=== PATIENT | male | born 1950 | race Caucasian/White ===

== ENCOUNTER 2016-07-10 04:36 | Inpatient (IN) | payer MEDICARE ==
[~2016-07-10] VITALS: Ht 175.3 cm; Wt 104.5 kg
[2016-07-10] VITALS (22 sets, daily range): BP systolic 81–125; BP diastolic 51–75
[2016-07-10] MEDS ORDERED: GUAIFENESIN 200 MG/10 ML LIQUID. PO PRN (05:15)
[2016-07-10] MEDS ORDERED: ALBUTEROL SULFATE 2.5 MG/3 ML NEBU. NEB PRN (05:15)
[2016-07-10 05:42] LABS: HEMATOCRIT 40.9 % (39.0-53.0); HEMOGLOBIN 13.2 g/dL (13.0-17.5); RED BLOOD COUNT 4.61 x10^6/uL (4.30-5.70); RED CELL DISTRIBUTION WIDTH 14.9 % (11.5-14.5); WHITE BLOOD COUNT 13.2 x10^3/uL (4.0-11.0)
[2016-07-10] MEDS ORDERED: AMLO10TA2 PO (05:49)
[2016-07-10] MEDS ORDERED: CARV12.52 PO (05:49)
[2016-07-10] MEDS ORDERED: POTA10CA PO (05:49)
[2016-07-10] MEDS ORDERED: POLY17PO5 PO (05:49)
[2016-07-10] MEDS ORDERED: LEVO175T5 PO (05:49)
[2016-07-10] MEDS ORDERED: ZOLP10TA4 PO (05:49)
[2016-07-10] MEDS ORDERED: FURO20TA3 PO (05:49)
[2016-07-10] MEDS ORDERED: SERT100T PO (05:49)
[2016-07-10] MEDS ORDERED: FERR-26 PO (05:49)
[2016-07-10] MEDS ORDERED: ASPI81TA2 PO (05:49)
[2016-07-10] MEDS ORDERED: ACYC200C PO (05:49)
[2016-07-10] MEDS ORDERED: ATORVASTATIN CA80 MG PO (05:49)
[2016-07-10] MEDS ORDERED: LORA1TAB PO (05:49)
[2016-07-10] MEDS ORDERED: PILO5TAB PO (05:49)
[2016-07-10 06:04] LABS: CALCIUM 8.5 mg/dL (8.5-10.1); CREATININE 1.2 mg/dL (0.7-1.3); GFR 60.8; POTASSIUM 3.8 mmol/L (3.5-5.1)
--- NOTE | 2016-07-10 08:24 | RAD ---
EXAM: Chest, single view. HISTORY: Shortness of air. COMPARISON: None. FINDINGS: A frontal view of the chest is obtained. There is diffuse interstitial infiltrate with partial bilateral lower lobe consolidation and small pleural effusions. There is no pneumothorax. There is enlargement of the cardiac silhouette. IMPRESSION: 1. Diffuse interstitial infiltrate with partial bilateral lower lobe consolidation and small effusions. Follow-up to confirm resolution. 2. Enlargement of the cardiac silhouette, a component of which is likely due to portable technique.
[2016-07-10] MEDS: IPRATRPIUM/ALBUTEROL 0.5/2.5MG 3 ML NEBU. NEB SCH ×4 (08:47→20:31)
[2016-07-10] MEDS ORDERED: ACETAMINOPHEN 500 MG TABLET PO PRN (09:45)
[2016-07-10] MEDS ORDERED: ONDANSETRON PF 4 MG/2 ML VIAL. IV PRN (09:45)
[2016-07-10] MEDS ORDERED: HYDROCODONE/APAP 5/325MG TABLET. PO PRN (09:45)
[2016-07-10] MEDS ORDERED: ZOLPIDEM 5 MG TABLET. PO PRN (09:45)
--- NOTE | 2016-07-10 09:45 | PDOC2 ---
CONSULT Date of Consult Date of Consult DATE: 07/10/16 TIME: 09:44 Reason for Consult Reason for Consult: Congestive heart failure Referring Physician Referring Physician: Dr. Bess Identification/Chief Complaint Chief Complaint Shortness of breath Source Source: Chart review, Patient History of Present Illness Reason for Visit: 66-year-old male presented with shortness of breath that started one hour prior to presentation. He complained of mild chest discomfort with shortness of breath but denied any palpitations or syncope. He stated that he was diagnosed with aspiration pneumonia in the past but feels like this is slightly different than his symptoms at that time. Past Medical History Past Medical History Recurrent aspiration pneumonia Dysphagia Tongue cancer s/p radiation therapy in 2007 Hypothyroidism Hypertension Hyperlipidemia Hypercholesterolemia Peripheral vascular disease BPH Vitamin B12 deficiency Past Surgical History Past Surgical History Tonsillectomy Carpal tunnel surgery Radical neck surgery Family History Family History Coronary artery disease Colon cancer Anxiety/depression Social History Social History Patient quit smoking in 1982, denied any alcohol or drug abuse Current Medications Current Medications Current Medications Albuterol/ Ipratropium (Duoneb) 3 ml RTQID NEB Last administered on 07/10/16t 08:47; Start 07/10/16 at 08:00 Albuterol Sulfate (Ventolin Neb Soln) 2.5 mg PRN Q2HR PRN NEB SHORTNESS OF BREATH; Start 07/10/16 at 05:15 Guaifenesin (Robitussin) 200 mg PRN Q4HRS PRN PO COUGH; Start 07/10/16 at 05:15 Acetaminophen (Tylenol) 500 mg PRN Q6HRS PRN PO MILD PAIN / TEMP; Start at 09:45 Ondansetron HCl (Zofran) 4 mg PRN Q6HRS PRN IV NAUSEA/VOMITING; Start 07/10/16 at 09:45 Morphine Sulfate 2 mg PRN Q2HR PRN IV PAIN; Start 07/10/16 at 09:45; Status UNV Acyclovir (Zovirax) 200 mg 5XDAY PO ; Start 07/10/16 at 10:00 Amlodipine Besylate (Norvasc) 10 mg DAILY PO ; Start 07/10/16 at 10:30 Aspirin (Children'S Aspirin) 81 mg DAILY PO ; Start 07/10/16 at 10:30 Carvedilol (Coreg) 12.5 mg BID PO ; Start 07/10/16 at 10:30 Ferrous Sulfate (Feosol) 325 mg DAILY PO ; Start 07/10/16 at 10:30 Furosemide (Lasix) 20 mg DAILY PO ; Start 07/10/16 at 10:30 Levothyroxine Sodium (Synthroid) 175 mcg DAILY07 PO ; Start 07/10/16 at 10:30 Lorazepam (Ativan) 1 mg BID PO ; Start 07/10/16 at 10:30 Pilocarpine HCl (Salagen) 5 mg BID PO ; Start 07/10/16 at 10:30 Polyethylene Glycol (miraLAX PACKET) 17 gm DAILY PO ; Start 07/10/16 at 10:30 Atorvastatin Calcium (Lipitor) 80 mg QHS PO ; Start 07/10/16 at 21:00 Potassium Chloride (Klor-Con) 10 meq DAILYWBKFT PO ; Start 07/10/16 at 10:30 Sertraline HCl (Zoloft) 100 mg DAILY PO ; Start 07/10/16 at 10:30 Zolpidem Tartrate (Ambien) 5 mg PRN QHS PRN PO INSOMNIA; Start 07/10/16 at 09: 45 Acetaminophen/ Hydrocodone Bitart (Lortab 5/325) 1 tab PRN Q4HRS PRN PO PAIN; Start 07/10/16 at 09:45; Status UNV Active Scripts Active Reported Acyclovir 200 Mg Capsule 1 Cap PO 5XDAY Zolpidem Tartrate 10 Mg Tablet 1 Tab PO QHS Zoloft (Sertraline Hcl) 100 Mg Tablet 1 Tab PO DAILY Potassium Chloride 10 Meq Capsule.er 10 Meq PO DAILY Miralax (Polyethylene Glycol 3350) 17 Gm Powd.pack 1 Packet PO DAILY Pilocarpine Hcl 5 Mg Tablet 5 Mg PO BID Lorazepam 1 Mg Tablet 1 Tab PO BID Levothyroxine Sodium 175 Mcg Tablet 1 Tab PO DAILY Furosemide 20 Mg Tablet 1 Tab PO DAILY Ferrous Sulfate 325 Mg Tablet 1 Tab PO DAILY Carvedilol 12.5 Mg Tablet 1 Tab PO BID Atorvastatin Calcium 80 Mg Tablet 1 Tab PO DAILY Aspirin 81 Mg Tab.chew 1 Tab PO DAILY Amlodipine Besylate 10 Mg Tablet 10 Mg PO DAILY Allergies Allergies: Coded Allergies: ciprofloxacin (Verified Allergy, Intermediate, 07/10/16) codeine (Verified Adverse Reaction, Intermediate, Nausea, 07/10/16) ROS PSYCHOLOGICAL ROS: No: Hallucinations Eyes: No Loss of vision HEENT: No: Epistaxis Respiratory: YES: Cough, Shortness of breath Cardiovascular: yes Chest Pain Gastrointestinal: No Diarrhea, No Vomiting Genitourinary: No Hematuria Neurological: No Seizures Skin: No Rash Physical Exam General: Alert, mild distress HEENT: Atraumatic, PERRLA Lungs: Other (fine bilateral crepitations) Heart: Regular rate Abdomen: Soft, No tenderness Extremities: No edema Psych/Mental Status: Mood NL Vitals VITALS Vital Signs Date Time Temp Pulse Resp B/P Pulse Ox O2 Delivery O2 Flow Rate FiO2 07/10/16 08:50 88 Nasal Cannula 4.0 07/10/16 08:00 69 24 103/59 07/10/16 07:00 98.0 98.0 Labs Labs Laboratory Tests Test 07/10/16 05:15 White Blood Count 13.2x10^3/uL (4.0-11.0) Red Blood Count 4.61x10^6/uL (4.30-5.70) Hemoglobin 13.2g/dL (13.0-17.5) Hematocrit 40.9% (39.0-53.0) Mean Corpuscular Volume 89fL (79-100) Mean Corpuscular Hemoglobin 29pg (25-35) Mean Corpuscular Hemoglobin Concent 32g/dL (31-37) Red Cell Distribution Width 14.9% (11.5-14.5) Platelet Count 171x10^3/uL (140-400) Sodium Level 140mmol/L (136-145) Potassium Level 3.8mmol/L (3.5-5.1) Chloride Level 105mmol/L (98-107) Carbon Dioxide Level 27mmol/L (21-32) Anion Gap 8 (6-14) Blood Urea Nitrogen 31mg/dL (8-26) Creatinine 1.2mg/dL (0.7-1.3) Estimated GFR (Cockcroft-Gault) 60.8 Glucose Level 161mg/dL (70-99) Calcium Level 8.5mg/dL (8.5-10.1) WT-Xiw-V-Type Natriuretic Peptide 406pg/mL (0-124) Laboratory Tests Test 07/10/16 05:15 White Blood Count 13.2x10^3/uL (4.0-11.0) Red Blood Count 4.61x10^6/uL (4.30-5.70) Hemoglobin 13.2g/dL (13.0-17.5) Hematocrit 40.9% (39.0-53.0) Mean Corpuscular Volume 89fL (79-100) Mean Corpuscular Hemoglobin 29pg (25-35) Mean Corpuscular Hemoglobin Concent 32g/dL (31-37) Red Cell Distribution Width 14.9% (11.5-14.5) Platelet Count 171x10^3/uL (140-400) Sodium Level 140mmol/L (136-145) Potassium Level 3.8mmol/L (3.5-5.1) Chloride Level 105mmol/L (98-107) Carbon Dioxide Level 27mmol/L (21-32) Anion Gap 8 (6-14) Blood Urea Nitrogen 31mg/dL (8-26) Creatinine 1.2mg/dL (0.7-1.3) Estimated GFR (Cockcroft-Gault) 60.8 Glucose Level 161mg/dL (70-99) Calcium Level 8.5mg/dL (8.5-10.1) WY-Rdo-K-Type Natriuretic Peptide 406pg/mL (0-124) Assessment/Plan Assessment/Plan 1. Acute respiratory failure most probably secondary to combination of mild acute on chronic diastolic heart failure and interstitial lung disease. Pulmonary team has been consulted for further recommendations. 2. Acute on chronic diastolic heart failure: 2-D echo in December 2015 showed normal left ventricle systolic function with diastolic dysfunction. His BNP is slightly elevated. This seems to have improved with Lasix he received an ED. He is presently well compensated clinically. He stated that he had cardiac catheterization approximately one and a half years ago in [facility] and was told he did not have any coronary artery disease. 3. Hypertension: Controlled 4. Hyperlipidemia: Statins 5. Hypothyroidism: On levothyroxine Thank you for your consultation ASHLEE FOX MD Jul 10, 2016 09:45
[2016-07-10] MEDS ORDERED: ACYCLOVIR 200 MG CAPSULE PO SCH (10:00)
[2016-07-10] MEDS: POLYETHYLENE GLYCOL 3350 17 GM PACKET. PO SCH (10:09)
[2016-07-10] MEDS: FERROUS SULFATE 325 MG TABLET PO SCH (10:10)
[2016-07-10] MEDS: SERTRALINE 50 MG TABLET. PO SCH (10:10)
[2016-07-10] MEDS: ASPIRIN 81 MG TAB.CHEW PO SCH (10:11)
[2016-07-10] MEDS ORDERED: ACYCLOVIR 200 MG CAPSULE PO PRN (10:30)
[2016-07-10] MEDS ORDERED: LEVOTHYROXINE 175 MCG TABLET PO SCH (10:30)
[2016-07-10] MEDS ORDERED: FUROSEMIDE 20 MG TABLET PO SCH (10:30)
[2016-07-10] MEDS ORDERED: LORAZEPAM 1 MG TABLET. PO SCH (10:30)
[2016-07-10] MEDS: CARVEDILOL 12.5 MG TABLET PO SCH ×2 (10:30→19:13)
[2016-07-10] MEDS ORDERED: AMLODIPINE BESYLATE 10 MG TABLET PO SCH (10:30)
[2016-07-10] MEDS: POTASSIUM CHLORIDE 10 MEQ TABLET.ER. PO SCH (10:30)
[2016-07-10] MEDS ORDERED: LORAZEPAM 1 MG TABLET. PO PRN (10:30)
--- NOTE | 2016-07-10 10:30 | PDOC1 ---
History and Physical Date of Admission Date of Admission DATE: 07/10/16 TIME: 10:22 Identification/Chief Complaint Chief Complaint SOA Source Source: Chart review, Patient History of Present Illness History of Present Illness 66 y/o male transferred from [facility] of CHF and respiratory failure, was close to NIPPV/IPPV. Pt seen and examined on ICU with RN at bedside, Looks comfortable now, breathing better, no inc in soa, no CP. BUt admits to feeling SOA after exertion ,. NOt on chronic O2 at home but claims has cpap. Admits to not wathcing his fluiid and salt intake, on lasix at home 20 PO qD and claims compliance,. Legs not swollen. Got 60 mgs lasix at [place], breathing better LAst echo December 2015, EF 55%. Cleared from cards to t/o ICU BNP 406, CXR shows cardiomegaly, modest effusion. Pulmo consulted Pt is hoarse, has hx of throat CA and on pureed diet at home, Lives with , Ambulates with a walker at times,. Sees Dr. Stoll as OP He was in [place] x 5 days last NOv 1 in ICU for CHF and pneumonia Past Medical History Cardiovascular: CHF, HTN Heme/Onc: Other (throat CA) ENT: Other (throat CA) Past Surgical History Past Surgical History: Other (reviewed, non contributory) Family History Family History: No Significant Social History Smoke: Quit ALCOHOL: none Drugs: None Current Medications Current Medications Current Medications Albuterol/ Ipratropium (Duoneb) 3 ml RTQID NEB Last administered on 07/10/16t 08:47; Start 07/10/16 at 08:00 Albuterol Sulfate (Ventolin Neb Soln) 2.5 mg PRN Q2HR PRN NEB SHORTNESS OF BREATH; Start 07/10/16 at 05:15 Guaifenesin (Robitussin) 200 mg PRN Q4HRS PRN PO COUGH; Start 07/10/16 at 05:15 Acetaminophen (Tylenol) 500 mg PRN Q6HRS PRN PO MILD PAIN / TEMP; Start at 09:45 Ondansetron HCl (Zofran) 4 mg PRN Q6HRS PRN IV NAUSEA/VOMITING; Start 07/10/16 at 09:45 Morphine Sulfate 2 mg PRN Q2HR PRN IV PAIN; Start 07/10/16 at 09:45 Acyclovir (Zovirax) 200 mg 5XDAY PO ; Start 07/10/16 at 10:00 Amlodipine Besylate (Norvasc) 10 mg DAILY PO ; Start 07/10/16 at 10:30 Aspirin (Children'S Aspirin) 81 mg DAILY PO Last administered on 07/10/16 10: 11; Start 07/10/16 at 10:30 Carvedilol (Coreg) 12.5 mg BID PO ; Start 07/10/16 at 10:30 Ferrous Sulfate (Feosol) 325 mg DAILY PO Last administered on 07/10/16 10:10; Start 07/10/16 at 10:30 Furosemide (Lasix) 20 mg DAILY PO Last administered on 07/10/16 10:10; Start 07/10/16 at 10:30 Levothyroxine Sodium (Synthroid) 175 mcg DAILY07 PO Last administered on 10:11; Start 07/10/16 at 10:30 Lorazepam (Ativan) 1 mg BID PO ; Start 07/10/16 at 10:30 Pilocarpine HCl (Salagen) 5 mg BID PO ; Start 07/10/16 at 10:30 Polyethylene Glycol (miraLAX PACKET) 17 gm DAILY PO Last administered on 10:09; Start 07/10/16 at 10:30 Atorvastatin Calcium (Lipitor) 80 mg QHS PO ; Start 07/10/16 at 21:00 Potassium Chloride (Klor-Con) 10 meq DAILYWBKFT PO ; Start 07/10/16 at 10:30 Sertraline HCl (Zoloft) 100 mg DAILY PO Last administered on 07/10/16 10:10; Start 07/10/16 at 10:30 Zolpidem Tartrate (Ambien) 5 mg PRN QHS PRN PO INSOMNIA; Start 07/10/16 at 09: 45 Acetaminophen/ Hydrocodone Bitart (Lortab 5/325) 1 tab PRN Q4HRS PRN PO PAIN; Start 07/10/16 at 09:45 Active Scripts Active Reported Acyclovir 200 Mg Capsule 1 Cap PO 5XDAY Zolpidem Tartrate 10 Mg Tablet 1 Tab PO QHS Zoloft (Sertraline Hcl) 100 Mg Tablet 1 Tab PO DAILY Potassium Chloride 10 Meq Capsule.er 10 Meq PO DAILY Miralax (Polyethylene Glycol 3350) 17 Gm Powd.pack 1 Packet PO DAILY Pilocarpine Hcl 5 Mg Tablet 5 Mg PO BID Lorazepam 1 Mg Tablet 1 Tab PO BID Levothyroxine Sodium 175 Mcg Tablet 1 Tab PO DAILY Furosemide 20 Mg Tablet 1 Tab PO DAILY Ferrous Sulfate 325 Mg Tablet 1 Tab PO DAILY Carvedilol 12.5 Mg Tablet 1 Tab PO BID Atorvastatin Calcium 80 Mg Tablet 1 Tab PO DAILY Aspirin 81 Mg Tab.chew 1 Tab PO DAILY Amlodipine Besylate 10 Mg Tablet 10 Mg PO DAILY Allergies Allergies: Coded Allergies: ciprofloxacin (Verified Allergy, Intermediate, 07/10/16) codeine (Verified Adverse Reaction, Intermediate, Nausea, 07/10/16) ROS General: No: Appetite, Chills, Fatigue, Malaise, Night Sweats, Other PSYCHOLOGICAL ROS: No: Anxiety, Behavioral Disorder, Concentration difficultie , Decreased libido, Depression, Disorientation, Hallucinations, Hostility, Irritablity, Memory difficulties, Mood Swings, Obsessive thoughts, Other, Physical abuse, Sexual abuse, Sleep disturbances, Suicidal ideation Eyes: No Blurry vision, No Decreased vision, No Double vision, No Dry eyes, No Excessive tearing, No Eye Pain, No Itchy Eyes, No Loss of vision, No Other, No Photophobia, No Scotomata, No Uses contacts, No Uses glasses HEENT: No: Epistaxis, Heacaches, Hearing change, Nasal congestion, Nasal discharge, Oral lesions, Other, Sinus pain, Sneezing, Snoring, Sore Throat, Tinnitus, Vertigo, Visual Changes, Vocal changes ALLERGY AND IMMUNOLOGY: No: Hives, Insect Bite Sensitivity, Itchy/Watery Eyes, Nasal Congestion, Other, Post Nasal Drip, Seasonal Allergies Hematological and Lymphatic: No: Bleeding Problems, Blood Clots, Blood Transfusions, Brusing, Night Sweats, Other, Pallor, Swollen Lymph Nodes ENDOCRINE: No: Breast Changes, Galactorrhea, Hair Pattern Changes, Hot Flashes , Malaise/lethargy, Mood Swings, Other, Palpitations, Polydipsia/polyuria, Skin Changes, Temperature Intolerance, Unexpected Weight Changes Respiratory: YES: SOB with excertion, Shortness of breath Cardiovascular: No Chest Pain, No Edema, No Lt Headedness, No Orthopnea, No Other, No Palpitations, No Paroxysmal Noc. Dyspnea Gastrointestinal: No Abdominal Pain, No Constipation, No Diarrhea, No Hematochezia, No Melena, No Nausea, No Other, No Vomiting Genitourinary: No , No , No , No , No , No , No , No Discharge, No Dysuria, No Flank Pain, No Frequency, No Hematuria, No Incontinence, No Other, No Pain, No Retention, No Urgency Musculoskeletal: No Gait Disturbance, No Joint Pain, No Joint Stiffness, No Joint Swelling, No Muscle Pain, No Muscular Weakness, No Other, No Pain In:, No Swelling In: Neurological: No Behavorial Changes, No Bowel/Bladder ControlChng, No Confusion , No Dizziness, No Gait Disturbance, No Headaches, No Impaired Coord/balance, No Memory Loss, No Numbness/Tingling, No Other, No Seizures, No Speech Problems , No Tremors, No Visual Changes, No Weakness Physical Exam General: Alert, Oriented X3, Cooperative, No acute distress HEENT: Atraumatic, PERRLA, EOMI Lungs: Normal air movement, Other Heart: S1S2, RRR Abdomen: Normal bowel sounds, Soft, No tenderness, No hepatosplenomegaly, No masses Male Genitals Exam: normal genitalia, normal prostate Rectal Exam: not examined PELVIC: Nml ext genitalia Extremities: No clubbing, No cyanosis, No edema, Normal pulses, No tenderness/ swelling Skin: No rashes, No breakdown, No significant lesion Neuro: Normal gait, Normal speech, Strength at 5/5 X4 ext, Normal tone, Sensation intact, Cranial nerves 3-12 NL, Reflexes 2+ Psych/Mental Status: Mental status NL, Mood NL Vitals Vitals Vital Signs Date Time Temp Pulse Resp B/P Pulse Ox O2 Delivery O2 Flow Rate FiO2 07/10/16 09:00 68 20 107/64 93 Nasal Cannula 4.0 07/10/16 07:00 98.0 98.0 Labs Labs Laboratory Tests Test 07/10/16 05:15 White Blood Count 13.2x10^3/uL (4.0-11.0) Red Blood Count 4.61x10^6/uL (4.30-5.70) Hemoglobin 13.2g/dL (13.0-17.5) Hematocrit 40.9% (39.0-53.0) Mean Corpuscular Volume 89fL (79-100) Mean Corpuscular Hemoglobin 29pg (25-35) Mean Corpuscular Hemoglobin Concent 32g/dL (31-37) Red Cell Distribution Width 14.9% (11.5-14.5) Platelet Count 171x10^3/uL (140-400) Sodium Level 140mmol/L (136-145) Potassium Level 3.8mmol/L (3.5-5.1) Chloride Level 105mmol/L (98-107) Carbon Dioxide Level 27mmol/L (21-32) Anion Gap 8 (6-14) Blood Urea Nitrogen 31mg/dL (8-26) Creatinine 1.2mg/dL (0.7-1.3) Estimated GFR (Cockcroft-Gault) 60.8 Glucose Level 161mg/dL (70-99) Calcium Level 8.5mg/dL (8.5-10.1) VE-Thl-P-Type Natriuretic Peptide 406pg/mL (0-124) Laboratory Tests Test 07/10/16 05:15 White Blood Count 13.2x10^3/uL (4.0-11.0) Red Blood Count 4.61x10^6/uL (4.30-5.70) Hemoglobin 13.2g/dL (13.0-17.5) Hematocrit 40.9% (39.0-53.0) Mean Corpuscular Volume 89fL (79-100) Mean Corpuscular Hemoglobin 29pg (25-35) Mean Corpuscular Hemoglobin Concent 32g/dL (31-37) Red Cell Distribution Width 14.9% (11.5-14.5) Platelet Count 171x10^3/uL (140-400) Sodium Level 140mmol/L (136-145) Potassium Level 3.8mmol/L (3.5-5.1) Chloride Level 105mmol/L (98-107) Carbon Dioxide Level 27mmol/L (21-32) Anion Gap 8 (6-14) Blood Urea Nitrogen 31mg/dL (8-26) Creatinine 1.2mg/dL (0.7-1.3) Estimated GFR (Cockcroft-Gault) 60.8 Glucose Level 161mg/dL (70-99) Calcium Level 8.5mg/dL (8.5-10.1) YS-Gkz-D-Type Natriuretic Peptide 406pg/mL (0-124) VTE Prophylaxis Ordered VTE Prophylaxis Devices: Yes VTE Pharmacological Prophylaxi: Yes Assessment/Plan Assessment/Plan 1. CHF, diastolic predominantly likely (EF 55%) 2. Dietary indiscretion 3, Bilateral modest pleural effusions 4. Hx throat CA with hx radiation? 5. Leukocytosis 6. REcent CAP treated in the hospital 7. 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
[2016-07-10] MEDS: PILOCARPINE 5 MG TABLET. PO SCH ×2 (10:36→19:14)
--- NOTE | 2016-07-10 11:44 | PDOC ---
Provider Note Provider Note dictated acute on chronic progressive aspiration pneumonia see orders TAJ ALEXANDER MD Jul 10, 2016 11:44
[2016-07-10] MEDS: ENOXAPARIN 40 MG/0.4 ML DISP.SYRIN. SQ SCH (12:45)
[2016-07-10] MEDS: PIPERACILLIN/TAZOBACTAM 3.375 GM in IV NORMAL SALINE 50ML 50 ML IV SCH ×3 (12:45→23:59)
--- NOTE | 2016-07-10 12:50 | RAD ---
EXAM: Neck CT without contrast. HISTORY: Dysphasia. TECHNIQUE: Computed tomographic images of the neck were obtained without contrast. One or more of the following individualized dose reduction techniques were utilized for this examination: 1. Automated exposure control. 2. Adjustment of the mA and/or kV according to patient size. 3. Use of iterative reconstruction technique. COMPARISON: None. FINDINGS: There are findings consistent with right neck dissection. There is associated architectural distortion and scarring along the anterior right neck. No pathologically enlarged lymph node or mass is seen, with evaluation limited due to the absence of contrast. The airway is widely patent. The visualized portions of the brain demonstrate subtle areas of hypodensity likely due to chronic small vessel disease. The orbits, paranasal sinuses and mastoid air cells are unremarkable. There are degenerative changes within the cervical spine. No suspicious osseous lesion is seen. There is groundglass and nodular infiltrate within the left upper lobe. There is also suspected groundglass infiltrate within the right upper lobe and superior segment of the left lower lobe. There are enlarged mediastinal and left hilar lymph nodes, possibly reactive in etiology. For reference purposes, an aortopulmonary window lymph node measures 1.9 cm. IMPRESSION: 1. Left upper lobe, and to a lesser extent, right upper lobe and left lower lobe pneumonia. Follow-up to confirm complete resolution. 2. 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 Evaluation for a recurrent or residual neoplasm is limited in the absence of contrast. However, the airway is widely patent. 3. Enlarged left mediastinal and hilar lymph nodes, possibly reactive in etiology. Attention at the time of follow-up can be performed to assess for interval change.
[2016-07-10] MEDS ORDERED: VANCOMYCIN 2 GM in IV NORMAL SALINE 500ML BAG 500 ML IV ONE (13:00)
--- NOTE | 2016-07-10 13:00 | CONS ---
DATE OF CONSULTATION: PULMONARY CONSULTATION ATTENDING PHYSICIAN: Manuel Bess M.D. REASON FOR CONSULTATION: Respiratory failure, abnormal CT chest, diffuse pneumonia. HISTORY OF PRESENT ILLNESS: The patient is a 66-year-old male who has history of throat cancer about 6-7 years ago. He was treated with radiation and chemo. About 18 months ago, he was told that he should not be eating anything by mouth and PEG tube was recommended, but he chose to continue to eat, he said there was a matter of quality of life. However, he has been eating pureed diet. I have reviewed the patient's old CT chest from [place] in 02/2016, where he had minimal left lower lobe infiltrate, which progressed significantly to involve bilateral lower lobes, more on the right than on the left in 04/2016. He was brought into the hospital as a transfer from [facility] with a diagnosis of respiratory failure and CHF. He was placed on noninvasive positive pressure ventilation. The patient currently is on 6 liters of nasal cannula. I have reviewed patient's CT chest. There are extensive and progressive diffuse alveolar infiltrates and almost causing whiteout of the lower lobes. There is also small tiny pleural effusion and some reactive adenopathy. He was also seen by disintegrator operator who diuresed him, but clinically he is not in heart failure. His proBNP is only 406. The patient continues to have a cough with eating and continues to do pureed diet. He has not had a follow up with him ENT in a long time as he moved to [place]. PAST MEDICAL HISTORY: Significant for history of throat cancer, status post radiation and chemo about 6-7 years ago. History of normal ejection fraction of 55%. Very minimal tobacco. PAST SURGICAL HISTORY: No recent surgery. ALLERGIES: CIPRO AND CODEINE. REVIEW OF SYSTEMS: Twelve-point systems were obtained, pertinent positives discussed in my history of present illness, otherwise noncontributory. All systems that were negative were reviewed as well. MEDICATIONS: Reviewed. He is not on antibiotics. PHYSICAL EXAMINATION: VITAL SIGNS: Blood pressure 104/73 seen now down to 85 systolic. Pulse ox was on 6 liters 93%. HEENT: Sclerae nonicteric. NECK: Supple. LUNGS: With coarse breath sounds. CARDIOVASCULAR: Regular rate and rhythm. ABDOMEN: Soft. EXTREMITIES: With no pitting edema. LABORATORY DATA: Reviewed showed BUN is 30 and creatinine 1.2. White cell count 13.2 and hemoglobin is 13.2 as well. IMPRESSION: 1. Acute hypoxic respiratory failure due to highly suspected [id number] aspiration pneumonia. 2. Abnormal ct chest. Review of CT chest from February and April of last year and now done this admission has shown development of progressive and extensive consolidation involving the both lungs and this is highly likely related to chronic aspiration. The patient has throat cancer and was told not to eat anything by mouth, 18 months ago. However, he kept on eating and just doing pureed diet. The CT chest findings and clinical findings highly favor chronic ongoing aspiration. 3. Minimal history of tobacco use. 4. History of throat cancer, status post radiation and chemo done about 6-7 years ago, has not had any followup since then. RECOMMENDATIONS: 1. I have discussed with the patient that at this point, I would keep him NPO. and then repeat a video swallow test. 2. I would also do a CT neck to assess the anatomy regarding throat cancer. 3. The patient is chronically aspirating and he continues to eat pureed diet. Repeat swallow will be ordered and if shows persistent aspiration, he has to make a decision regarding whether he prefers to continue eating against medical advice or rather have a PEG tube. If patient prefers to eat then, I would recommend a DNR/DNI status. 4. Once a CT neck is done, we may assess upper airway anatomy and need for bronchoscopy. 5. In the meantime, I have added Zosyn and vancomycin to cover for gram negative including Pseudomonas and also positive organisms. 6. Continue 6 liters nasal cannula for now. 7. Discussed at length with RN and RT. We will follow along with you. CRITICAL CARE TIME: 39 minutes. TAJ ALEXANDER MD DR: GAURAV/bronwyn JOB#: [id number] / [id number] CALIN
[2016-07-10] MEDS: VANCOMYCIN 1.5 GM in IV NORMAL SALINE 500ML BAG 500 ML IV SCH (13:55)
[2016-07-10] MEDS: LORAZEPAM 2 MG/ML VIAL IV PRN (19:13)
[2016-07-10] MEDS: FAMOTIDINE 20 MG/2 ML VIAL IVP SCH (19:13)
[2016-07-10] MEDS: ATORVASTATIN CALCIUM 40 MG TABLET. PO SCH (19:14)
[2016-07-10] MEDS: MORPHINE SULFATE 2 MG/ML DISP.SYRIN. IV PRN ×3 (19:45→23:59)
[2016-07-11] VITALS (15 sets, daily range): BP systolic 91–126; BP diastolic 51–73
[2016-07-11] MEDS: VANCOMYCIN 1.5 GM in IV NORMAL SALINE 500ML BAG 500 ML IV SCH ×2 (02:00→14:18)
--- NOTE | 2016-07-11 07:25 | PDOC ---
PULMONARY PROGRESS NOTES Subjective Pt with no increase soa cough persist Vitals Vital Signs Date Time Temp Pulse Resp B/P Pulse Ox O2 Delivery O2 Flow Rate FiO2 07/10/16 23:59 Nasal Cannula 07/10/16 20:31 93 5.0 07/10/16 20:00 98.9 74 24 117/54 98.9 ROS: No Nausea, No Chest Pain, No Abdominal Pain, No Increase Cough General: Alert Lungs: Crackles Cardiovascular: S1, S2 Abdomen: Soft, Non-tender Neuro Exam: Alert Extremities: No Edema Skin: Warm Labs Laboratory Tests Test 07/10/16 05:00 07/10/16 05:15 Nasal Screen MRSA (PCR) Negative (Negative) White Blood Count 13.2x10^3/uL (4.0-11.0) Red Blood Count 4.61x10^6/uL (4.30-5.70) Hemoglobin 13.2g/dL (13.0-17.5) Hematocrit 40.9% (39.0-53.0) Mean Corpuscular Volume 89fL (79-100) Mean Corpuscular Hemoglobin 29pg (25-35) Mean Corpuscular Hemoglobin Concent 32g/dL (31-37) Red Cell Distribution Width 14.9% (11.5-14.5) Platelet Count 171x10^3/uL (140-400) Sodium Level 140mmol/L (136-145) Potassium Level 3.8mmol/L (3.5-5.1) Chloride Level 105mmol/L (98-107) Carbon Dioxide Level 27mmol/L (21-32) Anion Gap 8 (6-14) Blood Urea Nitrogen 31mg/dL (8-26) Creatinine 1.2mg/dL (0.7-1.3) Estimated GFR (Cockcroft-Gault) 60.8 Glucose Level 161mg/dL (70-99) Calcium Level 8.5mg/dL (8.5-10.1) [id number]-Type Natriuretic Peptide 406pg/mL (0-124) Medications Active Scripts Medications Dose Route/Sig Days Date Category Acyclovir 200 Mg Capsule 1 Cap PO 5XDAY 07/10/16 Reported Zolpidem Tartrate 10 Mg Tablet 1 Tab PO QHS 07/10/16 Reported Zoloft (Sertraline Hcl) 100 Mg Tablet 1 Tab PO DAILY 1/29/17 Reported Potassium Chloride 10 Meq Capsule.er 10 Meq PO DAILY 07/10/16 Reported Miralax (Polyethylene Glycol 3350) 17 Gm Powd.pack 1 Packet PO DAILY 07/10/16 Reported Pilocarpine Hcl 5 Mg Tablet 5 Mg PO BID 07/10/16 Reported Lorazepam 1 Mg Tablet 1 Tab PO BID 07/10/16 Reported Levothyroxine Sodium 175 Mcg Tablet 1 Tab PO DAILY 07/10/16 Reported Furosemide 20 Mg Tablet 1 Tab PO DAILY 07/10/16 Reported Ferrous Sulfate 325 Mg Tablet 1 Tab PO DAILY 07/10/16 Reported Carvedilol 12.5 Mg Tablet 1 Tab PO BID 07/10/16 Reported Atorvastatin Calcium 80 Mg Tablet 1 Tab PO DAILY 07/10/16 Reported Aspirin 81 Mg Tab.chew 1 Tab PO DAILY 07/10/16 Reported Amlodipine Besylate 10 Mg Tablet 10 Mg PO DAILY 07/10/16 Reported Impression . 1. Acute hypoxic respiratory failure due to highly suspected puvth-ox-vvmvgal aspiration pneumonia. 2. Bilateral infiltrates etiology unclear 3. Minimal history of tobacco use. 4. History of throat cancer, status post radiation and chemo done about 6-7 years ago, has not had any followup since then. CT Neck report noted no new disease limited exam Plan . D/W patient the above findings will proceed with Broncho Reviewed R/B/A pt accepted continue antibx video swallow today UMANG HOYT MD Jul 11, 2016 07:25
[2016-07-11] MEDS: PIPERACILLIN/TAZOBACTAM 3.375 GM in IV NORMAL SALINE 50ML 50 ML IV SCH ×3 (07:55→17:11)
[2016-07-11] MEDS: POTASSIUM CHLORIDE 10 MEQ TABLET.ER. PO SCH (08:00)
[2016-07-11] MEDS: VANCOMYCIN PER PHARMACY MC PRN (08:15)
[2016-07-11] MEDS: IPRATRPIUM/ALBUTEROL 0.5/2.5MG 3 ML NEBU. NEB SCH ×4 (08:43→20:00)
[2016-07-11] MEDS: POLYETHYLENE GLYCOL 3350 17 GM PACKET. PO SCH (09:00)
[2016-07-11] MEDS: CARVEDILOL 12.5 MG TABLET PO SCH ×2 (09:00→21:00)
[2016-07-11] MEDS: FUROSEMIDE 20 MG/2 ML VIAL IVP SCH (09:00)
[2016-07-11] MEDS: PILOCARPINE 5 MG TABLET. PO SCH ×2 (09:00→21:00)
[2016-07-11] MEDS: ASPIRIN 81 MG TAB.CHEW PO SCH (09:00)
[2016-07-11] MEDS: SERTRALINE 50 MG TABLET. PO SCH (09:00)
[2016-07-11] MEDS: FERROUS SULFATE 325 MG TABLET PO SCH (09:00)
[2016-07-11] MEDS ORDERED: MIDAZOLAM HCL/PF 5 MG/5 ML VIAL ONE (09:11)
[2016-07-11] MEDS ORDERED: MIDAZOLAM HCL/PF 5 MG/5 ML VIAL IV ONE (09:15)
[2016-07-11] MEDS: MEPERIDINE PF 25 MG/ML VIAL. IV PRN ×2 (09:28→10:17)
--- NOTE | 2016-07-11 09:35 | PDOC ---
PULMONARY PROGRESS NOTES Subjective Pt with no increase soa cough persist Vitals Vital Signs Date Time Temp Pulse Resp B/P Pulse Ox O2 Delivery O2 Flow Rate FiO2 07/11/16 06:00 76 22 126/51 93 Nasal Cannula 6.0 07/11/16 04:00 98.2 98.2 ROS: No Nausea, No Chest Pain, No Abdominal Pain, No Increase Cough General: Alert Lungs: Crackles Cardiovascular: S1, S2 Abdomen: Soft, Non-tender Neuro Exam: Alert Extremities: No Edema Skin: Warm Labs Laboratory Tests Test 07/10/16 05:00 07/10/16 05:15 Nasal Screen MRSA (PCR) Negative (Negative) White Blood Count 13.2x10^3/uL (4.0-11.0) Red Blood Count 4.61x10^6/uL (4.30-5.70) Hemoglobin 13.2g/dL (13.0-17.5) Hematocrit 40.9% (39.0-53.0) Mean Corpuscular Volume 89fL (79-100) Mean Corpuscular Hemoglobin 29pg (25-35) Mean Corpuscular Hemoglobin Concent 32g/dL (31-37) Red Cell Distribution Width 14.9% (11.5-14.5) Platelet Count 171x10^3/uL (140-400) Sodium Level 140mmol/L (136-145) Potassium Level 3.8mmol/L (3.5-5.1) Chloride Level 105mmol/L (98-107) Carbon Dioxide Level 27mmol/L (21-32) Anion Gap 8 (6-14) Blood Urea Nitrogen 31mg/dL (8-26) Creatinine 1.2mg/dL (0.7-1.3) Estimated GFR (Cockcroft-Gault) 60.8 Glucose Level 161mg/dL (70-99) Calcium Level 8.5mg/dL (8.5-10.1) FK-Kjc-[id number]-Type Natriuretic Peptide 406pg/mL (0-124) Medications Active Scripts Medications Dose Route/Sig Days Date Category Acyclovir 200 Mg Capsule 1 Cap PO 5XDAY 07/10/16 Reported Zolpidem Tartrate 10 Mg Tablet 1 Tab PO QHS 07/10/16 Reported Zoloft (Sertraline Hcl) 100 Mg Tablet 1 Tab PO DAILY 07/10/16 Reported Potassium Chloride 10 Meq Capsule.er 10 Meq PO DAILY 07/10/16 Reported Miralax (Polyethylene Glycol 3350) 17 Gm Powd.pack 1 Packet PO DAILY 07/10/16 Reported Pilocarpine Hcl 5 Mg Tablet 5 Mg PO BID 07/10/16 Reported Lorazepam 1 Mg Tablet 1 Tab PO BID 07/10/16 Reported Levothyroxine Sodium 175 Mcg Tablet 1 Tab PO DAILY 07/10/16 Reported Furosemide 20 Mg Tablet 1 Tab PO DAILY 07/10/16 Reported Ferrous Sulfate 325 Mg Tablet 1 Tab PO DAILY 07/10/16 Reported Carvedilol 12.5 Mg Tablet 1 Tab PO BID 07/10/16 Reported Atorvastatin Calcium 80 Mg Tablet 1 Tab PO DAILY 07/10/16 Reported Aspirin 81 Mg Tab.chew 1 Tab PO DAILY 07/10/16 Reported Amlodipine Besylate 10 Mg Tablet 10 Mg PO DAILY 07/10/16 Reported Impression . 1. Acute hypoxic respiratory failure due to highly suspected ukedi-bd-bvevoto aspiration pneumonia. 2. Bilateral infiltrates etiology unclear 3. Minimal history of tobacco use. 4. History of throat cancer, status post radiation and chemo done about 6-7 years ago, has not had any followup since then. CT Neck report noted no new disease limited exam Plan . D/W patient the above findings will proceed with Broncho Reviewed R/B/A pt accepted continue antibx video swallow today UMANG HOYT MD Jul 11, 2016 09:35
[2016-07-11] MEDS ORDERED: MEPERIDINE PF 25 MG/ML VIAL. IV PRN (09:45)
[2016-07-11] MEDS ORDERED: MIDAZOLAM HCL 2 MG/2 ML VIAL. IV ONE (09:45)
--- NOTE | 2016-07-11 10:29 | PDOC ---
PROGRESS NOTES Chief Complaint Chief Complaint 1. CHF, diastolic predominantly likely (EF 55%) 2. Dietary indiscretion 3, Bilateral modest pleural effusions 4. Hx throat CA with hx radiation? 5. Leukocytosis 6. REcent CAP treated in the hospital 7. Gen weakness 8. Dysphagia History of Present Illness History of Present Illness JUst had a bronch this AM, slightly sleepy from sedation [employer] REPRESENTATIVE has evaluated, recommended videos wallow and keep NPO for now MEds transformed to IV PLAN: ff up bronch results Video swallow scheduled today Ok to t/o ICU PT/OT LAbs in AM Vitals Vitals Vital Signs Date Time Temp Pulse Resp B/P Pulse Ox O2 Delivery O2 Flow Rate FiO2 07/11/16 08:45 94 Nasal Cannula 5.0 07/11/16 06:00 76 22 126/51 07/11/16 04:00 98.2 98.2 Physical Exam General: Alert, Oriented X3, Cooperative, No acute distress Heart: Regular rate Lungs: Crackles Abdomen: Normal bowel sounds, Soft, No tenderness, No hepatosplenomegaly, No masses Extremities: No clubbing, No cyanosis, No edema, Normal pulses, No tenderness/ swelling Skin: No rashes, No breakdown, No significant lesion Review of Systems Review of Systems cant obtain - sleepy Comment Review of Relevant I have reviewed the following items chloe (where applicable) has been applied. Labs Laboratory Tests Test 07/10/16 05:00 07/10/16 05:15 Nasal Screen MRSA (PCR) Negative (Negative) White Blood Count 13.2x10^3/uL (4.0-11.0) Red Blood Count 4.61x10^6/uL (4.30-5.70) Hemoglobin 13.2g/dL (13.0-17.5) Hematocrit 40.9% (39.0-53.0) Mean Corpuscular Volume 89fL (79-100) Mean Corpuscular Hemoglobin 29pg (25-35) Mean Corpuscular Hemoglobin Concent 32g/dL (31-37) Red Cell Distribution Width 14.9% (11.5-14.5) Platelet Count 171x10^3/uL (140-400) Sodium Level 140mmol/L (136-145) Potassium Level 3.8mmol/L (3.5-5.1) Chloride Level 105mmol/L (98-107) Carbon Dioxide Level 27mmol/L (21-32) Anion Gap 8 (6-14) Blood Urea Nitrogen 31mg/dL (8-26) Creatinine 1.2mg/dL (0.7-1.3) Estimated GFR (Cockcroft-Gault) 60.8 Glucose Level 161mg/dL (70-99) Calcium Level 8.5mg/dL (8.5-10.1) SY-Amr-[id number]-Type Natriuretic Peptide 406pg/mL (0-124) Medications Current Medications Albuterol/ Ipratropium (Duoneb) 3 ml RTQID NEB Last administered on 07/11/16 08:43; Start 07/10/16 at 08:00 Albuterol Sulfate (Ventolin Neb Soln) 2.5 mg PRN Q2HR PRN NEB SHORTNESS OF BREATH; Start 07/10/16 at 05:15 Guaifenesin (Robitussin) 200 mg PRN Q4HRS PRN PO COUGH; Start 07/10/16 at 05:15 Acetaminophen (Tylenol) 500 mg PRN Q6HRS PRN PO MILD PAIN / TEMP; Start at 09:45 Ondansetron HCl (Zofran) 4 mg PRN Q6HRS PRN IV NAUSEA/VOMITING; Start 07/10/16 at 09:45 Morphine Sulfate 2 mg PRN Q2HR PRN IV PAIN Last administered on 07/10/16 23:59 ; Start 07/10/16 at 09:45 Acyclovir (Zovirax) 200 mg 5XDAY PO ; Start 07/10/16 at 10:00; Stop 07/10/16 at 10:30; Status DC Amlodipine Besylate (Norvasc) 10 mg DAILY PO ; Start 07/10/16 at 10:30; Stop at 18:05; Status DC Aspirin (Children'S Aspirin) 81 mg DAILY PO Last administered on 07/10/16 10: 11; Start 07/10/16 at 10:30 Carvedilol (Coreg) 12.5 mg BID PO ; Start 07/10/16 at 10:30 Ferrous Sulfate (Feosol) 325 mg DAILY PO Last administered on 07/10/16 10:10; Start 07/10/16 at 10:30 Furosemide (Lasix) 20 mg DAILY PO Last administered on 07/10/16 10:10; Start 07/10/16 at 10:30; Stop 07/10/16 at 18:05; Status DC Levothyroxine Sodium (Synthroid) 175 mcg DAILY07 PO Last administered on 10:11; Start 07/10/16 at 10:30; Stop 07/10/16 at 18:05; Status DC Lorazepam (Ativan) 1 mg BID PO ; Start 07/10/16 at 10:30; Stop 07/10/16 at 10:30 ; Status DC Pilocarpine HCl (Salagen) 5 mg BID PO Last administered on 07/10/16 10:36; Start 07/10/16 at 10:30 Polyethylene Glycol (miraLAX PACKET) 17 gm DAILY PO Last administered on 10:09; Start 07/10/16 at 10:30 Atorvastatin Calcium (Lipitor) 80 mg QHS PO ; Start 07/10/16 at 21:00 Potassium Chloride (Klor-Con) 10 meq DAILYWBKFT PO ; Start 07/10/16 at 10:30 Sertraline HCl (Zoloft) 100 mg DAILY PO Last administered on 07/10/16 10:10; Start 07/10/16 at 10:30 Zolpidem Tartrate (Ambien) 5 mg PRN QHS PRN PO INSOMNIA; Start 07/10/16 at 09: 45 Acetaminophen/ Hydrocodone Bitart (Lortab 5/325) 1 tab PRN Q4HRS PRN PO PAIN; Start 07/10/16 at 09:45 Acyclovir (Zovirax) 200 mg 5XDAY PRN PO RASH; Start 07/10/16 at 10:30 Lorazepam (Ativan) 1 mg BID PRN PO ANXIETY / AGITATION; Start 07/10/16 at 10:30 Enoxaparin Sodium 40 mg 40 mg Q24H SQ Last administered on 07/10/16 12:45; Start 07/10/16 at 11:00 Piperacillin Sod/ Tazobactam Sod/ Sodium Chloride (Zosyn/Iv Sodium Chloride 0.9 % 50ml) 50 ml @ 100 mls/hr Q6HRS IV Last administered on 07/11/16 07:55; Start 07/10/16 at 12:00 Vancomycin HCl 1 each 1 each PRN DAILY PRN MC SEE COMMENTS Last administered on 07/11/16 08:15; Start 07/10/16 at 11:45 Vancomycin HCl 2 gm/Sodium Chloride 500 ml @ 250 mls/hr 1X ONCE IV Last administered on 07/10/16 13:59; Start 07/10/16 at 13:00; Stop 07/10/16 at 14:59 ; Status DC Vancomycin HCl/ Sodium Chloride (Iv Sodium Chloride 0.9% 500ml Bag) 500 ml @ 250 mls/hr Q12H IV Last administered on 07/11/16 02:00; Start 07/11/16 at 01: 00 Vancomycin HCl 1 each 1X ONCE MC ; Start 07/12/16 at 00:30; Stop 07/12/16 at 00 :31 Furosemide 20 mg 20 mg DAILY IVP ; Start 07/11/16 at 09:00 Levothyroxine Sodium/Sodium Chloride (Synthroid/Iv Sodium Chloride 0.9% 50ml) 5 ml @ 100 mls/hr DAILY IVP ; Start 07/11/16 at 09:00 Famotidine (Pepcid) 20 mg BID IVP Last administered on 07/10/16 19:13; Start 07/10/16 at 21:00 Lorazepam (Ativan) 1 mg PRN Q4HRS PRN IV ANXIETY / AGITATION Last administered on 07/10/16 19:13; Start 07/10/16 at 18:15 Midazolam HCl (Versed) 5 mg STK-MED ONCE .ROUTE ; Start 07/11/16 at 09:11; Stop 07/11/16 at 09:12; Status DC Midazolam HCl (Versed) 5 mg 1X ONCE IV Last administered on 07/11/16 09:19; Start 07/11/16 at 09:15; Stop 07/11/16 at 09:16; Status DC Meperidine HCl (Demerol) 25 mg PRN 1X PRN IV SHIVERING Last administered on 10:17; Start 07/11/16 at 09:15; Stop 07/13/16 at 09:14 Meperidine HCl (Demerol) 25 mg PRN 1X PRN IV SHIVERING; Start 07/11/16 at 09:45 ; Stop 07/13/16 at 09:44 Midazolam HCl (Versed) 2 mg 1X ONCE IV Last administered on 07/11/16t 09:45; Start 07/11/16 at 09:45; Stop 07/11/16 at 09:48; Status DC Active Scripts Active Reported Acyclovir 200 Mg Capsule 1 Cap PO 5XDAY Zolpidem Tartrate 10 Mg Tablet 1 Tab PO QHS Zoloft (Sertraline Hcl) 100 Mg Tablet 1 Tab PO DAILY Potassium Chloride 10 Meq Capsule.er 10 Meq PO DAILY Miralax (Polyethylene Glycol 3350) 17 Gm Powd.pack 1 Packet PO DAILY Pilocarpine Hcl 5 Mg Tablet 5 Mg PO BID Lorazepam 1 Mg Tablet 1 Tab PO BID Levothyroxine Sodium 175 Mcg Tablet 1 Tab PO DAILY Furosemide 20 Mg Tablet 1 Tab PO DAILY Ferrous Sulfate 325 Mg Tablet 1 Tab PO DAILY Carvedilol 12.5 Mg Tablet 1 Tab PO BID Atorvastatin Calcium 80 Mg Tablet 1 Tab PO DAILY Aspirin 81 Mg Tab.chew 1 Tab PO DAILY Amlodipine Besylate 10 Mg Tablet 10 Mg PO DAILY Vitals/I & O Vital Sign - Last 24 Hours 07/10/16 07/10/16 07/10/16 07/10/16 10:30 10:30 11:00 12:00 Temp 98.6 98.6 Pulse 64 69 Resp 24 B/P 85/56 85/56 104/60 103/59 Pulse Ox 93 92 O2 Delivery Nasal Cannula O2 Flow Rate 4.0 4.0 07/10/16 07/10/16 07/10/16 07/10/16 12:00 13:00 14:00 15:00 Temp 98.5 98.5 Pulse 82 72 74 Resp 26 26 27 B/P 125/65 116/69 118/66 Pulse Ox 94 93 93 O2 Delivery Nasal Cannula Nasal Cannula Nasal Cannula Nasal Cannula O2 Flow Rate 4.0 4.0 4.0 4.0 07/10/16 07/10/16 07/10/16 07/10/16 16:00 16:00 16:34 17:00 Pulse 74 70 Resp 28 20 B/P 114/65 111/64 Pulse Ox 92 91 92 O2 Delivery Nasal Cannula Nasal Cannula Nasal Cannula Nasal Cannula O2 Flow Rate 4.0 4.0 4.0 4.0 07/10/16 07/10/16 07/10/16 07/10/16 18:00 19:00 19:13 20:00 Pulse 76 76 72 Resp 22 B/P 106/56 110/51 106/56 Pulse Ox 94 93 O2 Delivery Nasal Cannula Nasal Cannula Nasal Cannula O2 Flow Rate 4.0 6.0 4.0 07/10/16 07/10/16 07/10/16 07/10/16 20:00 20:31 21:00 22:00 Temp 98.9 98.9 Pulse 74 76 76 Resp 24 22 B/P 117/54 110/51 114/51 Pulse Ox 92 93 93 93 O2 Delivery Nasal Cannula Nasal Cannula Nasal Cannula Nasal Cannula O2 Flow Rate 6.0 5.0 6.0 6.0 07/10/16 07/10/16 07/11/16 07/11/16 23:00 23:59 00:00 00:00 Temp 98.5 98.5 Pulse 76 74 Resp 24 B/P 116/51 117/54 Pulse Ox 93 92 O2 Delivery Nasal Cannula Nasal Cannula Nasal Cannula Nasal Cannula O2 Flow Rate 6.0 4.0 6.0 07/11/16 07/11/16 07/11/16 07/11/16 01:00 02:00 03:00 04:00 Pulse 76 76 76 Resp B/P 110/51 126/54 110/51 Pulse Ox 93 93 93 O2 Delivery Nasal Cannula Nasal Cannula Nasal Cannula Nasal Cannula O2 Flow Rate 6.0 6.0 6.0 4.0 07/11/16 07/11/16 07/11/16 07/11/16 04:00 05:00 05:00 06:00 Temp 98.2 98.2 Pulse 74 76 70 76 Resp 24 B/P 117/54 122/53 111/64 126/51 Pulse Ox 92 93 92 93 O2 Delivery Nasal Cannula Nasal Cannula Nasal Cannula Nasal Cannula O2 Flow Rate 6.0 6.0 4.0 6.0 07/11/16 08:45 Pulse Ox 94 O2 Delivery Nasal Cannula O2 Flow Rate 5.0 Intake and Output 07/10/16 07/10/16 07/11/16 15:00 23:00 07:00 Intake Total 200 ml 1135 ml Output Total 400 ml 650 ml 650 ml Balance -200 ml 485 ml -650 ml MAYDA BROWNING MD Jul 11, 2016 10:29
--- NOTE | 2016-07-11 11:06 | PDOC ---
CARDIO Progress Notes Date and Time Date of Service 07/11/2016 Time of Evaluation 1050 Subjective Subjective: No Chest Pain, No shortness of breath, No Palpitations, No Dizziness, Other (sleepy after sedation for bronch) Vitals Vitals Vital Signs Date Time Temp Pulse Resp B/P Pulse Ox O2 Delivery O2 Flow Rate FiO2 07/11/16 08:45 94 Nasal Cannula 5.0 07/11/16 06:00 76 22 126/51 07/11/16 04:00 98.2 98.2 Weight Weight [ ] Input and Output Intake and Output Intake and Output 07/11/16 07:00 Intake Total 1335 ml Output Total 1700 ml Balance -365 ml Intake Oral 200 ml Other 1135 ml Output Urine Total 1700 ml Physical Exam HEENT: Neck Supple W Full Motion Chest: Symmetric LUNGS: Other (decreased in bases) Heart: S1S2, RRR, no murmurs, other (tele: SB) Abdomen: Soft N/T Extremities: No Edema Neurology: alert, oriented, follow commands Assessment Assessment 1. Acute respiratory failure most probably secondary to combination of mild acute on chronic diastolic heart failure and interstitial lung disease. Bronch earlier today per PULM 2. Acute on chronic diastolic heart failure: 2-D echo in December 2015 showed normal left ventricle systolic function with diastolic dysfunction. cath about 1.5 years ago without reported CAD diuretics per primary service Currently well compensated 3. Hypertension well controlled 4. Hyperlipidemia continue statin therapy 5. Hypothyroidism remains on replacement therapy 6. throat/neck/tongue cancer - 2007 HOLLAND Moya APRN Jul 11, 2016 11:06
[2016-07-11] MEDS: FAMOTIDINE 20 MG/2 ML VIAL IVP SCH ×2 (11:31→21:34)
[2016-07-11] MEDS: LEVOTHYROXINE SODIUM 100 MCG in IV NORMAL SALINE 50ML 5 ML IVP SCH (11:32)
[2016-07-11] MEDS: ENOXAPARIN 40 MG/0.4 ML DISP.SYRIN. SQ SCH (11:32)
[2016-07-11] MEDS ORDERED: BARIUM SULFATE 40% 148 GM PWD PO ONE (13:15)
--- NOTE | 2016-07-11 13:28 | RAD ---
Video dysphasia study, 07/11/2016: History: Laryngeal cancer, chronic aspiration The swallowing mechanism was examined in the lateral projection while the patient ingested a variety of food materials mixed with barium. 1.3 minutes of fluoroscopy time was utilized. One video loop was recorded by a member of the speech Department. When ingesting the thin liquid material there was prompt laryngeal penetration and aspiration. Similar findings occurred with the chin tuck maneuver. When ingesting honey thickened material or pureed material, the laryngeal penetration and aspiration persisted. The exam was terminated at this point due to the persistent aspiration. IMPRESSION: Abnormal swallowing mechanism with aspiration with all consistencies is a sharp above.
--- NOTE | 2016-07-11 14:16 | PDOC4 ---
PROCEDURE Procedure broncho report dictated no endobronchial lesions UMANG HOYT MD Jul 11, 2016 14:16
[2016-07-11] MEDS: LORAZEPAM 2 MG/ML VIAL IV PRN ×2 (14:17→21:34)
--- NOTE | 2016-07-11 14:52 | OP ---
DATE OF SURGERY: 07/11/2016 PROCEDURE: Bronchoscopy. INDICATION: The patient with bilateral pulmonary infiltrates of unknown etiology, undergoing a diagnostic bronchoscopy. Risks, benefits, and alternatives reviewed with patient. He consented. ANESTHESIA: Versed 3 mg, Demerol 50 mg. DESCRIPTION OF PROCEDURE: Timeout was performed prior to sedation. The patient accepted the risks, benefits and alternatives to the procedure. He was sedated with the above medications. Vital signs and O2 saturation were maintained within normal limits throughout the procedure. The bronchoscope was passed through the right naris. The vocal cords were identified moving bilaterally. The vocal cords were then anesthetized with a total of 5 mL of 4% lidocaine. The bronchoscope was passed through the vocal cords into the proximal trachea, which was normal. The distal trachea was likewise normal. The right and left segments and subsegments were visualized. There was no endobronchial lesion. There was mucus bilaterally, which was cleared away with saline. The scope was then wedged into the right lower lobe segment and a bronchoalveolar lavage was performed. FINDINGS: 1. Normal vocal cords. 2. Epiglottis appeared not to be functioning normal. 3. No endobronchial lesions. 4. Mild secretions and bilaterally cleared with saline. PLAN: We will await the BAL results. The patient tolerated procedure well with no immediate complications. UMANG HOYT MD DR: JEFFY/bronwyn JOB#: [id number] / [id number]
[2016-07-11 15:32] LABS: INR 1.2 (0.8-1.1); PROTHROMBIN TIME PATIENT 14.5 SEC (11.7-14.0)
--- NOTE | 2016-07-11 15:53 | PDOC2 ---
GI CONSULT Reason For Consult: PEG HPI: HPI: 66 y/o male w/ h/o tongue cancer s/p surgery, chemotherapy, and radiation w/ previous PEG placement (in [place] in 2008 x 3 - first 2 fell out) and additional h/o recurrent aspiration pneumonia admitted from [facility] w/ ARF and CHF. He is s/p bronchoscopy earlier today (no endobronchial lesions) and seen in ICU. Videoswallow today was abnormal w/ aspiration to all consistencies. In the past w/ abnormal swallow evals (also in [place]), he chose to continue w / oral nutrition despite aspiration risk. He was first able to maintain a normal diet but switched to pureed foods about 18 months ago after noting an increase in coughing w/ eating and food occasionally getting stuck in his throat. Considering recurrent respiratory issues/infections and another abnormal swallow eval, he would like to have a PEG placed. He is anxious for this to be performed soon so he may be discharged. WBC 13.2, BNP 406. INR is ordered/pending. He is on IV antibiotics and has been kept NPO. PMH: PMH: HTN, HLD, CHF, pneumonia, GERD, BPH, hypothyroidism, PVD, tonsillectomy, tongue cancer s/p surgery, radiation, and chemotherapy, previous PEG FH: Family History: Cancer (colon cancer) Social History: Smoke: Quit ALCOHOL: none Drugs: None ROS: GEN: Denies fevers, chills, sweats HEENT: Denies blurred vision, sore throat CV: Denies chest pain RESP: +SOA +cough GI: Per HPI : Denies hematuria, dysuria ENDO: Denies weight changes NEURO: Denies confusion, dizziness MSK: Denies weakness, joint pain/swelling SKIN: Denies jaundice, pruritus VItals: Vitals: Vital Signs Date Time Temp Pulse Resp B/P Pulse Ox O2 Delivery O2 Flow Rate FiO2 07/11/16 12:28 94 Nasal Cannula 5.0 07/11/16 12:00 98.2 80 18 120/64 98.2 Labs: Labs: Please see EMR. Allergies: Coded Allergies: ciprofloxacin (Verified Allergy, Intermediate, 07/10/16) codeine (Verified Adverse Reaction, Intermediate, Nausea, 07/10/16) Medications: Current Medications Medications (Trade) Dose Ordered Sig/Liliam Route PRN Reason Start Time Stop Time Status Last Admin Dose Admin Vancomycin HCl 1.5 gm/Sodium Chloride 500 ml @ 250 mls/hr Q12H IV 07/11/16 01:00 07/11/16 14:18 Levothyroxine Sodium/Sodium Chloride (Synthroid/Iv Sodium Chloride 0.9% 50ml) 5 ml @ 100 mls/hr DAILY IVP 07/11/16 09:00 07/11/16 11:32 Famotidine (Pepcid) 20 mg BID IVP 07/10/16 21:00 07/11/16 11:31 Lorazepam (Ativan) 1 mg PRN Q4HRS PRN IV ANXIETY / AGITATION 07/10/16 18:15 07/11/16 14:17 Midazolam HCl (Versed) 5 mg 1X ONCE IV 07/11/16 09:15 07/11/16 09:16 DC 07/11/16 09:19 Meperidine HCl (Demerol) 25 mg PRN 1X PRN IV SHIVERING 07/11/16 09:15 07/13/16 09:14 07/11/16 10:17 Midazolam HCl (Versed) 2 mg 1X ONCE IV 07/11/16 09:45 07/11/16 09:48 DC 07/11/16 09:45 Barium Sulfate (Varibar Thin Liquid) 148 gm 1X ONCE PO 07/11/16 13:15 07/11/16 13:16 DC 07/11/16 13:16 Imaging: Imaging: CXR 07/10/16 IMPRESSION: 1. Diffuse interstitial infiltrate with partial bilateral lower lobe consolidation and small effusions. Follow-up to confirm resolution. 2. Enlargement of the cardiac silhouette, a component of which is likely due to portable technique. Neck CT 07/10/16 IMPRESSION: 1. Left upper lobe, and to a lesser extent, right upper lobe and left lower lobe pneumonia. Follow-up to confirm complete resolution. 2. 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 Evaluation for a recurrent or residual neoplasm is limited in the absence of contrast. However, the airway is widely patent. 3. Enlarged left mediastinal and hilar lymph nodes, possibly reactive in etiology. Attention at the time of follow-up can be performed to assess for interval change. Video swallow 07/11/16 IMPRESSION: Abnormal swallowing mechanism with aspiration with all consistencies is a sharp above. PE: GEN: NAD HEENT: Atraumatic, PERRL LUNGS:decreased anteriorly w/ nasal cannula, crackles HEART: distant heart tones ABD: NABS, S/ND/NT, previous PEG scar noted LUQ EXTREMITY: No edema SKIN: No rashes, no jaundice NEURO/PSYCH: A & O 3 A/P: A/P: Dysphagia -history of but progressively worse w/ aspiration pneumonia - wants PEG -abnormal videoswallow 07/11 H/o tongue cancer s/p surgery, chemo, radiation -previous PEG (2008) Recurrent aspiration pneumonia ARF, CHF -per pulm, cardio -s/p bronch 07/11 H/o GERD -occasional symptoms -on IV H2 angelina here CRC screen, h/o colon polyps, FH colon cancer -reports normal colonoscopy ~2 years ago in [place] -- D/w Dr. Wynne. Await INR, continue IV antibiotics. Plan for PEG placement tomorrow afternoon. Hold Lovenox 07/12 prior to PEG placement. VIANCA PRADO Jul 11, 2016 15:53
[2016-07-11] MEDS: AA 3%/ELECTROLYTE-TPN SOLN/GLY 1,000 ML IV SCH (17:11)
[2016-07-11] MEDS: ATORVASTATIN CALCIUM 40 MG TABLET. PO SCH (21:00)
[2016-07-12] VITALS (11 sets, daily range): BP systolic 108–133; BP diastolic 50–74
[2016-07-12] MEDS: PIPERACILLIN/TAZOBACTAM 3.375 GM in IV NORMAL SALINE 50ML 50 ML IV SCH ×4 (00:16→17:39)
[2016-07-12] MEDS: VANCOMYCIN PER PHARMACY MC PRN ×2 (01:29→13:38)
[2016-07-12] MEDS: VANCOMYCIN 1.5 GM in IV NORMAL SALINE 500ML BAG 500 ML IV SCH ×2 (01:33→13:14)
[2016-07-12] MEDS: MORPHINE SULFATE 2 MG/ML DISP.SYRIN. IV PRN ×2 (01:34→22:42)
[2016-07-12] MEDS: LORAZEPAM 2 MG/ML VIAL IV PRN ×5 (02:48→21:54)
[2016-07-12] MEDS: POTASSIUM CHLORIDE 10 MEQ TABLET.ER. PO SCH (08:00)
[2016-07-12] MEDS: ASPIRIN 81 MG TAB.CHEW PO SCH (08:02)
[2016-07-12] MEDS: POLYETHYLENE GLYCOL 3350 17 GM PACKET. PO SCH (08:03)
[2016-07-12] MEDS: PILOCARPINE 5 MG TABLET. PO SCH ×2 (08:03→21:58)
[2016-07-12] MEDS: CARVEDILOL 12.5 MG TABLET PO SCH ×2 (08:03→21:59)
[2016-07-12] MEDS: SERTRALINE 50 MG TABLET. PO SCH (08:03)
[2016-07-12] MEDS: FERROUS SULFATE 325 MG TABLET PO SCH (08:03)
[2016-07-12] MEDS: IPRATRPIUM/ALBUTEROL 0.5/2.5MG 3 ML NEBU. NEB SCH ×4 (08:11→20:20)
[2016-07-12] MEDS: AA 3%/ELECTROLYTE-TPN SOLN/GLY 1,000 ML IV SCH ×2 (08:37→17:39)
[2016-07-12] MEDS: LEVOTHYROXINE SODIUM 100 MCG in IV NORMAL SALINE 50ML 5 ML IVP SCH (08:38)
[2016-07-12] MEDS: FAMOTIDINE 20 MG/2 ML VIAL IVP SCH ×2 (08:38→21:57)
[2016-07-12] MEDS: FUROSEMIDE 20 MG/2 ML VIAL IVP SCH (08:38)
--- NOTE | 2016-07-12 08:45 | PDOC ---
PULMONARY PROGRESS NOTES Subjective Pt with no increase soa cough persist Vitals Vital Signs Date Time Temp Pulse Resp B/P Pulse Ox O2 Delivery O2 Flow Rate FiO2 07/12/16 08:12 92 Nasal Cannula 6.0 07/12/16 02:54 98.1 64 22 108/50 98.1 ROS: No Nausea, No Chest Pain, No Abdominal Pain, No Increase Cough General: Alert Lungs: Crackles Cardiovascular: S1, S2 Abdomen: Soft, Non-tender Neuro Exam: Alert Extremities: No Edema Skin: Warm Labs Laboratory Tests Test 07/11/16 15:12 07/12/16 00:25 Prothrombin Time 14.5SEC (11.7-14.0) Prothromb Time International Ratio 1.2 (0.8-1.1) Vancomycin Level Trough 15.8mcg/mL (10.0-20.0) Vancomycin Last Dose Date Vancomycin Last Dose Time Laboratory Tests Test 07/11/16 15:12 07/12/16 00:25 Prothrombin Time 14.5SEC (11.7-14.0) Prothromb Time International Ratio 1.2 (0.8-1.1) Vancomycin Level Trough 15.8mcg/mL (10.0-20.0) Vancomycin Last Dose Date Vancomycin Last Dose Time Medications Active Scripts Medications Dose Route/Sig Days Date Category Acyclovir 200 Mg Capsule 1 Cap PO 5XDAY 07/10/16 Reported Zolpidem Tartrate 10 Mg Tablet 1 Tab PO QHS 07/10/16 Reported Zoloft (Sertraline Hcl) 100 Mg Tablet 1 Tab PO DAILY 07/10/16 Reported Potassium Chloride 10 Meq Capsule.er 10 Meq PO DAILY 07/10/16 Reported Miralax (Polyethylene Glycol 3350) 17 Gm Powd.pack 1 Packet PO DAILY 07/10/16 Reported Pilocarpine Hcl 5 Mg Tablet 5 Mg PO BID 07/10/16 Reported Lorazepam 1 Mg Tablet 1 Tab PO BID 07/10/16 Reported Levothyroxine Sodium 175 Mcg Tablet 1 Tab PO DAILY 07/10/16 Reported Furosemide 20 Mg Tablet 1 Tab PO DAILY 07/10/16 Reported Ferrous Sulfate 325 Mg Tablet 1 Tab PO DAILY 07/10/16 Reported Carvedilol 12.5 Mg Tablet 1 Tab PO BID 07/10/16 Reported Atorvastatin Calcium 80 Mg Tablet 1 Tab PO DAILY 07/10/16 Reported Aspirin 81 Mg Tab.chew 1 Tab PO DAILY 07/10/16 Reported Amlodipine Besylate 10 Mg Tablet 10 Mg PO DAILY 07/10/16 Reported Impression . 1. Acute hypoxic respiratory failure due to highly suspected [id number] aspiration pneumonia. 2. Bilateral infiltrates etiology unclear 3. Minimal history of tobacco use. 4. History of throat cancer, status post radiation and chemo done about 6-7 years ago, has not had any followup since then. CT Neck report noted no new disease limited exam 5. Dysphagia Plan . PEG schedule for today so far all cultures continue antibx UMANG HOYT MD Jul 12, 2016 08:45
--- NOTE | 2016-07-12 09:01 | PDOC ---
PROGRESS NOTES Chief Complaint Chief Complaint Acute hypoxic respir failure ASSESSMENT AND PLAN: 1. Recent PNA treated in the hospital: suspected recurrent aspiration. on zosyn, vanco, suppl O2 2. Dysphagia: failed video swallow study 07/11, with failed studies in past as well. NPO. GI eval for PEG placement KELI 3. Hx throat CA: treated with XRT 6-7yrs ago 4. CHF: diastolic (EF 55%). compensated. cont lasix 5. Bilateral modest pleural effusions 6. Leukocytosis: 7. Gen weakness: OT/PT 8. HTN: well controlled. labtalol IV PRN 9. HLD: hold statin for now 10. GERD: PPI IV 11. Hypothyroidism: synthroid IV 12. BPH 13. PVD Vitals Vitals Vital Signs Date Time Temp Pulse Resp B/P Pulse Ox O2 Delivery O2 Flow Rate FiO2 07/12/16 08:12 92 Nasal Cannula 6.0 07/12/16 02:54 98.1 64 22 108/50 98.1 Physical Exam General: Alert, Oriented X3, Cooperative, No acute distress Heart: Regular rate Lungs: Crackles Abdomen: Normal bowel sounds, Soft, No tenderness, No hepatosplenomegaly, No masses Extremities: No clubbing, No edema Skin: No rashes Labs LABS Laboratory Tests Test 07/11/16 15:12 07/12/16 00:25 Prothrombin Time 14.5SEC (11.7-14.0) Prothromb Time International Ratio 1.2 (0.8-1.1) Vancomycin Level Trough 15.8mcg/mL (10.0-20.0) Vancomycin Last Dose Date Vancomycin Last Dose Time Review of Systems Review of Systems doing ok. missing his flight today to join family for granddaughter's B.day Comment Medications Current Medications Active Scripts Acyclovir 200 Mg Capsule 1 Cap PO 5XDAY Zolpidem Tartrate 10 Mg Tablet 1 Tab PO QHS Zoloft (Sertraline Hcl) 100 Mg Tablet 1 Tab PO DAILY Potassium Chloride 10 Meq Capsule.er 10 Meq PO DAILY Miralax (Polyethylene Glycol 3350) 17 Gm Powd.pack 1 Packet PO DAILY Pilocarpine Hcl 5 Mg Tablet 5 Mg PO BID Lorazepam 1 Mg Tablet 1 Tab PO BID Levothyroxine Sodium 175 Mcg Tablet 1 Tab PO DAILY Furosemide 20 Mg Tablet 1 Tab PO DAILY Ferrous Sulfate 325 Mg Tablet 1 Tab PO DAILY Carvedilol 12.5 Mg Tablet 1 Tab PO BID Atorvastatin Calcium 80 Mg Tablet 1 Tab PO DAILY Aspirin 81 Mg Tab.chew 1 Tab PO DAILY Amlodipine Besylate 10 Mg Tablet 10 Mg PO DAILY GIORGIO ORTIZ MD Jul 12, 2016 09:01
[2016-07-12] MEDS ORDERED: LABETALOL 20 MG/4 ML DISP.SYRIN. IVP PRN (10:00)
--- NOTE | 2016-07-12 10:01 | PDOC ---
JUVENTINO RICE COTTON BROKER 07/12/16 1001: CARDIO Progress Notes Date and Time Date of Service 07/12/2016 Time of Evaluation 1000 Subjective Subjective: No Chest Pain, No shortness of breath, No Palpitations, No Dizziness Vitals Vitals Vital Signs Date Time Temp Pulse Resp B/P Pulse Ox O2 Delivery O2 Flow Rate FiO2 07/12/16 08:12 92 Nasal Cannula 6.0 07/12/16 07:00 99.0 72 24 133/66 99.0 Weight Weight [ ] Input and Output Intake and Output Intake and Output 07/12/16 07:00 Intake Total 0 ml Output Total 1350 ml Balance -1350 ml Intake Oral 0 ml Output Urine Total 1350 ml Laboratory Labs Laboratory Tests Test 07/11/16 15:12 07/12/16 00:25 Prothrombin Time 14.5SEC (11.7-14.0) Prothromb Time International Ratio 1.2 (0.8-1.1) Vancomycin Level Trough 15.8mcg/mL (10.0-20.0) Vancomycin Last Dose Date Vancomycin Last Dose Time Microbiology Micro Microbiology 07/11/16 Gram Stain - Final, Complete Physical Exam HEENT: Neck Supple W Full Motion Chest: Symmetric LUNGS: Other (bibasilar crackles more to right) Heart: S1S2, RRR (SR with no significant ectopies overnight), no murmurs Abdomen: Soft N/T Extremities: No Edema, No Calf Tenderness Neurology: alert, oriented, follow commands Assessment Assessment 1. Acute respiratory failure with suspected aspiration pneumonia S/P bronchoscopy with noted upper airway normalcy and no noted lesions per pulmonary Abnormal swallow study, PEG planned this afternoon per GI 2. Acute on chronic diastolic heart failure, mild, superimposed by respiratory issues 2-D echo in December 2015 showed normal left ventricle systolic function with diastolic dysfunction. cath about 1.5 years ago without reported CAD Remains compensated, continue with low dose lasix. Good UOP overnight. Defer adjustment to PCP. BMP and Mg today. Replace K and Mg as warranted. Follow up in office at [facility] on 08/03 at 1330. 3. Hypertension well controlled, resume po meds once access is available. Labetolol IV PRN for the meantime. 4. Hyperlipidemia continue statin therapy 5. Hypothyroidism remains on replacement therapy, IV currently 6. 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 Acute on chronic diastolic heart failure better compensated. Acute respiratory failure most probably secondary to aspiration pneumonia. Patient failed swallow study. Plan for PEG tube placement. No further cardiac workup is indicated at this time. Follow-up with our office as scheduled. JUVENTINO RICE APRN Jul 12, 2016 10:01 ASHLEE FOX MD Jul 12, 2016 13:44
[2016-07-12 10:32] LABS: CALCIUM 8.6 mg/dL (8.5-10.1); CREATININE 0.8 mg/dL (0.7-1.3); MAGNESIUM 2.2 mg/dL (1.8-2.4); POTASSIUM 3.8 mmol/L (3.5-5.1)
[2016-07-12] MEDS ORDERED: IV RINGERS,LACTATED 1000ML 1,000 ML IV SCH (11:25)
[2016-07-12] MEDS ORDERED: ONDANSETRON PF 4 MG/2 ML VIAL. IV PRN (11:30)
[2016-07-12] MEDS ORDERED: PROCHLORPERAZINE 10 MG/2 ML VIAL. IV PRN (11:30)
[2016-07-12] MEDS ORDERED: LIDOCAINE 1% 1 ML SYRINGE. ID PRN (11:30)
[2016-07-12] MEDS ORDERED: MORPHINE SULFATE 2 MG/ML DISP.SYRIN. IV PRN (11:30)
[2016-07-12] MEDS ORDERED: FENTANYL PF 100 MCG/2 ML VIAL. IV PRN ×2 (11:30)
[2016-07-12] MEDS ORDERED: HYDROMORPHONE 2 MG/ML VIAL. IV PRN (11:30)
[2016-07-12 11:44] LABS: BASO % 0 % (0-3); EOS % 1 % (0-3); HEMATOCRIT 41.7 % (39.0-53.0); HEMOGLOBIN 13.4 g/dL (13.0-17.5); LYMPH % 8 % (24-48); MEAN CORPUSCULAR HEMOGLOBIN 28 pg (25-35); MEAN CORPUSCULAR HGB CONC 32 g/dL (31-37); MEAN CORPUSCULAR VOLUME 87 fL (79-100); MONO % 8 % (0-9); NEUT % 83 % (31-73); PLATELET COUNT 173 x10^3/uL (140-400); RED CELL DISTRIBUTION WIDTH 14.9 % (11.5-14.5); WHITE BLOOD COUNT 11.7 x10^3/uL (4.0-11.0)
[2016-07-12] MEDS ORDERED: PROPOFOL 20 ML IV ONE (15:48)
[2016-07-12] MEDS ORDERED: LIDOCAINE 2% PF Vial for OR 5 ML VIAL. ONE (15:48)
--- NOTE | 2016-07-12 16:19 | PDOC4 ---
Operative Note Operative Note EGD with PEG Meds propofol 170 mg iv Pre-op dx oropharyngeal dysphagia Post-op dx non-erosive gastritis S/p PEG placement 20 FR Plan begin feedings later TATE Berry MD Jul 12, 2016 16:19
[2016-07-12] MEDS: ATORVASTATIN CALCIUM 40 MG TABLET. PO SCH (21:57)
[2016-07-13] MEDS: PIPERACILLIN/TAZOBACTAM 3.375 GM in IV NORMAL SALINE 50ML 50 ML IV SCH ×4 (00:08→17:17)
[2016-07-13] MEDS: VANCOMYCIN 1.5 GM in IV NORMAL SALINE 500ML BAG 500 ML IV SCH ×2 (01:16→13:07)
[2016-07-13 03:10] VITALS: BP 105/50
[2016-07-13] MEDS: LORAZEPAM 2 MG/ML VIAL IV PRN ×2 (03:39→17:28)
[2016-07-13] MEDS: IPRATRPIUM/ALBUTEROL 0.5/2.5MG 3 ML NEBU. NEB SCH ×4 (07:00→21:10)
[2016-07-13] MEDS: AA 3%/ELECTROLYTE-TPN SOLN/GLY 1,000 ML IV SCH (07:00)
[2016-07-13 07:15] VITALS: BP 117/61
[2016-07-13] MEDS: POTASSIUM CHLORIDE 10 MEQ TABLET.ER. PO SCH (07:48)
[2016-07-13] MEDS: POLYETHYLENE GLYCOL 3350 17 GM PACKET. PO SCH (08:11)
[2016-07-13] MEDS: FAMOTIDINE 20 MG/2 ML VIAL IVP SCH (08:13)
[2016-07-13] MEDS: FUROSEMIDE 20 MG/2 ML VIAL IVP SCH (08:13)
[2016-07-13] MEDS: FERROUS SULFATE 325 MG TABLET PO SCH (08:14)
[2016-07-13] MEDS: CARVEDILOL 12.5 MG TABLET PO SCH (08:14)
[2016-07-13] MEDS: ASPIRIN 81 MG TAB.CHEW PO SCH (08:14)
[2016-07-13] MEDS: PILOCARPINE 5 MG TABLET. PO SCH ×2 (08:14→20:37)
[2016-07-13] MEDS: SERTRALINE 50 MG TABLET. PO SCH (08:14)
[2016-07-13] MEDS: LEVOTHYROXINE SODIUM 100 MCG in IV NORMAL SALINE 50ML 5 ML IVP SCH (08:31)
[2016-07-13 10:35] VITALS: BP 115/59
--- NOTE | 2016-07-13 10:59 | PDOC ---
Subjective: Subjective: A little sore. Breathing okay. Objective: Vital Signs: Vital Signs Date Time Temp Pulse Resp B/P Pulse Ox O2 Delivery O2 Flow Rate FiO2 07/13/16 10:35 98.1 66 18 115/59 92 Nasal Cannula 5.0 98.1 Labs: Laboratory Tests Test 07/12/16 11:20 White Blood Count 11.7x10^3/uL Red Blood Count 4.80x10^6/uL Hemoglobin 13.4g/dL Hematocrit 41.7% Mean Corpuscular Volume 87fL Mean Corpuscular Hemoglobin 28pg Mean Corpuscular Hemoglobin Concent 32g/dL Red Cell Distribution Width 14.9% Platelet Count 173x10^3/uL Neutrophils (%) (Auto) 83% Lymphocytes (%) (Auto) 8% Monocytes (%) (Auto) 8% Eosinophils (%) (Auto) 1% Basophils (%) (Auto) 0% Neutrophils # (Auto) 9.7x10^3uL Lymphocytes # (Auto) 1.0x10^3/uL Monocytes # (Auto) 0.9x10^3/uL Eosinophils # (Auto) 0.1x10^3/uL Basophils # (Auto) 0.0x10^3/uL PE: GEN: NAD LUNGS: nasal cannula HEART: RRR ABD: PEG site looks good, a little tenderness, BS+ NEURO/PSYCH: A & O 3 A/P: Dysphagia w/ h/o tongue cancer and recurrent aspiration pneumonia s/p PEG ARF, CHF -- Per pt and RN - PEG functioning well. VIANCA PRADO Jul 13, 2016 10:59
--- NOTE | 2016-07-13 13:08 | PDOC ---
PROGRESS NOTES Chief Complaint Chief Complaint Acute hypoxic respir failure ASSESSMENT AND PLAN: 1. Recent PNA treated in the hospital: suspected recurrent aspiration. on zosyn, keveno, suppl O2. ok to D/C from Pulm standpoint 2. Dysphagia: failed video swallow study 07/11, with failed studies in past as well. PEG placed yesterday, curently on ATC TF. switch to bolus 3. Hx throat CA: treated with XRT 6-7yrs ago 4. CHF: diastolic (EF 55%). compensated. cont lasix, swich to PO/PEG 5. Bilateral modest pleural effusions 6. Leukocytosis: improving 7. Gen weakness: OT/PT 8. HTN: well controlled. labtalol IV PRN; switch meds to PEG route 9. HLD: statin held; restart per PEG 10. GERD: PPI IV. switch to PEG route 11. Hypothyroidism: synthroid IV, switch to PEG 12. BPH 13. PVD 14. Dispo: home in AM with HH, bolus PEG feeds Vitals Vitals Vital Signs Date Time Temp Pulse Resp B/P Pulse Ox O2 Delivery O2 Flow Rate FiO2 07/13/16 11:58 Nasal Cannula 4.0 07/13/16 10:35 98.1 66 18 115/59 92 98.1 Physical Exam General: Alert, Oriented X3, Cooperative, No acute distress Heart: Regular rate Lungs: Clear Abdomen: Normal bowel sounds, Soft, No tenderness, No hepatosplenomegaly, No masses Extremities: No clubbing, No edema Skin: No rashes Review of Systems Review of Systems eager to go home; is familiar with PEG feeds, but clearly not aware of options in admin Comment Review of Relevant I have reviewed the following items chloe (where applicable) has been applied. Labs Laboratory Tests Test 07/11/16 15:12 07/12/16 00:25 07/12/16 11:20 Prothrombin Time 14.5SEC (11.7-14.0) Prothromb Time International Ratio 1.2 (0.8-1.1) Sodium Level 143mmol/L (136-145) Potassium Level 3.8mmol/L (3.5-5.1) Chloride Level 106mmol/L (98-107) Carbon Dioxide Level 29mmol/L (21-32) Anion Gap 8 (6-14) Blood Urea Nitrogen 21mg/dL (8-26) Creatinine 0.8mg/dL (0.7-1.3) Estimated GFR (Cockcroft-Gault) 97.0 Glucose Level 91mg/dL (70-99) Calcium Level 8.6mg/dL (8.5-10.1) Magnesium Level 2.2mg/dL (1.8-2.4) Vancomycin Level Trough 15.8mcg/mL (10.0-20.0) Vancomycin Last Dose Date Vancomycin Last Dose Time White Blood Count 11.7x10^3/uL (4.0-11.0) Red Blood Count 4.80x10^6/uL (4.30-5.70) Hemoglobin 13.4g/dL (13.0-17.5) Hematocrit 41.7% (39.0-53.0) Mean Corpuscular Volume 87fL (79-100) Mean Corpuscular Hemoglobin 28pg (25-35) Mean Corpuscular Hemoglobin Concent 32g/dL (31-37) Red Cell Distribution Width 14.9% (11.5-14.5) Platelet Count 173x10^3/uL (140-400) Neutrophils (%) (Auto) 83% (31-73) Lymphocytes (%) (Auto) 8% (24-48) Monocytes (%) (Auto) 8% (0-9) Eosinophils (%) (Auto) 1% (0-3) Basophils (%) (Auto) 0% (0-3) Neutrophils # (Auto) 9.7x10^3uL (1.8-7.7) Lymphocytes # (Auto) 1.0x10^3/uL (1.0-4.8) Monocytes # (Auto) 0.9x10^3/uL (0.0-1.1) Eosinophils # (Auto) 0.1x10^3/uL (0.0-0.7) Basophils # (Auto) 0.0x10^3/uL (0.0-0.2) Microbiology 07/11/16 AFB Specimen Processing Tissue - Final, Resulted 07/11/16 Acid Fast Bacilli Culture, Resulted Pending 07/11/16 Gram Stain - Final, Resulted 07/11/16 Fungal Culture, Resulted Pending 07/11/16 Fungal Culture Result 1, Resulted Pending Medications Current Medications Albuterol/ Ipratropium (Duoneb) 3 ml RTQID NEB Last administered on 07/13/16 11 :58; Start 07/10/16 at 08:00 Albuterol Sulfate (Ventolin Neb Soln) 2.5 mg PRN Q2HR PRN NEB SHORTNESS OF BREATH; Start 07/10/16 at 05:15 Guaifenesin (Robitussin) 200 mg PRN Q4HRS PRN PO COUGH; Start 07/10/16 at 05:15 Acetaminophen (Tylenol) 500 mg PRN Q6HRS PRN PO MILD PAIN / TEMP; Start at 09:45 Ondansetron HCl (Zofran) 4 mg PRN Q6HRS PRN IV NAUSEA/VOMITING; Start 07/10/16 at 09:45 Morphine Sulfate 2 mg PRN Q2HR PRN IV PAIN Last administered on 07/12/16 22:42 ; Start 07/10/16 at 09:45 Acyclovir (Zovirax) 200 mg 5XDAY PO ; Start 07/10/16 at 10:00; Stop 07/10/16 at 10:30; Status DC Amlodipine Besylate (Norvasc) 10 mg DAILY PO ; Start 07/10/16 at 10:30; Stop at 18:05; Status DC Aspirin (Children'S Aspirin) 81 mg DAILY PO Last administered on 07/13/16 08:14 ; Start 07/10/16 at 10:30 Carvedilol (Coreg) 12.5 mg BID PO Last administered on 07/13/16 08:14; Start at 10:30 Ferrous Sulfate (Feosol) 325 mg DAILY PO Last administered on 07/13/16 08:14; Start 07/10/16 at 10:30 Furosemide (Lasix) 20 mg DAILY PO Last administered on 07/10/16 10:10; Start 07/10/16 at 10:30; Stop 07/10/16 at 18:05; Status DC Levothyroxine Sodium (Synthroid) 175 mcg DAILY07 PO Last administered on 10:11; Start 07/10/16 at 10:30; Stop 07/10/16 at 18:05; Status DC Lorazepam (Ativan) 1 mg BID PO ; Start 07/10/16 at 10:30; Stop 07/10/16 at 10:30 ; Status DC Pilocarpine HCl (Salagen) 5 mg BID PO Last administered on 07/13/16 08:14; Start 07/10/16 at 10:30 Polyethylene Glycol (miraLAX PACKET) 17 gm DAILY PO Last administered on 10:09; Start 07/10/16 at 10:30 Atorvastatin Calcium (Lipitor) 80 mg QHS PO Last administered on 07/12/16 21: 57; Start 07/10/16 at 21:00 Potassium Chloride (Klor-Con) 10 meq DAILYWBKFT PO ; Start 07/10/16 at 10:30 Sertraline HCl (Zoloft) 100 mg DAILY PO Last administered on 07/13/16 08:14; Start 07/10/16 at 10:30 Zolpidem Tartrate (Ambien) 5 mg PRN QHS PRN PO INSOMNIA; Start 07/10/16 at 09: 45 Acetaminophen/ Hydrocodone Bitart (Lortab 5/325) 1 tab PRN Q4HRS PRN PO PAIN; Start 07/10/16 at 09:45 Acyclovir (Zovirax) 200 mg 5XDAY PRN PO RASH; Start 07/10/16 at 10:30 Lorazepam (Ativan) 1 mg BID PRN PO ANXIETY / AGITATION; Start 07/10/16 at 10:30 Enoxaparin Sodium 40 mg 40 mg Q24H SQ Last administered on 07/11/16 11:32; Start 07/10/16 at 11:00; Stop 07/11/16 at 18:15; Status DC Piperacillin Sod/ Tazobactam Sod/ Sodium Chloride (Zosyn/Iv Sodium Chloride 0.9 % 50ml) 50 ml @ 100 mls/hr Q6HRS IV Last administered on 07/13/16 12:12; Start 07/10/16 at 12:00 Vancomycin HCl 1 each 1 each PRN DAILY PRN MC SEE COMMENTS Last administered on 07/12/16 13:38; Start 07/10/16 at 11:45 Vancomycin HCl 2 gm/Sodium Chloride 500 ml @ 250 mls/hr 1X ONCE IV Last administered on 07/10/16 13:59; Start 07/10/16 at 13:00; Stop 07/10/16 at 14:59 ; Status DC Vancomycin HCl/ Sodium Chloride (Iv Sodium Chloride 0.9% 500ml Bag) 500 ml @ 250 mls/hr Q12H IV Last administered on 07/13/16 01:16; Start 07/11/16 at 01:00 Vancomycin HCl 1 each 1X ONCE MC Last administered on 07/12/16 00:30; Start 07/12/16 at 00:30; Stop 07/12/16 at 00:31; Status DC Furosemide 20 mg 20 mg DAILY IVP Last administered on 07/13/16 08:13; Start at 09:00 Levothyroxine Sodium/Sodium Chloride (Synthroid/Iv Sodium Chloride 0.9% 50ml) 5 ml @ 100 mls/hr DAILY IVP Last administered on 07/13/16 08:31; Start 07/11/16 at 09:00 Famotidine (Pepcid) 20 mg BID IVP Last administered on 07/13/16 08:13; Start at 21:00 Lorazepam (Ativan) 1 mg PRN Q4HRS PRN IV ANXIETY / AGITATION Last administered on 07/13/16 03:39; Start 07/10/16 at 18:15 Midazolam HCl (Versed) 5 mg STK-MED ONCE .ROUTE ; Start 07/11/16 at 09:11; Stop 07/11/16 at 09:12; Status DC Midazolam HCl (Versed) 5 mg 1X ONCE IV Last administered on 07/11/16 09:19; Start 07/11/16 at 09:15; Stop 07/11/16 at 09:16; Status DC Meperidine HCl (Demerol) 25 mg PRN 1X PRN IV SHIVERING Last administered on 10:17; Start 07/11/16 at 09:15; Stop 07/13/16 at 09:14; Status DC Meperidine HCl (Demerol) 25 mg PRN 1X PRN IV SHIVERING; Start 07/11/16 at 09:45 ; Stop 07/13/16 at 09:44; Status DC Midazolam HCl (Versed) 2 mg 1X ONCE IV Last administered on 07/11/16 09:45; Start 07/11/16 at 09:45; Stop 07/11/16 at 09:48; Status DC Barium Sulfate 148 gm 148 gm 1X ONCE PO Last administered on 07/11/16t 13:16; Start 07/11/16 at 13:15; Stop 07/11/16 at 13:16; Status DC Amino Acids/ Glycerin/ Electrolytes (Procalamine) 1,000 ml @ 75 mls/hr [id number] IV Last administered on 07/12/16t 17:39; Start 07/11/16 at 15:00; Stop 07/13/16 at 08:35; Status DC Labetalol HCl (Normodyne) 20 mg PRN Q2HR PRN IVP HYPERTENSION, SEE COMMENTS; Start 07/12/16 at 10:00 Ondansetron HCl (Zofran) 4 mg PRN Q6HRS PRN IV Nausea; Start 07/12/16 at 11:30 ; Stop 07/13/16 at 11:29; Status DC Fentanyl Citrate (Fentanyl 2ml Vial) 25 mcg PRN Q5MIN PRN IV MILD PAIN; Start 07/12/16 at 11:30; Stop 07/13/16 at 11:29; Status DC Fentanyl Citrate (Fentanyl 2ml Vial) 50 mcg PRN Q5MIN PRN IV MODERATE PAIN; Start 07/12/16 at 11:30; Stop 07/13/16 at 11:29; Status DC Morphine Sulfate 1 mg 1 mg PRN Q10MIN PRN IV SEVERE PAIN; Start 07/12/16 at 11: 30; Stop 07/13/16 at 11:29; Status DC Lactated Ringer's (Iv Lactated Ringers) 1,000 ml @ 0 mls/hr Q0M IV ; Start at 11:25; Stop 07/12/16 at 23:24; Status DC Lidocaine HCl 2 ml 1X PRN PRN ID IV START; Start 07/12/16 at 11:30; Stop at 11:29; Status DC Hydromorphone HCl (Dilaudid) 0.5 mg PRN Q10MIN PRN IV SEV PAIN,Second choice; Start 07/12/16 at 11:30; Stop 07/13/16 at 11:29; Status DC Prochlorperazine Edisylate 5 mg 5 mg PACU PRN PRN IV NAUSEA; Start 07/12/16 at 11:30; Stop 07/13/16 at 11:29; Status DC Propofol (Diprivan) 20 ml @ As Directed STK-MED ONCE IV ; Start 07/12/16 at 15: 48; Stop 07/12/16 at 15:49; Status DC Lidocaine HCl (Lidocaine Pf 2% Vial) 5 ml STK-MED ONCE .ROUTE ; Start 07/12/16 at 15:48; Stop 07/12/16 at 15:49; Status DC Active Scripts Active Reported Acyclovir 200 Mg Capsule 1 Cap PO 5XDAY Zolpidem Tartrate 10 Mg Tablet 1 Tab PO QHS Zoloft (Sertraline Hcl) 100 Mg Tablet 1 Tab PO DAILY Potassium Chloride 10 Meq Capsule.er 10 Meq PO DAILY Miralax (Polyethylene Glycol 3350) 17 Gm Powd.pack 1 Packet PO DAILY Pilocarpine Hcl 5 Mg Tablet 5 Mg PO BID Lorazepam 1 Mg Tablet 1 Tab PO BID Levothyroxine Sodium 175 Mcg Tablet 1 Tab PO DAILY Furosemide 20 Mg Tablet 1 Tab PO DAILY Ferrous Sulfate 325 Mg Tablet 1 Tab PO DAILY Carvedilol 12.5 Mg Tablet 1 Tab PO BID Atorvastatin Calcium 80 Mg Tablet 1 Tab PO DAILY Aspirin 81 Mg Tab.chew 1 Tab PO DAILY Amlodipine Besylate 10 Mg Tablet 10 Mg PO DAILY Vitals/I & O Vital Sign - Last 24 Hours 07/12/16 07/12/16 07/12/16 07/12/16 15:09 15:14 16:20 16:30 Temp 97.3 97.3 97.3 97.3 97.3 97.3 Pulse 73 74 78 Resp 20 20 20 B/P 124/78 144/79 Pulse Ox 91 94 94 O2 Delivery Nasal Cannula Nasal Cannula Nasal Cannula O2 Flow Rate 6.0 6.0 5 07/12/16 07/12/16 07/12/16 07/12/16 16:40 16:53 17:05 17:11 Temp 97.3 98.6 97.3 98.6 Pulse 81 78 79 Resp 20 20 B/P 145/81 129/67 124/65 Pulse Ox 95 90 88 92 O2 Delivery Nasal Cannula Nasal Cannula Nasal Cannula Nasal Cannula O2 Flow Rate 5 6.0 6.0 6.0 07/12/16 07/12/16 07/12/16 07/12/16 17:26 17:42 17:56 18:54 Pulse 75 75 77 77 B/P 109/53 122/59 127/64 121/62 Pulse Ox 88 88 92 91 O2 Delivery Nasal Cannula Nasal Cannula Nasal Cannula Nasal Cannula O2 Flow Rate 6.0 6.0 6.0 6.0 07/12/16 07/12/16 07/12/16 07/12/16 19:22 20:00 20:19 21:59 Temp 98.6 98.6 Pulse 76 76 Resp 20 B/P 123/62 123/62 Pulse Ox 91 90 O2 Delivery Nasal Cannula Nasal Cannula Nasal Cannula O2 Flow Rate 6.0 6.0 07/12/16 07/12/16 07/12/16 07/13/16 22:42 23:00 23:10 03:10 Temp 100.9 100.6 100.9 100.6 Pulse 78 65 Resp 22 20 20 20 B/P 122/63 105/50 Pulse Ox 92 91 O2 Delivery Nasal Cannula Nasal Cannula Nasal Cannula Nasal Cannula O2 Flow Rate 6.0 6.0 07/13/16 07/13/16 07/13/16 07/13/16 07:00 07:15 08:00 08:14 Temp 97.6 97.6 Pulse 71 71 Resp 19 B/P 117/61 117/61 Pulse Ox 93 93 O2 Delivery Nasal Cannula Nasal Cannula Nasal Cannula O2 Flow Rate 6.0 5.0 6.0 07/13/16 07/13/16 10:35 11:58 Temp 98.1 98.1 Pulse 66 Resp 18 B/P 115/59 Pulse Ox 92 O2 Delivery Nasal Cannula Nasal Cannula O2 Flow Rate 5.0 4.0 Intake and Output 07/12/16 07/12/16 07/13/16 15:00 23:00 07:00 Intake Total 0 ml 300 ml 250 ml Output Total 0 ml 2350 ml 200 ml Balance 0 ml -2050 ml 50 ml GIORGIO ORTIZ MD Jul 13, 2016 13:07
[2016-07-13 14:37] VITALS: BP 126/68
--- NOTE | 2016-07-13 15:08 | PATHOLOGY ---
CYTOPATHOLOGY REPORT CLINICAL HISTORY: Pneumonia. SPECIMEN(S) RECEIVED: A.Bronchoalveolar lavage, RLL FINAL DIAGNOSIS: A. Right lower lobe bronchoalveolar lavage, ThinPrep and sliver stain: No malignant cells identified. - Bronchial epithelial cells, squamous epithelial cells, and pulmonary macrophages identified within a background of acute inflammatory cells. - Silver stain is negative for Pneumocystis organisms and positive for yeast/fungi morphologically consistent with Alexandrea species. (JPM:all; d/t: 07/13/2016) PATHOLOGIST: Essence Olvera M.D. REPORT ELECTRONICALLY SIGNED BY: Essence Olvera M.D. DATE/TIME: 07/13/2016 15:08 GROSS PATHOLOGY: A. Bronchoalveolar lavage, RLL: The specimen is submitted unfixed, labeled "Essence Olivo". Received by the Cytology Department is four mL of cloudy red fluid. One ThinPrep slide was prepared for pap stain. One ThinPrep slide was prepared for silver stain. (clt 07.11.2016) MIDDLE SCHOOL PROFESSIONAL(S): EMMA Esposito(ASCP) INITIAL CPT CODE(S): A; 36254, 49756 Professional services performed [place] [facility] [place] [address] Technical services performed by [facility] at [address] [place] [address], [address] [address]. PATIENT: ESSENCE OLIVO /AGE: 1105/05/1950 (Age: 66) SEX: M PATIENT #: [id number] ALT CASE #: SPECIMEN COLLECTION DATE: 07/11/2016 SPECIMEN RECEIVED DATE: 07/11/[address] [facility] [address] [place] [address], [address] [place] [address] PHONE: [phone] DIRECTOR: Julián Harp M.D. * * * END OF REPORT * * *
[2016-07-13] MEDS ORDERED: LORAZEPAM 1 MG TABLET. PEG PRN (18:15)
[2016-07-13] MEDS ORDERED: HYDROCODONE/APAP 5/325MG TABLET. PEG PRN (18:15)
[2016-07-13 19:00] VITALS: BP 133/73
[2016-07-13] MEDS: CARVEDILOL 12.5 MG TABLET PEG SCH (20:37)
[2016-07-13] MEDS ORDERED: ATORVASTATIN CALCIUM 40 MG TABLET. PEG SCH (21:00)
[2016-07-13 22:57] VITALS: BP 115/59
[2016-07-14 03:00] VITALS: BP 97/42
[2016-07-14 07:00] VITALS: BP 116/70
[2016-07-14] MEDS ORDERED: LEVOTHYROXINE 100 MCG TABLET PEG SCH (07:00)
[2016-07-14] MEDS: IPRATRPIUM/ALBUTEROL 0.5/2.5MG 3 ML NEBU. NEB SCH ×4 (07:09→11:04)
[2016-07-14] MEDS ORDERED: FERROUS SULFATE ORAL 300 MG/5 ML SOLUTION. PEG SCH (08:00)
[2016-07-14] MEDS: PILOCARPINE 5 MG TABLET. PO SCH (08:28)
[2016-07-14 08:30] VITALS: BP 116/70
[2016-07-14] MEDS: CARVEDILOL 12.5 MG TABLET PEG SCH (08:30)
--- NOTE | 2016-07-14 08:52 | PDOC ---
PROGRESS NOTES Chief Complaint Chief Complaint Acute hypoxic respir failure ASSESSMENT AND PLAN: 1. Recent PNA treated in the hospital: suspected recurrent aspiration. janie foote d/c.ed. suppl O2. ok to D/C from Pulm standpoint 2. Dysphagia: failed video swallow study 07/11, with failed studies in past as well. PEG placed 07/12, currently on ATC TF. switch to bolus 3. Hx throat CA: treated with XRT 6-7yrs ago 4. CHF: diastolic (EF 55%). compensated. cont lasix, switch to PO/PEG. F/ U with cardiology 5. Bilateral modest pleural effusions 6. Leukocytosis: improving 7. Gen weakness: OT/PT 8. HTN: well controlled. home meds restarted 9. HLD: statin per PEG 10. GERD: PPI per PEG 11. Hypothyroidism: synthroid per PEG 12. BPH 13. PVD 14. Dispo: home today with HH, bolus PEG feeds Vitals Vitals Vital Signs Date Time Temp Pulse Resp B/P Pulse Ox O2 Delivery O2 Flow Rate FiO2 07/14/16 08:30 69 116/70 07/14/16 08:00 Nasal Cannula 4.0 07/14/16 07:11 90 07/14/16 07:00 98.4 18 98.4 Physical Exam General: Alert, Oriented X3, Cooperative, No acute distress Heart: Regular rate Lungs: Clear Abdomen: Normal bowel sounds, Soft, No tenderness Extremities: No edema Skin: No rashes Review of Systems Review of Systems eager to go home. PEG functioning well Comment Review of Relevant GIORGIO ORTIZ MD Jul 14, 2016 08:52
[2016-07-14] MEDS ORDERED: SERTRALINE 50 MG TABLET. PEG SCH (09:00)
[2016-07-14] MEDS ORDERED: ASPIRIN 81 MG TAB.CHEW PEG SCH (09:00)
[2016-07-14] MEDS ORDERED: POLYETHYLENE GLYCOL 3350 17 GM PACKET. PEG SCH (09:00)
--- NOTE | 2016-07-14 09:02 | DISCH ---
DISCHARGE INSTRUCTIONS Condition on Discharge Condition on Discharge: Stable Activity After Discharge Activity Instructions for Disc: No restrictions Diet after Discharge Diet after Discharge: Regular Additional Diet Restrictions: nothing by mouth Contacting the DRRodger after DC Call your doctor for: If your condition worsens Follow-Up Follow up with: PCP in 1-2 weeks Follow Up With: Dr Stoll as arranged GIORGIO ORTIZ MD Jul 14, 2016 09:02
[2016-07-14] MEDS ORDERED: FERR300L PEG (09:08)
[2016-07-14 13:23] LABS: LEGION DFA AG Not Detected (.); LEGION DFA INFO Not Detected (.)
--- NOTE | 2016-07-14 14:01 | PDOC ---
PULMONARY PROGRESS NOTES Subjective Pt with no increase soa cough persist Vitals Vital Signs Date Time Temp Pulse Resp B/P Pulse Ox O2 Delivery O2 Flow Rate FiO2 07/14/16 08:30 69 116/70 07/14/16 08:00 Nasal Cannula 4.0 07/14/16 07:11 90 07/14/16 07:00 98.4 18 98.4 ROS: No Nausea, No Chest Pain, No Abdominal Pain, No Increase Cough General: Alert Lungs: Clear Cardiovascular: S1, S2 Abdomen: Soft, Non-tender Neuro Exam: Alert Extremities: No Edema Skin: Warm Medications Active Scripts Medications Dose Route/Sig Days Date Category Acyclovir 200 Mg Capsule 1 Cap PO 5XDAY 07/10/16 Reported Zolpidem Tartrate 10 Mg Tablet 1 Tab PO QHS 07/10/16 Reported Zoloft (Sertraline Hcl) 100 Mg Tablet 1 Tab PO DAILY 07/10/16 Reported Potassium Chloride 10 Meq Capsule.er 10 Meq PO DAILY 07/10/16 Reported Miralax (Polyethylene Glycol 3350) 17 Gm Powd.pack 1 Packet PO DAILY 07/10/16 Reported Pilocarpine Hcl 5 Mg Tablet 5 Mg PO BID 07/10/16 Reported Lorazepam 1 Mg Tablet 1 Tab PO BID 07/10/16 Reported Levothyroxine Sodium 175 Mcg Tablet 1 Tab PO DAILY 07/10/16 Reported Furosemide 20 Mg Tablet 1 Tab PO DAILY 07/10/16 Reported Ferrous Sulfate 325 Mg Tablet 1 Tab PO DAILY 07/10/16 Reported Carvedilol 12.5 Mg Tablet 1 Tab PO BID 07/10/16 Reported Atorvastatin Calcium 80 Mg Tablet 1 Tab PO DAILY 07/10/16 Reported Aspirin 81 Mg Tab.chew 1 Tab PO DAILY 07/10/16 Reported Amlodipine Besylate 10 Mg Tablet 10 Mg PO DAILY 07/10/16 Reported Impression . 1. Acute hypoxic respiratory failure due to highly suspected [id number] aspiration pneumonia. 2. Bilateral infiltrates etiology unclear 3. Minimal history of tobacco use. 4. History of throat cancer, status post radiation and chemo done about 6-7 years ago, has not had any followup since then. CT Neck report noted no new disease limited exam 5. Dysphagia Plan . home follow up with me in 4-6 weeks UMANG HOYT MD Jul 14, 2016 14:01
--- NOTE | 2016-07-15 03:12 | DS ---
DATE OF DISCHARGE: 07/14/2016 ADMISSION DIAGNOSIS: Acute hypoxic respiratory failure. HOSPITAL COURSE: The patient is a 66-year-old gentleman with past medical history of head and neck cancer, status post chemotherapy with concurrent radiation followed by right-sided neck dissection, who presented to the hospital with pneumonia. This was highly suspicious for recurrent aspiration as he had actually failed swallow studies in the past and chosen to ignore them. A swallow study here once again showed aspiration. He, at this time, agreed to PEG placement, which was undertaken on 07/12/2016. He was started with tube feeds initially around the clock, which before discharge, were changed to bolus feeds. The patient had been started on Zosyn and vancomycin for his pneumonia. This was discontinued by infectious disease service and he was switched to Augmentin. All his other home medications were continued and switched to PEG administration. PHYSICAL EXAMINATION: Please refer to note from same day. DISCHARGE DISPOSITION: To home. DISCHARGE CONDITION: Improved. DISCHARGE DIAGNOSES: Aspiration pneumonia, status post percutaneous endoscopic gastrostomy tube placement. DISCHARGE MEDICATIONS: Please refer to MAR. DISCHARGE INSTRUCTIONS: The patient will follow up with PCP in 1-2 weeks. GIORGIO ORTIZ MD DR: UR/nts JOB#: [id number] / [id number] BRANDON Brower MD MTDD
== END 2016-07-14 11:55 | disposition home health service (06) | DRG 177 ==
LOC: 1 WEST ICU 04:36 → 6 SOUTH 07-11 19:06
PROVIDERS: ADMIT Internal Medicine; ATTEND Internal Medicine
PROC: 0DH63UZ Insertion of Feeding Device into Stomach, Percutaneous Approach (ICD-10-PCS; 2016-07-12)
PROC: 0B968ZX Drainage of Right Lower Lobe Bronchus, Via Natural or Artificial Opening Endoscopic, Diagnostic (ICD-10-PCS; principal; 2016-07-13)
DX: J69.0 Pneumonitis due to inhalation of food and vomit (principal); J96.01 Acute respiratory failure with hypoxia; I50.33 Acute on chronic diastolic (congestive) heart failure; N17.9 Acute kidney failure, unspecified; C02.9 Malignant neoplasm of tongue, unspecified; E03.9 Hypothyroidism, unspecified; E78.00 Pure hypercholesterolemia, unspecified; I11.0 Hypertensive heart disease with heart failure; E78.5 Hyperlipidemia, unspecified; I73.9 Peripheral vascular disease, unspecified; K21.9 Gastro-esophageal reflux disease without esophagitis; K29.70 Gastritis, unspecified, without bleeding; N40.0 Benign prostatic hyperplasia without lower urinary tract symptoms; R13.12 Dysphagia, oropharyngeal phase; Z80.0 Family history of malignant neoplasm of digestive organs; Z82.49 Family history of ischemic heart disease and other diseases of the circulatory system; Z85.810 Personal history of malignant neoplasm of tongue; Z87.01 Personal history of pneumonia (recurrent); Z87.891 Personal history of nicotine dependence; Z92.21 Personal history of antineoplastic chemotherapy; Z92.3 Personal history of irradiation; Z79.899 Other long term (current) drug therapy; Z98.890 Other specified postprocedural states
CPT/HCPCS: 31622; 36415; 70490; 71010; 74230; 80048; 80202; 83735; 83880; 85027; 85610; 86713; 87070; 87081; 87102; 87116; 87186; 87205; 87641; 88112; 88312; 94250; 94640; 94760; J1650; J2060; J2175; J2250; J2270; J2543; J2704; J3370; J7040; J7620; S0028; 92526; 92611; 97116

== ENCOUNTER 2019-02-07 15:30 | Inpatient (IN) | payer MEDICARE ==
[~2019-02-07] VITALS: Ht 175.3 cm; Wt 79.9 kg
[2019-02-07] VITALS (7 sets, daily range): BP systolic 89–107; BP diastolic 46–61
[~2019-02-07 15:30] MED LIST: ACYC200C PO; AMLO10TA8 PO; ASPI-630 PO; ATORVASTATIN CA80 MG PO; CARV12.511 PO; FERR300L PEG; FERR325T14 PO; FURO20TA3 PO; LEVO175T5 PO; LORA1TAB PO; PILO5TAB16 PO; POLY17PO29 PO; POTA10TA12 PO; SERT100T PO; ZOLP10TA4 PO
[2019-02-07] MEDS ORDERED: PIP/TAZO PER PHARMACY MC PRN (18:00)
[2019-02-07] MEDS ORDERED: ONDANSETRON PF 4 MG/2 ML VIAL. IV PRN (18:00)
[2019-02-07] MEDS ORDERED: fentaNYL PF VIAL 100 MCG/2 ML VIAL IV PRN (18:00)
[2019-02-07] MEDS ORDERED: 0.9 % SODIUM CHLORIDE 10 ML DISP.SYRIN. IV PRN (18:00)
[2019-02-07] MEDS ORDERED: LORazepam 1 MG TABLET PO PRN (18:00)
[2019-02-07] MEDS ORDERED: traMADol 50 MG TABLET PO PRN (18:00)
[2019-02-07] MEDS ORDERED: CALCIUM CARBONATE 500 MG TAB.CHEW PO PRN (18:00)
[2019-02-07] MEDS ORDERED: ACETAMINOPHEN 325 MG TABLET. PO PRN (18:00)
[2019-02-07] MEDS ORDERED: ROSUVASTATIN PO (18:11)
[2019-02-07] MEDS: CARVEDILOL 12.5 MG TABLET. PO SCH (18:30)
[2019-02-07] MEDS ORDERED: PIPERACILLIN/TAZOBACTAM 3.375 GM in IV DEXTROSE 5% 50 ML IV ONE (18:30)
--- NOTE | 2019-02-07 18:30 | PDOC1 ---
History and Physical Date of Admission Date of Admission DATE: 02/07/19 TIME: 18:22 Identification/Chief Complaint Chief Complaint soa Source Source: Caregiver, Chart review, Patient History of Present Illness History of Present Illness 68-year-old very pleasant male accompanied by equally present , lives at home and does his tube feedings via PEG (bolus feeding). HE is dx laryngeal CA, He was sleepy, bolusing himself, decided to lay down in his bed and then seems like aspirated because more SOA. As per for the past 2 or 3 days has been more SOA usually on 2-3 L nasal cannula when necessary but now has been needing 14 L at home. He is a transfer from [place] at the ER he was hypoxic and needed 10-12 L nasal cannula to be 92% sats. Has been intubated in the past one time. Is a full code. Allergies to Cipro and codeine. ABG at [facility] pH 7.36, CO2 59 with O2 62. We will admit for aspiration pneumonia. Chest x-ray does show right middle lobe and right lower lobe pneumonia. Luciana Romero pulmo consult. Currently on Ventimask. Strict nothing by mouth as that is what he is at home. Allows's mouth swabs to keep wet lips. Feels dehydrated - we'll start some IV fluids. Agreeable to be nothing by mouth or no tube feedings for tonight. We will resume most likely tomorrow. Nutrition consult for bolus feeding - he uses fiber source Past Medical History Cardiovascular: CHF, HTN Heme/Onc: Anemia NOS, Cancer, Other Past Surgical History Past Surgical History: Other (PEG) Family History Family History: No Significant Social History Smoke: Quit ALCOHOL: none Drugs: None Current Medications Current Medications Current Medications Acetaminophen (Tylenol) 650 mg PRN Q6HRS PRN PO Headaches, Temp > 101.5'; Start 02/07/19 at 18:00 Lorazepam (Ativan) 1 mg PRN Q6HRS PRN PO ANXIETY / AGITATION; Start 02/07/19 at 18:00 Ondansetron HCl (Zofran) 4 mg PRN Q6HRS PRN IV NAUSEA/VOMITING; Start 02/07/19 at 18:00 Calcium Carbonate/ Glycine (Tums) 500 mg PRN Q3HRS PRN PO HEARTBURN / GAS; Start 02/07/19 at 18:00 Zolpidem Tartrate (Ambien) 5 mg PRN QHS PRN PO INSOMNIA, MAY REPEAT IN 1HR; Start 02/07/19 at 18:00 Enoxaparin Sodium (Lovenox 40mg Syringe) 40 mg Q24H SQ ; Start 02/07/19 at 18:00; Status UNV Sodium Chloride (Normal Saline Flush) 3 ml QSHIFT PRN IV AFTER MEDS AND BLOOD DRAWS; Start 02/07/19 at 18:00 Fentanyl Citrate (Fentanyl 2ml Vial) 50 mcg PRN Q2HR PRN IV PAIN; Start 02/07/19 at 18:00 Tramadol HCl (Ultram) 50 mg PRN Q6HRS PRN PO MODERATE PAIN; Start 02/07/19 at 18:00 Pantoprazole Sodium (Protonix) 40 mg DAILYAC PO ; Start 02/08/19 at 07:30 Amlodipine Besylate (Norvasc) 10 mg DAILY PO ; Start 02/08/19 at 09:00 Aspirin (Children'S Aspirin) 81 mg DAILY PO ; Start 02/08/19 at 09:00 Carvedilol (Coreg) 12.5 mg BIDWMEALS PO ; Start 02/07/19 at 18:30 Ferrous Sulfate (Feosol) 325 mg DAILYWBKFT PO ; Start 02/08/19 at 08:00 Furosemide (Lasix) 20 mg DAILY PO ; Start 02/08/19 at 09:00 Levothyroxine Sodium (Synthroid) 175 mcg DAILY06 PO ; Start 02/08/19 at 06:00 Lorazepam (Ativan) 1 mg BID PO ; Start 02/07/19 at 21:00 Pilocarpine HCl (Salagen) 5 mg BID PO ; Start 02/07/19 at 21:00 Polyethylene Glycol (miraLAX PACKET) 17 gm DAILY PO ; Start 02/08/19 at 09:00 Potassium Chloride (Klor-Con) 10 meq DAILY PO ; Start 02/08/19 at 09:00 Non-Formulary Medication (Atorvastatin Calcium ) 1 tab DAILY PO ; Start 02/08/19 at 09:00; Status UNV Sertraline HCl (Zoloft) 100 mg DAILY PO ; Start 02/08/19 at 09:00 Vancomycin HCl (Vanco Per Pharmacy) 1 each PRN DAILY PRN MC SEE COMMENTS; Start 02/07/19 at 18:00; Status UNV Piperacillin Sod/ Tazobactam Sod (Zosyn Per Pharmacy) 1 each PRN DAILY PRN MC SEE COMMENTS; Start 02/07/19 at 18:00; Status UNV Active Scripts Active Reported Rosuvastatin Calcium 40 Mg Tablet 40 Mg PO HS Zolpidem Tartrate 10 Mg Tablet 1 Tab PO QHS Zoloft (Sertraline Hcl) 100 Mg Tablet 1 Tab PO DAILY Potassium Chloride 10 Meq Capsule.er 10 Meq PO DAILY Miralax (Polyethylene Glycol 3350) 17 Gm Powd.pack 1 Packet PO DAILY Lorazepam 1 Mg Tablet 1 Tab PO BID Levothyroxine Sodium 175 Mcg Tablet 1 Tab PO DAILY Furosemide 20 Mg Tablet 1 Tab PO DAILY Carvedilol (Carvedilol) 12.5 Mg Tablet 1 Tab PO BID Amlodipine Besylate 10 Mg Tablet 10 Mg PO DAILY Allergies Allergies: Coded Allergies: ciprofloxacin (Verified Allergy, Intermediate, 07/12/16) codeine (Verified Adverse Reaction, Intermediate, Nausea, 07/12/16) ROS General: No: Chills, Night Sweats, Fatigue, Malaise, Appetite, Other PSYCHOLOGICAL ROS: No: Anxiety, Behavioral Disorder, Concentration difficultie, Decreased libido, Depression, Disorientation, Hallucinations, Hostility, Irritablity, Memory difficulties, Mood Swings, Obsessive thoughts, Physical abuse, Sexual abuse, Sleep disturbances, Suicidal ideation, Other Eyes: No Blurry vision, No Decreased vision, No Double vision, No Dry eyes, No Excessive tearing, No Eye Pain, No Itchy Eyes, No Loss of vision, No Photophobia, No Scotomata, No Uses contacts, No Uses glasses, No Other HEENT: No: Heacaches, Visual Changes, Hearing change, Nasal congestion, Nasal discharge, Oral lesions, Sinus pain, Sore Throat, Epistaxis, Sneezing, Snoring, Tinnitus, Vertigo, Vocal changes, Other ALLERGY AND IMMUNOLOGY: No: Hives, Insect Bite Sensitivity, Itchy/Watery Eyes, Nasal Congestion, Post Nasal Drip, Seasonal Allergies, Other Hematological and Lymphatic: No: Bleeding Problems, Blood Clots, Blood Transfusions, Brusing, Night Sweats, Pallor, Swollen Lymph Nodes, Other ENDOCRINE: No: Breast Changes, Galactorrhea, Hair Pattern Changes, Hot Flashes, Malaise/lethargy, Mood Swings, Palpitations, Polydipsia/polyuria, Skin Changes, Temperature Intolerance, Unexpected Weight Changes, Other Breast: No New/Changing Breast Lumps, No Nipple changes, No Nipple discharge, No Other Cardiovascular: No Chest Pain, No Palpitations, No Orthopnea, No Paroxysmal Noc. Dyspnea, No Edema, No Lt Headedness, No Other Gastrointestinal: No Nausea, No Vomiting, No Abdominal Pain, No Diarrhea, No Constipation, No Melena, No Hematochezia, No Other Genitourinary: No Dysuria, No Frequency, No Incontinence, No Hematuria, No Retention, No Discharge, No Urgency, No Pain, No Flank Pain, No Other, No , No , No , No , No , No , No Musculoskeletal: No Gait Disturbance, No Joint Pain, No Joint Stiffness, No Joint Swelling, No Muscle Pain, No Muscular Weakness, No Pain In:, No Swelling In:, No Other Neurological: No Behavorial Changes, No Bowel/Bladder ControlChng, No Confusion, No Dizziness, No Gait Disturbance, No Headaches, No Impaired Coord/balance, No Memory Loss, No Numbness/Tingling, No Seizures, No Speech Problems, No Tremors, No Visual Changes, No Weakness, No Other Skin: No Dry Skin, No Eczema, No Hair Changes, No Lumps, No Mole Changes, No Mottling, No Nail Changes, No Pruritus, No Rash, No Skin Lesion Changes, No Other, No Acne Physical Exam General: Alert, Oriented X3, Cooperative, No acute distress HEENT: Atraumatic, PERRLA Lungs: Normal air movement, Other (equal air entry, diminished on the right with dullness to percussion on the right lung base no wheezing) Heart: S1S2, RRR, no thrills, no rubs, no gallops, no murmurs Cardiovascular: S1, S2 Abdomen: Normal bowel sounds, Soft, No tenderness, No hepatosplenomegaly, No masses Male Genitals Exam: normal genitalia, normal prostate Rectal Exam: not examined PELVIC: Nml ext genitalia Extremities: No clubbing, No cyanosis, No edema, Normal pulses, No tenderness/swelling Skin: No rashes, No breakdown, No significant lesion Neuro: Normal gait, Normal speech, Strength at 5/5 X4 ext, Normal tone, Sensation intact, Cranial nerves 3-12 NL, Reflexes 2+ Psych/Mental Status: Mental status NL, Mood NL VTE Prophylaxis Ordered VTE Prophylaxis Devices: Yes VTE Pharmacological Prophylaxi: Yes Assessment/Plan Assessment/Plan Aspiration pneumonia, right middle and right lower lung lobe consolidation Indwelling PEG from laryngeal CA-strict nothing by mouth and does bolus tube feedings at home History of being intubated distant past Hypoxemic respiratory failure-on 2-3 L when necessary nasal cannula at home but now needing anywhere between 10-14 L to maintain 90-92% sats Full code Allergies to codeine and Cipro Relative hypotension-he claims he runs low PLAN: ICU bed, Ventimask Pulmo consult Vanc Zosyn DuoNeb's and other supportive meds Nothing by mouth Hold bolus feedings for tonight NUtrition consult - uses fiber source at home bolus feeding Further recs pending above Full code I have reconciled home meds-everything via PEG Discussed with and FEED MIXER HELPER at bedside MAYDA BROWNING MD Feb 07, 2019 18:29
[2019-02-07] MEDS: IV NORMAL SALINE 1000ML BAG 1,000 ML IV SCH (18:42)
[2019-02-07] MEDS ORDERED: VANCOMYCIN 2 GM in IV NORMAL SALINE 500ML BAG 500 ML IV ONE (20:00)
[2019-02-07] MEDS: IPRATRPIUM/ALBUTEROL 0.5/2.5MG 3 ML NEBU. NEB SCH (20:31)
[2019-02-07] MEDS ORDERED: PILOCARPINE 5 MG TABLET. PO SCH (21:00)
[2019-02-07] MEDS: ENOXAPARIN 40 MG/0.4 ML SYRINGE. SQ SCH (21:39)
[2019-02-07] MEDS: LORazepam 1 MG TABLET PO SCH (21:39)
[2019-02-07] MEDS: ATORVASTATIN CALCIUM 40 MG TABLET. PO SCH (21:39)
[2019-02-07] MEDS: ZOLPIDEM 5 MG TABLET. PO PRN (21:39)
[2019-02-08] VITALS (23 sets, daily range): BP systolic 71–139; BP diastolic 0–82
[2019-02-08 05:21] LABS: BASO % 0 % (0-3); EOS % 0 % (0-3); HEMATOCRIT 37.4 % (39.0-53.0); HEMOGLOBIN 12.2 g/dL (13.0-17.5); LYMPH # 1.3 x10^3/uL (1.0-4.8); LYMPH % 12 % (24-48); MEAN CORPUSCULAR HEMOGLOBIN 31 pg (25-35); MEAN CORPUSCULAR HGB CONC 33 g/dL (31-37); MEAN CORPUSCULAR VOLUME 94 fL (79-100); MONO # 1.1 x10^3/uL (0.0-1.1); MONO % 10 % (0-9); NEUT # 8.4 x10^3/uL (1.8-7.7); NEUT % 78 % (31-73); PLATELET COUNT 115 x10^3/uL (140-400); RED BLOOD COUNT 3.97 x10^6/uL (4.30-5.70); RED CELL DISTRIBUTION WIDTH 15.3 % (11.5-14.5); WHITE BLOOD COUNT 10.8 x10^3/uL (4.0-11.0)
[2019-02-08 05:27] LABS: PROTHROMBIN TIME PATIENT 15.4 SEC (11.7-14.0)
[2019-02-08 05:40] LABS: ALBUMIN 2.4 g/dL (3.4-5.0); ALBUMIN/GLOBULIN RATIO 0.5 (1.0-1.7); CALCIUM 8.6 mg/dL (8.5-10.1); CREATININE 0.7 mg/dL (0.7-1.3); GFR 112.5; POTASSIUM 3.7 mmol/L (3.5-5.1); TOTAL BILIRUBIN 0.7 mg/dL (0.2-1.0); TOTAL PROTEIN 6.8 g/dL (6.4-8.2)
[2019-02-08] MEDS: PIPERACILLIN/TAZOBACTAM 4.5 GM in IV NORMAL SALINE 100ML 100 ML IV SCH ×3 (06:24→17:37)
[2019-02-08] MEDS: LEVOTHYROXINE 175 MCG TABLET PO SCH (06:24)
[2019-02-08] MEDS: IV NORMAL SALINE 1000ML BAG 1,000 ML IV SCH (06:24)
[2019-02-08] MEDS: VANCOMYCIN PER PHARMACY MC PRN ×3 (06:25→14:52)
--- NOTE | 2019-02-08 06:25 | NUR ---
Pharmacy Vancomycin Dosing Note S:Consulted to monitor and dose vancomycin started 02/07/19. O:ESSENCE HOLT is a 68 year old M with Pneumonia . Height: 5 feet, 9 inches Weight: 74.709582 kg [place] Body Weight: 70.70 Adjusted Body Weight: 72.18 Dosing Weight: Actual Other Antibiotics: ZOSYN 4.5 GM Q6H LABS: Last BUN: 19 Last Creatinine: 0.7 Creatinine Clearance: 73 mL/min Last WBC: 10.8 Last Procalcitonin: Tmax (past 24 hours): Microbiology: I/O: Drug Levels: Last level: on at Last dose given 02/07/19 at 2000 Vancomycin Dosing: Loading Dose: 2000 mg x1 Dosing Weight: Actual Target Trough: 15-20 A: Based on: WT AND CRCL P: 1. Begin Vancomycin 1250 mg IV q12h 2. Follow up Trough level on 02/09/19 at 0730 3. Pharmacy will continue to monitor, follow and adjust therapy as needed. RUSSELL OLIVER RPH, 02/08/19 Signed: 02/08/19 at 0625 by RUSSELL OLIVER RPH PHA
[2019-02-08] MEDS: PANTOPRAZOLE 40 MG TABLET.DR. PO SCH (07:30)
[2019-02-08] MEDS ORDERED: FERROUS SULFATE 325 MG TABLET. PO SCH (08:00)
[2019-02-08] MEDS: IPRATRPIUM/ALBUTEROL 0.5/2.5MG 3 ML NEBU. NEB SCH ×4 (08:17→19:51)
--- NOTE | 2019-02-08 08:20 | NUR ---
SS following for discharge planning. Pt is from home with spouse and is currently on Bipap. No discharge needs noted at this time. SS will continue to follow for discharge planning.
[2019-02-08] MEDS ORDERED: POTASSIUM CHLORIDE 10 MEQ TABLET.ER. PO SCH (09:00)
[2019-02-08] MEDS ORDERED: NON FORMULARY ITEM (Atorvastatin Calcium 1 TAB) PO SCH (09:00)
[2019-02-08] MEDS ORDERED: ASPIRIN CHEWABLE 81 MG TABLET. PO SCH (09:00)
[2019-02-08] MEDS: FUROSEMIDE 20 MG TABLET PO SCH (09:11)
[2019-02-08] MEDS: SERTRALINE 50 MG TABLET. PO SCH (09:11)
[2019-02-08] MEDS: VANCOMYCIN 1.25 GM in IV NORMAL SALINE 250ML 250 ML IV SCH ×2 (09:11→19:45)
[2019-02-08] MEDS: CARVEDILOL 12.5 MG TABLET. PO SCH ×2 (09:12→17:00)
[2019-02-08] MEDS: LORazepam 1 MG TABLET PO SCH ×2 (09:12→20:53)
[2019-02-08] MEDS: amLODIPine BESYLATE 10 MG TABLET PO SCH (09:13)
[2019-02-08] MEDS: POLYETHYLENE GLYCOL 3350 17 GM PACKET. PO SCH (09:14)
--- NOTE | 2019-02-08 09:48 | PDOC ---
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-strict nothing by mouth and does bolus tube feedings at home History of being intubated distant past Hypoxemic respiratory failure-on 2-3 L when necessary nasal cannula at home but now needing anywhere between 10-14 L to maintain 90-92% sats Full code Allergies to codeine and Cipro Relative hypotension-he claims he runs low History of Present Illness History of Present Illness ON venti mask this AM THirsty, wants his TF re started Lives at home with full code Pretty decent QOL PLAn: COnt broad spectrum to cover gram pos and gram neg Signif hypoxia at [facility] and at home (14 LNC and sats 92%) Await pulmo rounds ok to restart his bolus TFs - keep upright dw [employer] yoshi Vitals Vitals Vital Signs Date Time Temp Pulse Resp B/P (MAP) Pulse Ox O2 Delivery O2 Flow Rate FiO2 02/08/19 09:15 105/60 02/08/19 09:15 87 02/08/19 08:17 92 NonRebreather Mask 15.0 02/08/19 06:00 18 02/08/19 04:00 99.5 99.5 Physical Exam General: Alert, Oriented X3, Cooperative, No acute distress Heart: Regular rate, Normal S1, Normal S2 Lungs: Clear Abdomen: Normal bowel sounds, Soft, No tenderness, No hepatosplenomegaly, No masses Extremities: No clubbing, No cyanosis, No edema, Normal pulses, No tenderness/swelling Skin: No rashes, No breakdown, No significant lesion Labs LABS Laboratory Tests Test 02/08/19 04:30 White Blood Count 10.8 x10^3/uL (4.0-11.0) Red Blood Count 3.97 x10^6/uL (4.30-5.70) Hemoglobin 12.2 g/dL (13.0-17.5) Hematocrit 37.4 % (39.0-53.0) Mean Corpuscular Volume 94 fL (79-100) Mean Corpuscular Hemoglobin 31 pg (25-35) Mean Corpuscular Hemoglobin Concent 33 g/dL (31-37) Red Cell Distribution Width 15.3 % (11.5-14.5) Platelet Count 115 x10^3/uL (140-400) Neutrophils (%) (Auto) 78 % (31-73) Lymphocytes (%) (Auto) 12 % (24-48) Monocytes (%) (Auto) 10 % (0-9) Eosinophils (%) (Auto) 0 % (0-3) Basophils (%) (Auto) 0 % (0-3) Neutrophils # (Auto) 8.4 x10^3/uL (1.8-7.7) Lymphocytes # (Auto) 1.3 x10^3/uL (1.0-4.8) Monocytes # (Auto) 1.1 x10^3/uL (0.0-1.1) Eosinophils # (Auto) 0.0 x10^3/uL (0.0-0.7) Basophils # (Auto) 0.0 x10^3/uL (0.0-0.2) Prothrombin Time 15.4 SEC (11.7-14.0) Prothromb Time International Ratio 1.3 (0.8-1.1) Sodium Level 144 mmol/L (136-145) Potassium Level 3.7 mmol/L (3.5-5.1) Chloride Level 105 mmol/L (98-107) Carbon Dioxide Level 32 mmol/L (21-32) Anion Gap 7 (6-14) Blood Urea Nitrogen 19 mg/dL (8-26) Creatinine 0.7 mg/dL (0.7-1.3) Estimated GFR (Cockcroft-Gault) 112.5 BUN/Creatinine Ratio 27 (6-20) Glucose Level 94 mg/dL (70-99) Calcium Level 8.6 mg/dL (8.5-10.1) Total Bilirubin 0.7 mg/dL (0.2-1.0) Aspartate Amino Transf (AST/SGOT) 17 U/L (15-37) Alanine Aminotransferase (ALT/SGPT) 9 U/L (16-63) Alkaline Phosphatase 53 U/L (46-116) Total Protein 6.8 g/dL (6.4-8.2) Albumin 2.4 g/dL (3.4-5.0) Albumin/Globulin Ratio 0.5 (1.0-1.7) Review of Systems Review of Systems soa, no cp, some cough, clear, guerita bd pain, n,v,d, fevers, no depression Assessment and Plan Assessmemt and Plan Problems Medical Problems: (1) Acute hypoxemic respiratory failure Status: Acute (2) Aspiration pneumonia Status: Acute Comment Review of Relevant I have reviewed the following items chloe (where applicable) has been applied. Labs Laboratory Tests Test 02/08/19 04:30 White Blood Count 10.8 x10^3/uL (4.0-11.0) Red Blood Count 3.97 x10^6/uL (4.30-5.70) Hemoglobin 12.2 g/dL (13.0-17.5) Hematocrit 37.4 % (39.0-53.0) Mean Corpuscular Volume 94 fL (79-100) Mean Corpuscular Hemoglobin 31 pg (25-35) Mean Corpuscular Hemoglobin Concent 33 g/dL (31-37) Red Cell Distribution Width 15.3 % (11.5-14.5) Platelet Count 115 x10^3/uL (140-400) Neutrophils (%) (Auto) 78 % (31-73) Lymphocytes (%) (Auto) 12 % (24-48) Monocytes (%) (Auto) 10 % (0-9) Eosinophils (%) (Auto) 0 % (0-3) Basophils (%) (Auto) 0 % (0-3) Neutrophils # (Auto) 8.4 x10^3/uL (1.8-7.7) Lymphocytes # (Auto) 1.3 x10^3/uL (1.0-4.8) Monocytes # (Auto) 1.1 x10^3/uL (0.0-1.1) Eosinophils # (Auto) 0.0 x10^3/uL (0.0-0.7) Basophils # (Auto) 0.0 x10^3/uL (0.0-0.2) Prothrombin Time 15.4 SEC (11.7-14.0) Prothromb Time International Ratio 1.3 (0.8-1.1) Sodium Level 144 mmol/L (136-145) Potassium Level 3.7 mmol/L (3.5-5.1) Chloride Level 105 mmol/L (98-107) Carbon Dioxide Level 32 mmol/L (21-32) Anion Gap 7 (6-14) Blood Urea Nitrogen 19 mg/dL (8-26) Creatinine 0.7 mg/dL (0.7-1.3) Estimated GFR (Cockcroft-Gault) 112.5 BUN/Creatinine Ratio 27 (6-20) Glucose Level 94 mg/dL (70-99) Calcium Level 8.6 mg/dL (8.5-10.1) Total Bilirubin 0.7 mg/dL (0.2-1.0) Aspartate Amino Transf (AST/SGOT) 17 U/L (15-37) Alanine Aminotransferase (ALT/SGPT) 9 U/L (16-63) Alkaline Phosphatase 53 U/L (46-116) Total Protein 6.8 g/dL (6.4-8.2) Albumin 2.4 g/dL (3.4-5.0) Albumin/Globulin Ratio 0.5 (1.0-1.7) Laboratory Tests Test 02/08/19 04:30 White Blood Count 10.8 x10^3/uL (4.0-11.0) Red Blood Count 3.97 x10^6/uL (4.30-5.70) Hemoglobin 12.2 g/dL (13.0-17.5) Hematocrit 37.4 % (39.0-53.0) Mean Corpuscular Volume 94 fL (79-100) Mean Corpuscular Hemoglobin 31 pg (25-35) Mean Corpuscular Hemoglobin Concent 33 g/dL (31-37) Red Cell Distribution Width 15.3 % (11.5-14.5) Platelet Count 115 x10^3/uL (140-400) Neutrophils (%) (Auto) 78 % (31-73) Lymphocytes (%) (Auto) 12 % (24-48) Monocytes (%) (Auto) 10 % (0-9) Eosinophils (%) (Auto) 0 % (0-3) Basophils (%) (Auto) 0 % (0-3) Neutrophils # (Auto) 8.4 x10^3/uL (1.8-7.7) Lymphocytes # (Auto) 1.3 x10^3/uL (1.0-4.8) Monocytes # (Auto) 1.1 x10^3/uL (0.0-1.1) Eosinophils # (Auto) 0.0 x10^3/uL (0.0-0.7) Basophils # (Auto) 0.0 x10^3/uL (0.0-0.2) Prothrombin Time 15.4 SEC (11.7-14.0) Prothromb Time International Ratio 1.3 (0.8-1.1) Sodium Level 144 mmol/L (136-145) Potassium Level 3.7 mmol/L (3.5-5.1) Chloride Level 105 mmol/L (98-107) Carbon Dioxide Level 32 mmol/L (21-32) Anion Gap 7 (6-14) Blood Urea Nitrogen 19 mg/dL (8-26) Creatinine 0.7 mg/dL (0.7-1.3) Estimated GFR (Cockcroft-Gault) 112.5 BUN/Creatinine Ratio 27 (6-20) Glucose Level 94 mg/dL (70-99) Calcium Level 8.6 mg/dL (8.5-10.1) Total Bilirubin 0.7 mg/dL (0.2-1.0) Aspartate Amino Transf (AST/SGOT) 17 U/L (15-37) Alanine Aminotransferase (ALT/SGPT) 9 U/L (16-63) Alkaline Phosphatase 53 U/L (46-116) Total Protein 6.8 g/dL (6.4-8.2) Albumin 2.4 g/dL (3.4-5.0) Albumin/Globulin Ratio 0.5 (1.0-1.7) Medications Current Medications Acetaminophen (Tylenol) 650 mg PRN Q6HRS PRN PO Headaches, Temp > 101.5'; Start 02/07/19 at 18:00 Lorazepam (Ativan) 1 mg PRN Q6HRS PRN PO ANXIETY / AGITATION; Start 02/07/19 at 18:00 Ondansetron HCl (Zofran) 4 mg PRN Q6HRS PRN IV NAUSEA/VOMITING; Start 02/07/19 at 18:00 Calcium Carbonate/ Glycine (Tums) 500 mg PRN Q3HRS PRN PO HEARTBURN / GAS; Start 02/07/19 at 18:00 Zolpidem Tartrate (Ambien) 5 mg PRN QHS PRN PO INSOMNIA, MAY REPEAT IN 1HR Last administered on 02/07/19at 21:39; Start 02/07/19 at 18:00 Enoxaparin Sodium (Lovenox 40mg Syringe) 40 mg Q24H SQ Last administered on 02/07/19at 21:39; Start 02/07/19 at 21:00 Sodium Chloride (Normal Saline Flush) 3 ml QSHIFT PRN IV AFTER MEDS AND BLOOD DRAWS; Start 02/07/19 at 18:00 Fentanyl Citrate (Fentanyl 2ml Vial) 50 mcg PRN Q2HR PRN IV PAIN; Start 02/07/19 at 18:00 Tramadol HCl (Ultram) 50 mg PRN Q6HRS PRN PO MODERATE PAIN; Start 02/07/19 at 18:00 Pantoprazole Sodium (Protonix) 40 mg DAILYAC PO ; Start 02/08/19 at 07:30 Amlodipine Besylate (Norvasc) 10 mg DAILY PO Last administered on 02/08/19 09:15; Start 02/08/19 at 09:00 Aspirin (Children'S Aspirin) 81 mg DAILY PO ; Start 02/08/19 at 09:00; Stop 02/07/19 at 18:25; Status DC Carvedilol (Coreg) 12.5 mg BIDWMEALS PO Last administered on 02/08/19 09:15; Start 02/07/19 at 18:30 Ferrous Sulfate (Feosol) 325 mg DAILYWBKFT PO ; Start 02/08/19 at 08:00; Stop 02/07/19 at 18:25; Status DC Furosemide (Lasix) 20 mg DAILY PO Last administered on 02/08/19 09:15; Start 02/08/19 at 09:00 Levothyroxine Sodium (Synthroid) 175 mcg DAILY06 PO Last administered on 02/08/19 06:25; Start 02/08/19 at 06:00 Lorazepam (Ativan) 1 mg BID PO Last administered on 02/08/19 09:15; Start 02/07/19 at 21:00 Pilocarpine HCl (Salagen) 5 mg BID PO ; Start 02/07/19 at 21:00; Stop 02/07/19 at 18:36; Status DC Polyethylene Glycol (miraLAX PACKET) 17 gm DAILY PO Last administered on 02/08/19 09:15; Start 02/08/19 at 09:00 Potassium Chloride (Klor-Con) 10 meq DAILY PO Last administered on 02/08/19 09:15; Start 02/08/19 at 09:00 Non-Formulary Medication (Atorvastatin Calcium ) 1 tab DAILY PO ; Start 02/08/19 at 09:00; Status UNV Sertraline HCl (Zoloft) 100 mg DAILY PO Last administered on 02/08/19at 09:15; Start 02/08/19 at 09:00 Vancomycin HCl (Vanco Per Pharmacy) 1 each PRN DAILY PRN MC SEE COMMENTS Last administered on 02/08/19at 06:25; Start 02/07/19 at 18:00 Piperacillin Sod/ Tazobactam Sod (Zosyn Per Pharmacy) 1 each PRN DAILY PRN MC SEE COMMENTS; Start 02/07/19 at 18:00 Sodium Chloride 1,000 ml @ 100 mls/hr Q10H IV Last administered on 02/08/19 06:24; Start 02/07/19 at 18:30; Stop 02/08/19 at 08:40; Status DC Atorvastatin Calcium (Lipitor) 80 mg QHS PO Last administered on 02/07/19at 21:39; Start 02/07/19 at 21:00 Vancomycin HCl 2 gm/Sodium Chloride 500 ml @ 250 mls/hr 1X ONCE IV Last administered on 02/07/19at 20:18; Start 02/07/19 at 20:00; Stop 02/07/19 at 21:59; Status DC Piperacillin Sod/ Tazobactam Sod 3.375 gm/Dextrose 50 ml @ 100 mls/hr 1X ONCE IV Last administered on 02/07/19at 18:43; Start 02/07/19 at 18:30; Stop 02/07/19 at 18:59; Status DC Albuterol/ Ipratropium (Duoneb) 3 ml RTQID NEB Last administered on 02/08/19 08:17; Start 02/07/19 at 20:00 Piperacillin Sod/ Tazobactam Sod 4.5 gm/Sodium Chloride 100 ml @ 200 mls/hr Q6HRS IV Last administered on 02/08/19at 06:24; Start 02/08/19 at 06:00 Vancomycin HCl 1.25 gm/Sodium Chloride 250 ml @ 167 mls/hr Q12H IV Last administered on 02/08/19 09:15; Start 02/08/19 at 08:00 Vancomycin HCl (Vancomycin Trough Level) 1 each 1X ONCE MC ; Start 02/09/19 at 07:30; Stop 02/09/19 at 07:31 Active Scripts Active Reported Rosuvastatin Calcium 40 Mg Tablet 40 Mg PO HS Zolpidem Tartrate 10 Mg Tablet 1 Tab PO QHS Zoloft (Sertraline Hcl) 100 Mg Tablet 1 Tab PO DAILY Potassium Chloride 10 Meq Capsule.er 10 Meq PO DAILY Miralax (Polyethylene Glycol 3350) 17 Gm Powd.pack 1 Packet PO DAILY Lorazepam 1 Mg Tablet 1 Tab PO BID Levothyroxine Sodium 175 Mcg Tablet 1 Tab PO DAILY Furosemide 20 Mg Tablet 1 Tab PO DAILY Carvedilol (Carvedilol) 12.5 Mg Tablet 1 Tab PO BID Amlodipine Besylate 10 Mg Tablet 10 Mg PO DAILY Vitals/I & O Vital Sign - Last 24 Hours 02/07/19 02/07/19 02/07/19 02/07/19 17:00 17:15 18:00 19:00 Temp 99.2 99.2 Pulse 92 88 86 Resp 22 22 22 B/P (MAP) 103/60 (74) 98/61 (73) 89/48 (62) Pulse Ox 82 92 91 O2 Delivery NonRebreather Mask Non-Rebreather NonRebreather Mask NonRebreather Mask O2 Flow Rate 15.0 15.0 15.0 15.0 02/07/19 02/07/19 02/07/19 02/07/19 20:00 20:00 20:28 21:00 Temp 99.8 99.8 Pulse 88 86 Resp 22 22 B/P (MAP) 107/46 (66) 100/53 (69) Pulse Ox 92 91 93 O2 Delivery NonRebreather Mask Non-Rebreather NonRebreather Mask NonRebreather Mask O2 Flow Rate 15.0 15.0 15.0 15.0 02/07/19 02/07/19 02/07/19 02/07/19 21:45 22:00 23:00 23:59 Pulse 83 88 84 Resp 22 22 B/P (MAP) 100/53 94/46 (62) 94/46 (62) Pulse Ox 89 87 O2 Delivery NonRebreather Mask BiPAP/CPAP Bi-pap O2 Flow Rate 15.0 02/08/19 02/08/19 02/08/19 02/08/19 00:00 00:01 01:00 02:00 Temp 99.1 99.1 Pulse 78 74 70 Resp 22 22 22 B/P (MAP) 71/43 (52) 101/54 (70) 108/60 (76) Pulse Ox 94 95 98 96 O2 Delivery BiPAP/CPAP BiPAP/CPAP BiPAP/CPAP BiPAP/CPAP 02/08/19 02/08/19 02/08/19 02/08/19 02:25 03:00 04:00 04:00 Temp 99.5 99.5 Pulse 77 85 Resp 18 18 B/P (MAP) 120/62 (81) 103/54 (70) Pulse Ox 95 95 95 O2 Delivery BiPAP/CPAP BiPAP/CPAP BiPAP/CPAP Bi-pap 02/08/19 02/08/19 02/08/19 02/08/19 04:48 05:00 06:00 08:17 Pulse 74 77 Resp 18 18 B/P (MAP) 107/56 (73) 113/66 (82) Pulse Ox 95 95 94 92 O2 Delivery BiPAP/CPAP BiPAP/CPAP BiPAP/CPAP NonRebreather Mask O2 Flow Rate 15.0 02/08/19 02/08/19 09:15 09:15 Pulse 87 B/P (MAP) 105/60 105/60 Intake and Output 02/07/19 02/07/19 02/08/19 14:59 22:59 06:59 Intake Total 0 ml 0 ml Output Total 250 ml 200 ml Balance -250 ml -200 ml MAYDA BROWNING MD Feb 08, 2019 09:48
--- NOTE | 2019-02-08 12:56 | PDOC ---
PULMONARY PROGRESS NOTES Vitals Vital Signs Date Time Temp Pulse Resp B/P (MAP) Pulse Ox O2 Delivery O2 Flow Rate FiO2 02/08/19 11:52 92 NonRebreather Mask 15.0 02/08/19 09:15 105/60 02/08/19 09:15 87 02/08/19 06:00 18 02/08/19 04:00 99.5 99.5 General: Alert Lungs: Clear Cardiovascular: S1, S2 Abdomen: Soft, Non-tender Extremities: No Edema Labs Laboratory Tests Test 02/08/19 04:30 White Blood Count 10.8 x10^3/uL (4.0-11.0) Red Blood Count 3.97 x10^6/uL (4.30-5.70) Hemoglobin 12.2 g/dL (13.0-17.5) Hematocrit 37.4 % (39.0-53.0) Mean Corpuscular Volume 94 fL (79-100) Mean Corpuscular Hemoglobin 31 pg (25-35) Mean Corpuscular Hemoglobin Concent 33 g/dL (31-37) Red Cell Distribution Width 15.3 % (11.5-14.5) Platelet Count 115 x10^3/uL (140-400) Neutrophils (%) (Auto) 78 % (31-73) Lymphocytes (%) (Auto) 12 % (24-48) Monocytes (%) (Auto) 10 % (0-9) Eosinophils (%) (Auto) 0 % (0-3) Basophils (%) (Auto) 0 % (0-3) Neutrophils # (Auto) 8.4 x10^3/uL (1.8-7.7) Lymphocytes # (Auto) 1.3 x10^3/uL (1.0-4.8) Monocytes # (Auto) 1.1 x10^3/uL (0.0-1.1) Eosinophils # (Auto) 0.0 x10^3/uL (0.0-0.7) Basophils # (Auto) 0.0 x10^3/uL (0.0-0.2) Prothrombin Time 15.4 SEC (11.7-14.0) Prothromb Time International Ratio 1.3 (0.8-1.1) Sodium Level 144 mmol/L (136-145) Potassium Level 3.7 mmol/L (3.5-5.1) Chloride Level 105 mmol/L (98-107) Carbon Dioxide Level 32 mmol/L (21-32) Anion Gap 7 (6-14) Blood Urea Nitrogen 19 mg/dL (8-26) Creatinine 0.7 mg/dL (0.7-1.3) Estimated GFR (Cockcroft-Gault) 112.5 BUN/Creatinine Ratio 27 (6-20) Glucose Level 94 mg/dL (70-99) Calcium Level 8.6 mg/dL (8.5-10.1) Total Bilirubin 0.7 mg/dL (0.2-1.0) Aspartate Amino Transf (AST/SGOT) 17 U/L (15-37) Alanine Aminotransferase (ALT/SGPT) 9 U/L (16-63) Alkaline Phosphatase 53 U/L (46-116) Total Protein 6.8 g/dL (6.4-8.2) Albumin 2.4 g/dL (3.4-5.0) Albumin/Globulin Ratio 0.5 (1.0-1.7) Procalcitonin 34.61 ng/mL (0.00-0.10) Laboratory Tests Test 02/08/19 04:30 White Blood Count 10.8 x10^3/uL (4.0-11.0) Red Blood Count 3.97 x10^6/uL (4.30-5.70) Hemoglobin 12.2 g/dL (13.0-17.5) Hematocrit 37.4 % (39.0-53.0) Mean Corpuscular Volume 94 fL (79-100) Mean Corpuscular Hemoglobin 31 pg (25-35) Mean Corpuscular Hemoglobin Concent 33 g/dL (31-37) Red Cell Distribution Width 15.3 % (11.5-14.5) Platelet Count 115 x10^3/uL (140-400) Neutrophils (%) (Auto) 78 % (31-73) Lymphocytes (%) (Auto) 12 % (24-48) Monocytes (%) (Auto) 10 % (0-9) Eosinophils (%) (Auto) 0 % (0-3) Basophils (%) (Auto) 0 % (0-3) Neutrophils # (Auto) 8.4 x10^3/uL (1.8-7.7) Lymphocytes # (Auto) 1.3 x10^3/uL (1.0-4.8) Monocytes # (Auto) 1.1 x10^3/uL (0.0-1.1) Eosinophils # (Auto) 0.0 x10^3/uL (0.0-0.7) Basophils # (Auto) 0.0 x10^3/uL (0.0-0.2) Prothrombin Time 15.4 SEC (11.7-14.0) Prothromb Time International Ratio 1.3 (0.8-1.1) Sodium Level 144 mmol/L (136-145) Potassium Level 3.7 mmol/L (3.5-5.1) Chloride Level 105 mmol/L (98-107) Carbon Dioxide Level 32 mmol/L (21-32) Anion Gap 7 (6-14) Blood Urea Nitrogen 19 mg/dL (8-26) Creatinine 0.7 mg/dL (0.7-1.3) Estimated GFR (Cockcroft-Gault) 112.5 BUN/Creatinine Ratio 27 (6-20) Glucose Level 94 mg/dL (70-99) Calcium Level 8.6 mg/dL (8.5-10.1) Total Bilirubin 0.7 mg/dL (0.2-1.0) Aspartate Amino Transf (AST/SGOT) 17 U/L (15-37) Alanine Aminotransferase (ALT/SGPT) 9 U/L (16-63) Alkaline Phosphatase 53 U/L (46-116) Total Protein 6.8 g/dL (6.4-8.2) Albumin 2.4 g/dL (3.4-5.0) Albumin/Globulin Ratio 0.5 (1.0-1.7) Procalcitonin 34.61 ng/mL (0.00-0.10) Medications Active Scripts Medications Dose Route/Sig Max Daily Dose Days Date Category Rosuvastatin Calcium 40 Mg Tablet 40 Mg PO HS 02/07/19 Reported Zolpidem Tartrate 10 Mg Tablet 1 Tab PO QHS 07/10/16 Reported Zoloft (Sertraline Hcl) 100 Mg Tablet 1 Tab PO DAILY 07/10/16 Reported Potassium Chloride 10 Meq Capsule.er 10 Meq PO DAILY 07/10/16 Reported Miralax (Polyethylene Glycol 3350) 17 Gm Powd.pack 1 Packet PO DAILY 07/10/16 Reported Lorazepam 1 Mg Tablet 1 Tab PO BID 07/10/16 Reported Levothyroxine Sodium 175 Mcg Tablet 1 Tab PO DAILY 07/10/16 Reported Furosemide 20 Mg Tablet 1 Tab PO DAILY 07/10/16 Reported Carvedilol (Carvedilol) 12.5 Mg Tablet 1 Tab PO BID 07/10/16 Reported Amlodipine Besylate 10 Mg Tablet 10 Mg PO DAILY 07/10/16 Reported Impression . DICTATED RESP FAILURE SEC TO ASPIRATION UMANG SKINNER MD Feb 08, 2019 12:56
--- NOTE | 2019-02-08 17:16 | NUR ---
Patient care assumed at 1600 from [place] CARDOSO. BP running low, 1700 BP 92/48 p 70. Carvedilol held. See emar.
[2019-02-08] MEDS: ENOXAPARIN 40 MG/0.4 ML SYRINGE. SQ SCH (20:52)
[2019-02-08] MEDS: ATORVASTATIN CALCIUM 40 MG TABLET. PO SCH (20:53)
[2019-02-08] MEDS: ZOLPIDEM 5 MG TABLET. PO PRN (22:07)
[2019-02-09] VITALS (23 sets, daily range): BP systolic 81–122; BP diastolic 41–69
[2019-02-09] MEDS: PIPERACILLIN/TAZOBACTAM 4.5 GM in IV NORMAL SALINE 100ML 100 ML IV SCH ×5 (00:04→23:37)
--- NOTE | 2019-02-09 01:03 | CONS ---
DATE OF CONSULTATION: 02/08/2019 ATTENDING PHYSICIAN: Dr. Pierson. REASON FOR CONSULTATION: The patient seen in pulmonary consultation at the request of Dr. Pierson for acute respiratory failure requiring noninvasive ventilation. HISTORY OF PRESENT ILLNESS: The patient is a 68-year-old male that has a history of prior tongue carcinoma, underwent radiation about 4-5 years ago, has an indwelling PEG tube. He is n.p.o. He bolused himself and then laid down flat. He had respiratory distress. O2 saturation dropped. He is normally on 2 liters of oxygen supplementation. He was initially admitted to [facility]. Chest x-ray revealed a right lower lobe infiltrate. The patient was transferred to the intensive care unit at [place] and placed on oxygen supplementation, initially requiring 10 to 14 liters. He does have a history of ANAND. He was placed on CPAP overnight. He reports feeling better. He does have a cough productive of discolored sputum. No hemoptysis. No chest pain. No pressure. PAST MEDICAL HISTORY: Remarkable for tongue cancer status post radiation and chemo approximately 8 to 9 years ago. There is a history of COPD tobacco dependent, quit 40 years ago, status post PEG tube placement. He has a history of depression. He has a history of hyperlipidemia, hypertension, anxiety and depression. He has had peripheral vascular disease, previous myocardial infarction and history of hypothyroidism. PAST SURGICAL HISTORY: Status post PEG tube placement. ALLERGIES: CIPROFLOXACIN AND CODEINE. REVIEW OF SYSTEMS: As indicated above, otherwise, a 10-point system was reviewed and negative. PHYSICAL EXAMINATION: HEENT: Eyes, no change in visual acuity. HEENT: As indicated above. PULMONARY: As indicated above. GASTROINTESTINAL: Status post PEG. He has been losing some weight. GENITOURINARY: No dysuria or frequency. MUSCULOSKELETAL: No localized muscle aches or joint pains. SKIN: No new skin rashes. NEUROLOGIC: No headaches, diplopia or blurred vision. MEDICATIONS: List from home was reviewed. Medication list from the hospital was likewise reviewed. At home the patient was utilizing p.r.n. nebulized treatments. PHYSICAL EXAMINATION: VITAL SIGNS: Stable, currently on 15 liters of oxygen supplementation. HEENT: Eyes, the sclerae were nonicteric. NECK: Jugular venous distention was not elevated. No lymphadenopathy. CHEST: Full expansion. LUNGS: Bilateral rhonchi with wheezes. CARDIOVASCULAR: Regular rate and rhythm with S1, S2; no S3. ABDOMEN: PEG in place. EXTREMITIES: 1+ edema, no cyanosis. NEUROLOGICAL: The patient was awake, alert, following command. A detailed neuro exam was not performed. SKIN: Revealed no new skin lesions. LABORATORY DATA: White count was noted. Hemoglobin and hematocrit were noted. Electrolytes were noted. BUN and creatinine were normal. Albumin was low at 2.4. INR was 1.3. IMPRESSION: 1. Acute on chronic hypoxemic respiratory failure. 2. Acute aspiration pneumonia. 3. Abnormal x-ray compatible with aspiration pneumonia. 4. History of tongue cancer, status post chemoradiation approximately 8 years ago. 5. Coronary artery disease with previous normal ejection fraction. 6. Anxiety and depression. 7. Underlying COPD. 8. Status post PEG tube placement. 9. Severe protein malnutrition, present upon admission. 10. Obstructive sleep apnea. PLAN: 1. We will cover for aspiration pneumonia in addition to possible gram-positive organisms. 2. Continue home medications. 3. Consult dietitian. 4. DVT and GI prophylaxis. 5. Noted that the patient has had previous CT of the chest dated 10/2018 revealing no evidence of lung masses. 6. The above was discussed with the . Total cumulative critical care time of 45 minutes reviewing the current documentation, labs, imaging studies and formulating the plan. 7. We will continue CPAP each day at bedtime for obstructive sleep apnea. I do appreciate the privilege in sharing in the patient's care. UMANG HOYT MD DR: JEFFY/bronwyn JOB#: [id number] / [id number]
[2019-02-09] MEDS: LEVOTHYROXINE 175 MCG TABLET PO SCH (06:19)
--- NOTE | 2019-02-09 06:42 | NUR ---
Rested well overnight. Several times, pt removed BiPAP mask on own. O2 sat immediately dropped to <80%. Reminded pt of need to wear and assisted pt to replace. At 0615, pt removed BiPap and stated he would use HFNC for the day. Replaced at 14 lpm to maintain SaO2 92%.
[2019-02-09] MEDS: PANTOPRAZOLE 40 MG TABLET.DR. PO SCH (07:30)
[2019-02-09 08:08] LABS: CREATININE 0.6 mg/dL (0.7-1.3); GFR 134.4
[2019-02-09 08:19] LABS: VANC TR 13.5 mcg/mL (10.0-20.0)
[2019-02-09] MEDS: IPRATRPIUM/ALBUTEROL 0.5/2.5MG 3 ML NEBU. NEB SCH ×4 (08:21→19:26)
[2019-02-09] MEDS: SERTRALINE 50 MG TABLET. PO SCH (08:28)
[2019-02-09] MEDS: POLYETHYLENE GLYCOL 3350 17 GM PACKET. PO SCH (08:28)
[2019-02-09] MEDS: amLODIPine BESYLATE 10 MG TABLET PO SCH (08:28)
[2019-02-09] MEDS: FUROSEMIDE 20 MG TABLET PO SCH (08:28)
[2019-02-09] MEDS: LORazepam 1 MG TABLET PO SCH (08:28)
[2019-02-09] MEDS: CARVEDILOL 12.5 MG TABLET. PO SCH ×2 (08:29→18:38)
[2019-02-09] MEDS: POTASSIUM BICARB 20 MEQ EFFERVESCENT TABLET. PO SCH (08:29)
[2019-02-09] MEDS: VANCOMYCIN 1.25 GM in IV NORMAL SALINE 250ML 250 ML IV SCH (09:21)
--- NOTE | 2019-02-09 09:59 | PDOC ---
PULMONARY PROGRESS NOTES Subjective PT SITTING IN CHAIR LESS SOA LESS COUGH Vitals Vital Signs Date Time Temp Pulse Resp B/P (MAP) Pulse Ox O2 Delivery O2 Flow Rate FiO2 02/09/19 09:26 69 26 81/41 (54) 96 High Flow Nasal Cannula 14.0 02/09/19 07:35 97.6 97.6 ROS: No Nausea, No Chest Pain, No Abdominal Pain, No Increase Cough General: Alert HEENT: Other (NO JVD) Lungs: Crackles Cardiovascular: S1, S2 Abdomen: Soft, Non-tender Neuro Exam: Alert Extremities: No Edema Skin: Warm Labs Laboratory Tests Test 02/08/19 04:30 02/09/19 07:15 White Blood Count 10.8 x10^3/uL (4.0-11.0) Red Blood Count 3.97 x10^6/uL (4.30-5.70) Hemoglobin 12.2 g/dL (13.0-17.5) Hematocrit 37.4 % (39.0-53.0) Mean Corpuscular Volume 94 fL (79-100) Mean Corpuscular Hemoglobin 31 pg (25-35) Mean Corpuscular Hemoglobin Concent 33 g/dL (31-37) Red Cell Distribution Width 15.3 % (11.5-14.5) Platelet Count 115 x10^3/uL (140-400) Neutrophils (%) (Auto) 78 % (31-73) Lymphocytes (%) (Auto) 12 % (24-48) Monocytes (%) (Auto) 10 % (0-9) Eosinophils (%) (Auto) 0 % (0-3) Basophils (%) (Auto) 0 % (0-3) Neutrophils # (Auto) 8.4 x10^3/uL (1.8-7.7) Lymphocytes # (Auto) 1.3 x10^3/uL (1.0-4.8) Monocytes # (Auto) 1.1 x10^3/uL (0.0-1.1) Eosinophils # (Auto) 0.0 x10^3/uL (0.0-0.7) Basophils # (Auto) 0.0 x10^3/uL (0.0-0.2) Prothrombin Time 15.4 SEC (11.7-14.0) Prothromb Time International Ratio 1.3 (0.8-1.1) Sodium Level 144 mmol/L (136-145) Potassium Level 3.7 mmol/L (3.5-5.1) Chloride Level 105 mmol/L (98-107) Carbon Dioxide Level 32 mmol/L (21-32) Anion Gap 7 (6-14) Blood Urea Nitrogen 19 mg/dL (8-26) Creatinine 0.7 mg/dL (0.7-1.3) 0.6 mg/dL (0.7-1.3) Estimated GFR (Cockcroft-Gault) 112.5 134.4 BUN/Creatinine Ratio 27 (6-20) Glucose Level 94 mg/dL (70-99) Calcium Level 8.6 mg/dL (8.5-10.1) Total Bilirubin 0.7 mg/dL (0.2-1.0) Aspartate Amino Transf (AST/SGOT) 17 U/L (15-37) Alanine Aminotransferase (ALT/SGPT) 9 U/L (16-63) Alkaline Phosphatase 53 U/L (46-116) Total Protein 6.8 g/dL (6.4-8.2) Albumin 2.4 g/dL (3.4-5.0) Albumin/Globulin Ratio 0.5 (1.0-1.7) Procalcitonin 34.61 ng/mL (0.00-0.10) Vancomycin Level Trough 13.5 mcg/mL (10.0-20.0) Vancomycin Last Dose Date 02/08/19 Vancomycin Last Dose Time 1999 Laboratory Tests Test 02/09/19 07:15 Creatinine 0.6 mg/dL (0.7-1.3) Estimated GFR (Cockcroft-Gault) 134.4 Vancomycin Level Trough 13.5 mcg/mL (10.0-20.0) Vancomycin Last Dose Date 02/08/19 Vancomycin Last Dose Time 1999 Medications Active Scripts Medications Dose Route/Sig Max Daily Dose Days Date Category Rosuvastatin Calcium 40 Mg Tablet 40 Mg PO HS 02/07/19 Reported Zolpidem Tartrate 10 Mg Tablet 1 Tab PO QHS 07/10/16 Reported Zoloft (Sertraline Hcl) 100 Mg Tablet 1 Tab PO DAILY 07/10/16 Reported Potassium Chloride 10 Meq Capsule.er 10 Meq PO DAILY 07/10/16 Reported Miralax (Polyethylene Glycol 3350) 17 Gm Powd.pack 1 Packet PO DAILY 07/10/16 Reported Lorazepam 1 Mg Tablet 1 Tab PO BID 07/10/16 Reported Levothyroxine Sodium 175 Mcg Tablet 1 Tab PO DAILY 07/10/16 Reported Furosemide 20 Mg Tablet 1 Tab PO DAILY 07/10/16 Reported Carvedilol (Carvedilol) 12.5 Mg Tablet 1 Tab PO BID 07/10/16 Reported Amlodipine Besylate 10 Mg Tablet 10 Mg PO DAILY 07/10/16 Reported Impression . IMPRESSION: 1. Acute on chronic hypoxemic respiratory failure. 2. Acute aspiration pneumonia. 3. Abnormal x-ray compatible with aspiration pneumonia. 4. History of tongue cancer, status post chemoradiation approximately 8 years ago. 5. Coronary artery disease with previous normal ejection fraction. 6. Anxiety and depression. 7. Underlying COPD. 8. Status post PEG tube placement. 9. Severe protein malnutrition, present upon admission. 10. Obstructive sleep apnea. Plan . PRN BIPAP ANTIBX DVT ANG GI PROPH D/W CCT 30 MINUTE REVIEWING THE DATA/LABS/CXR AND FORMULATING A DIET PREVIOUS CT NO MASS WILL REPEAT CXR PT UP TO CHAIR IS UMANG HOYT MD Feb 09, 2019 09:59
[2019-02-09] MEDS: VANCOMYCIN PER PHARMACY MC PRN ×2 (10:00→10:03)
--- NOTE | 2019-02-09 10:05 | NUR ---
Pharmacy Vancomycin Dosing Note S: Consulted to monitor and dose vancomycin started 02/07/19. O: ESSENCE HOLT is a 68 year old M with Pneumonia Other Antibiotics: ZOSYN 4.5 GM Q6H LABS: Last BUN: 19 Last Creatinine: 0.6 Creatinine Clearance: 73 mL/min Last WBC: 10.8 Last Procalcitonin: 34.6 Tmax (past 24 hours): 99.8 Microbiology: - I/O: 2615/1900 Drug Levels: Last Trough level: 13.5 on 02/09/19 at 0715 Last dose given 02/08/19 at 1945 Vancomycin Dosing: Dosing Weight: Actual Target Trough: 15-20 A: Based on: trough P: 1. Increase Vancomycin to 1500 mg IV q12h starting with 02/09 pm dose 2. Follow up Trough level on 02/11/19 at 0830 3. Pharmacy will continue to monitor, follow and adjust therapy as needed. Nayely Osborne [facility], 02/09/19 0320
[2019-02-09] MEDS: LANSOPRAZOLE 30 MG TAB.RAP.DR FT SCH (11:09)
--- NOTE | 2019-02-09 11:20 | PDOC ---
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-strict nothing by mouth and does bolus tube feedings at home History of being intubated distant past Hypoxemic respiratory failure-on 2-3 L when necessary nasal cannula at home but now needing anywhere between 10-14 L to maintain 90-92% sats Full code Allergies to codeine and Cipro Relative hypotension-he claims he runs low History of Present Illness History of Present Illness Sleepy today Did get ativan 1 mg PO BID last night NO sleep last night per pt asks/concerns about the lungs CXR interval ordered today - read pending On bolus tFs PLAn: dc scheduled ativan MAke ativan po prn 0.25mg from 1mg Also dec fentanyl to 25mgs from 50 mgs (though he did not get any dose) IF drowsiness persists, might need to dec his sertraline dose to 50 qhs from 100po qhs Cont bolus feeds Full code ff up interval cxr today HIgh asp risk, keep upright when feeding Cont broad spectrum abx Ok to transfer to med monitored bed Dw and ICU R N Vitals Vitals Vital Signs Date Time Temp Pulse Resp B/P (MAP) Pulse Ox O2 Delivery O2 Flow Rate FiO2 02/09/19 10:21 64 28 95/48 (64) 93 High Flow Nasal Cannula 14.0 02/09/19 07:35 97.6 97.6 Physical Exam General: Alert, Oriented X3, Cooperative, No acute distress Heart: Regular rate, Normal S1, Normal S2 Lungs: Crackles Abdomen: Normal bowel sounds, Soft, No tenderness, No hepatosplenomegaly, No masses Extremities: No clubbing, No cyanosis, No edema, Normal pulses, No tenderness/swelling Skin: No rashes, No breakdown, No significant lesion Labs LABS Laboratory Tests Test 02/09/19 07:15 Creatinine 0.6 mg/dL (0.7-1.3) Estimated GFR (Cockcroft-Gault) 134.4 Vancomycin Level Trough 13.5 mcg/mL (10.0-20.0) Vancomycin Last Dose Date 02/08/19 Vancomycin Last Dose Time 1999 Review of Systems Review of Systems sleepy, weak, no soa, no cp, no fevers, no abd pain, no n.v.d Assessment and Plan Assessmemt and Plan Problems Medical Problems: (1) Acute hypoxemic respiratory failure Status: Acute (2) Aspiration pneumonia Status: Acute Comment Review of Relevant I have reviewed the following items chloe (where applicable) has been applied. Labs Laboratory Tests Test 02/08/19 04:30 02/09/19 07:15 White Blood Count 10.8 x10^3/uL (4.0-11.0) Red Blood Count 3.97 x10^6/uL (4.30-5.70) Hemoglobin 12.2 g/dL (13.0-17.5) Hematocrit 37.4 % (39.0-53.0) Mean Corpuscular Volume 94 fL (79-100) Mean Corpuscular Hemoglobin 31 pg (25-35) Mean Corpuscular Hemoglobin Concent 33 g/dL (31-37) Red Cell Distribution Width 15.3 % (11.5-14.5) Platelet Count 115 x10^3/uL (140-400) Neutrophils (%) (Auto) 78 % (31-73) Lymphocytes (%) (Auto) 12 % (24-48) Monocytes (%) (Auto) 10 % (0-9) Eosinophils (%) (Auto) 0 % (0-3) Basophils (%) (Auto) 0 % (0-3) Neutrophils # (Auto) 8.4 x10^3/uL (1.8-7.7) Lymphocytes # (Auto) 1.3 x10^3/uL (1.0-4.8) Monocytes # (Auto) 1.1 x10^3/uL (0.0-1.1) Eosinophils # (Auto) 0.0 x10^3/uL (0.0-0.7) Basophils # (Auto) 0.0 x10^3/uL (0.0-0.2) Prothrombin Time 15.4 SEC (11.7-14.0) Prothromb Time International Ratio 1.3 (0.8-1.1) Sodium Level 144 mmol/L (136-145) Potassium Level 3.7 mmol/L (3.5-5.1) Chloride Level 105 mmol/L (98-107) Carbon Dioxide Level 32 mmol/L (21-32) Anion Gap 7 (6-14) Blood Urea Nitrogen 19 mg/dL (8-26) Creatinine 0.7 mg/dL (0.7-1.3) 0.6 mg/dL (0.7-1.3) Estimated GFR (Cockcroft-Gault) 112.5 134.4 BUN/Creatinine Ratio 27 (6-20) Glucose Level 94 mg/dL (70-99) Calcium Level 8.6 mg/dL (8.5-10.1) Total Bilirubin 0.7 mg/dL (0.2-1.0) Aspartate Amino Transf (AST/SGOT) 17 U/L (15-37) Alanine Aminotransferase (ALT/SGPT) 9 U/L (16-63) Alkaline Phosphatase 53 U/L (46-116) Total Protein 6.8 g/dL (6.4-8.2) Albumin 2.4 g/dL (3.4-5.0) Albumin/Globulin Ratio 0.5 (1.0-1.7) Procalcitonin 34.61 ng/mL (0.00-0.10) Vancomycin Level Trough 13.5 mcg/mL (10.0-20.0) Vancomycin Last Dose Date 02/08/19 Vancomycin Last Dose Time 1999 Laboratory Tests Test 02/09/19 07:15 Creatinine 0.6 mg/dL (0.7-1.3) Estimated GFR (Cockcroft-Gault) 134.4 Vancomycin Level Trough 13.5 mcg/mL (10.0-20.0) Vancomycin Last Dose Date 02/08/19 Vancomycin Last Dose Time 1999 Medications Current Medications Acetaminophen (Tylenol) 650 mg PRN Q6HRS PRN PO Headaches, Temp > 101.5'; Start 02/07/19 at 18:00 Lorazepam (Ativan) 1 mg PRN Q6HRS PRN PO ANXIETY / AGITATION Last administered on 02/08/19at 13:55; Start 02/07/19 at 18:00 Ondansetron HCl (Zofran) 4 mg PRN Q6HRS PRN IV NAUSEA/VOMITING; Start 02/07/19 at 18:00 Calcium Carbonate/ Glycine (Tums) 500 mg PRN Q3HRS PRN PO HEARTBURN / GAS; Start 02/07/19 at 18:00 Zolpidem Tartrate (Ambien) 5 mg PRN QHS PRN PO INSOMNIA, MAY REPEAT IN 1HR Last administered on 02/08/19at 22:07; Start 02/07/19 at 18:00 Enoxaparin Sodium (Lovenox 40mg Syringe) 40 mg Q24H SQ Last administered on 02/08/19at 20:53; Start 02/07/19 at 21:00 Sodium Chloride (Normal Saline Flush) 3 ml QSHIFT PRN IV AFTER MEDS AND BLOOD DRAWS; Start 02/07/19 at 18:00 Fentanyl Citrate (Fentanyl 2ml Vial) 50 mcg PRN Q2HR PRN IV PAIN; Start 02/07/19 at 18:00 Tramadol HCl (Ultram) 50 mg PRN Q6HRS PRN PO MODERATE PAIN; Start 02/07/19 at 18:00 Pantoprazole Sodium (Protonix) 40 mg DAILYAC PO ; Start 02/08/19 at 07:30; Stop 02/09/19 at 10:09; Status DC Amlodipine Besylate (Norvasc) 10 mg DAILY PO Last administered on 02/09/19 08:29; Start 02/08/19 at 09:00 Aspirin (Children'S Aspirin) 81 mg DAILY PO ; Start 02/08/19 at 09:00; Stop 02/07/19 at 18:25; Status DC Carvedilol (Coreg) 12.5 mg BIDWMEALS PO Last administered on 02/09/19 08:29; Start 02/07/19 at 18:30 Ferrous Sulfate (Feosol) 325 mg DAILYWBKFT PO ; Start 02/08/19 at 08:00; Stop 02/07/19 at 18:25; Status DC Furosemide (Lasix) 20 mg DAILY PO Last administered on 02/09/19 08:29; Start 02/08/19 at 09:00 Levothyroxine Sodium (Synthroid) 175 mcg DAILY06 PO Last administered on 02/09/19 06:19; Start 02/08/19 at 06:00 Lorazepam (Ativan) 1 mg BID PO Last administered on 02/09/19 08:29; Start 02/07/19 at 21:00 Pilocarpine HCl (Salagen) 5 mg BID PO ; Start 02/07/19 at 21:00; Stop 02/07/19 at 18:36; Status DC Polyethylene Glycol (miraLAX PACKET) 17 gm DAILY PO Last administered on 02/09/19 08:29; Start 02/08/19 at 09:00 Potassium Chloride (Klor-Con) 10 meq DAILY PO Last administered on 02/08/19 09:15; Start 02/08/19 at 09:00; Stop 02/09/19 at 08:21; Status DC Non-Formulary Medication (Atorvastatin Calcium ) 1 tab DAILY PO ; Start 02/08/19 at 09:00; Status UNV Sertraline HCl (Zoloft) 100 mg DAILY PO Last administered on 02/09/19 08:29; Start 02/08/19 at 09:00 Vancomycin HCl (Vanco Per Pharmacy) 1 each PRN DAILY PRN MC SEE COMMENTS Last administered on 02/09/19 10:05; Start 02/07/19 at 18:00 Piperacillin Sod/ Tazobactam Sod (Zosyn Per Pharmacy) 1 each PRN DAILY PRN MC SEE COMMENTS; Start 02/07/19 at 18:00 Sodium Chloride 1,000 ml @ 100 mls/hr Q10H IV Last administered on 02/08/19at 06:24; Start 02/07/19 at 18:30; Stop 02/08/19 at 08:40; Status DC Atorvastatin Calcium (Lipitor) 80 mg QHS PO Last administered on 02/08/19 20:53; Start 02/07/19 at 21:00 Vancomycin HCl 2 gm/Sodium Chloride 500 ml @ 250 mls/hr 1X ONCE IV Last administered on 02/07/19 20:18; Start 02/07/19 at 20:00; Stop 02/07/19 at 21:59; Status DC Piperacillin Sod/ Tazobactam Sod 3.375 gm/Dextrose 50 ml @ 100 mls/hr 1X ONCE IV Last administered on 02/07/19 18:43; Start 02/07/19 at 18:30; Stop 02/07/19 at 18:59; Status DC Albuterol/ Ipratropium (Duoneb) 3 ml RTQID NEB Last administered on 02/09/19 08:21; Start 02/07/19 at 20:00 Piperacillin Sod/ Tazobactam Sod 4.5 gm/Sodium Chloride 100 ml @ 200 mls/hr Q6HRS IV Last administered on 02/09/19 06:19; Start 02/08/19 at 06:00 Vancomycin HCl 1.25 gm/Sodium Chloride 250 ml @ 167 mls/hr Q12H IV Last administered on 02/09/19at 09:21; Start 02/08/19 at 08:00; Stop 02/09/19 at 14:00 Vancomycin HCl (Vancomycin Trough Level) 1 each 1X ONCE MC ; Start 02/09/19 at 07:30; Stop 02/09/19 at 07:31; Status Cancel Potassium Bicarbonate (Potassium Effervescent Tablet) 10 meq DAILY PO Last administered on 02/09/19at 08:29; Start 02/09/19 at 09:00 Vancomycin HCl 1.5 gm/Sodium Chloride 500 ml @ 250 mls/hr Q12H IV ; Start 02/09/19 at 21:00 Vancomycin HCl (Vancomycin Trough Level) 1 each 1X ONCE MC ; Start 02/11/19 at 08:30; Stop 02/11/19 at 08:31 Lansoprazole (Prevacid) 30 mg DAILYAC FT Last administered on 02/09/19at 11:09; Start 02/09/19 at 10:30 Active Scripts Active Reported Rosuvastatin Calcium 40 Mg Tablet 40 Mg PO HS Zolpidem Tartrate 10 Mg Tablet 1 Tab PO QHS Zoloft (Sertraline Hcl) 100 Mg Tablet 1 Tab PO DAILY Potassium Chloride 10 Meq Capsule.er 10 Meq PO DAILY Miralax (Polyethylene Glycol 3350) 17 Gm Powd.pack 1 Packet PO DAILY Lorazepam 1 Mg Tablet 1 Tab PO BID Levothyroxine Sodium 175 Mcg Tablet 1 Tab PO DAILY Furosemide 20 Mg Tablet 1 Tab PO DAILY Carvedilol (Carvedilol) 12.5 Mg Tablet 1 Tab PO BID Amlodipine Besylate 10 Mg Tablet 10 Mg PO DAILY Vitals/I & O Vital Sign - Last 24 Hours 02/08/19 02/08/19 02/08/19 02/08/19 11:52 12:00 12:00 13:00 Temp 98.2 98.2 Pulse 80 72 Resp 24 22 B/P (MAP) 125/57 (79) 113/66 (82) Pulse Ox 92 93 93 O2 Delivery NonRebreather Mask Nasal Cannula Nasal Cannula NonRebreather Mask O2 Flow Rate 15.0 13.0 13.0 13.0 02/08/19 02/08/19 02/08/19 02/08/19 14:00 15:00 16:00 16:00 Temp 98.4 98.4 Pulse 73 60 72 Resp 24 22 20 B/P (MAP) 83/42 (56) 89/49 (62) 98/54 (69) Pulse Ox 92 92 92 O2 Delivery NonRebreather Mask Nasal Cannula Nasal Cannula Nasal Cannula O2 Flow Rate 13.0 13.0 13.0 13.0 02/08/19 02/08/19 02/08/19 02/08/19 16:20 17:00 17:15 18:00 Pulse 70 70 74 Resp 20 20 B/P (MAP) 92/48 (63) 92/48 93/51 (65) Pulse Ox 92 94 92 O2 Delivery High Flow Nasal Cannula Nasal Cannula Nasal Cannula O2 Flow Rate 13.0 13.0 13.0 02/08/19 02/08/19 02/08/19 02/08/19 19:00 19:50 20:00 20:00 Temp 98.8 98.8 Pulse 74 69 Resp 22 20 B/P (MAP) 91/45 (60) 89/46 (60) Pulse Ox 92 94 95 O2 Delivery Nasal Cannula High Flow Nasal Cannula Nasal Cannula High Flow Nasal Cannula O2 Flow Rate 13.0 13.0 12.0 02/08/19 02/08/19 02/08/19 02/08/19 21:00 22:00 23:00 23:19 Pulse 75 74 68 Resp 22 18 B/P (MAP) 90/46 (61) 106/53 (70) 90/52 (65) Pulse Ox 91 90 95 94 O2 Delivery High Flow Nasal Cannula Nasal Cannula BiPAP/CPAP BiPAP/CPAP O2 Flow Rate 12.0 12.0 02/09/19 02/09/19 02/09/19 02/09/19 00:00 00:00 00:00 01:00 Temp 98.8 98.8 Pulse 69 67 Resp 18 B/P (MAP) 107/66 (80) 101/55 (70) Pulse Ox 98 96 O2 Delivery BiPAP/CPAP Bi-pap BiPAP/CPAP O2 Flow Rate 12.0 02/09/19 02/09/19 02/09/19 02/09/19 01:47 02:00 03:00 03:11 Pulse 65 65 Resp 18 18 B/P (MAP) 99/49 (66) 105/53 (70) Pulse Ox 93 95 97 96 O2 Delivery BiPAP/CPAP BiPAP/CPAP BiPAP/CPAP BiPAP/CPAP 02/09/19 02/09/19 02/09/19 02/09/19 04:00 04:00 04:00 05:00 Temp 98.2 98.2 Pulse 65 62 Resp 18 18 B/P (MAP) 106/53 (70) 103/57 (72) Pulse Ox 93 94 O2 Delivery BiPAP/CPAP Bi-pap BiPAP/CPAP O2 Flow Rate 12.0 12.0 02/09/19 02/09/19 02/09/19 02/09/19 05:49 06:00 07:35 07:55 Temp 97.6 97.6 Pulse 79 80 Resp 22 28 B/P (MAP) 122/69 (86) 112/58 (76) Pulse Ox 96 85 90 O2 Delivery BiPAP/CPAP Nasal Cannula High Flow Nasal Cannula Nasal Cannula O2 Flow Rate 14.0 14.0 14.0 02/09/19 02/09/19 02/09/19 02/09/19 07:55 08:25 08:29 08:29 Pulse 80 80 B/P (MAP) 112/58 112/58 Pulse Ox 94 O2 Delivery High Flow Nasal Cannula O2 Flow Rate 14.0 14.0 02/09/19 02/09/19 02/09/19 08:35 09:26 10:21 Pulse 82 69 64 Resp 28 26 28 B/P (MAP) 120/59 (79) 81/41 (54) 95/48 (64) Pulse Ox 94 96 93 O2 Delivery High Flow Nasal Cannula High Flow Nasal Cannula High Flow Nasal Cannula O2 Flow Rate 14.0 14.0 14.0 Intake and Output 02/08/19 02/08/19 02/09/19 15:00 23:00 07:00 Intake Total 1195 ml 1080 ml 340 ml Output Total 1100 ml 200 ml 600 ml Balance 95 ml 880 ml -260 ml Nutrition Consultation Dietary Evaluation: Recommendations by RD: Increase Calorie Intake Comments: REC Jevity 1.5 bolus 8 cans/day, feed 4x/day (2 cans/feeding) w/min of 150 ml water flush w/each feeding Expected Outcomes/Goals: TF infusion to meet >75% est needs Malnutrition Findings: Weight Status: Appropriate MAYDA BROWNING MD Feb 09, 2019 11:20
[2019-02-09] MEDS ORDERED: LORazepam 1 MG TABLET PO PRN (11:30)
[2019-02-09] MEDS ORDERED: fentaNYL PF VIAL 100 MCG/2 ML VIAL IV PRN (11:30)
--- NOTE | 2019-02-09 12:01 | RAD ---
PORTABLE CHEST 1V History: Aspiration. Comparison: 02/07/2019 FINDINGS: Consolidation or infiltrate in the right lower lung and mid lung has worsened since the previous exam. There is also been worsening of infiltrate in the left lung base. No evidence of pneumothorax. Probable pleural effusion on the right is stable. Small left pleural effusion now seen. IMPRESSION: Worsening of bilateral infiltrates, right greater than left. Small pleural effusions. Electronically signed by: Tristian Perez MD (02/09/2019 11:58 AM) [facility]
[2019-02-09] MEDS: LORazepam 0.5 MG TABLET PO PRN (19:27)
--- NOTE | 2019-02-09 19:43 | NUR ---
Pt found with O2 sat 82-84%. HF NC removed and 100% NRB placed. Sat now at 88%. RT at bedside and will place BiPAP to maintain sat >90%.
--- NOTE | 2019-02-09 20:46 | NUR ---
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 Meds sent home with .
[2019-02-09] MEDS: ATORVASTATIN CALCIUM 40 MG TABLET. PO SCH (21:12)
[2019-02-09] MEDS: ENOXAPARIN 40 MG/0.4 ML SYRINGE. SQ SCH (21:13)
[2019-02-09] MEDS: VANCOMYCIN 1.5 GM in IV NORMAL SALINE 500ML BAG 500 ML IV SCH (21:14)
--- NOTE | 2019-02-09 21:21 | NUR ---
Dr Richardson given update regarding pt taking own medications. CT of head will be on hold until MD does rounds in am, per Dr Richardson.
[2019-02-10] VITALS (16 sets, daily range): BP systolic 93–127; BP diastolic 46–68
[2019-02-10 04:46] LABS: BASO % 0 % (0-3); EOS % 0 % (0-3); HEMATOCRIT 32.4 % (39.0-53.0); HEMOGLOBIN 10.7 g/dL (13.0-17.5); LYMPH # 0.8 x10^3/uL (1.0-4.8); LYMPH % 9 % (24-48); MEAN CORPUSCULAR HEMOGLOBIN 31 pg (25-35); MEAN CORPUSCULAR HGB CONC 33 g/dL (31-37); MEAN CORPUSCULAR VOLUME 93 fL (79-100); MONO # 0.9 x10^3/uL (0.0-1.1); MONO % 10 % (0-9); NEUT # 7.2 x10^3/uL (1.8-7.7); NEUT % 81 % (31-73); PLATELET COUNT 116 x10^3/uL (140-400); RED BLOOD COUNT 3.48 x10^6/uL (4.30-5.70); RED CELL DISTRIBUTION WIDTH 14.9 % (11.5-14.5); WHITE BLOOD COUNT 8.9 x10^3/uL (4.0-11.0)
[2019-02-10 06:09] LABS: CREATININE 0.6 mg/dL (0.7-1.3); GFR 134.4
[2019-02-10] MEDS: LEVOTHYROXINE 175 MCG TABLET PO SCH (06:14)
[2019-02-10] MEDS: PIPERACILLIN/TAZOBACTAM 4.5 GM in IV NORMAL SALINE 100ML 100 ML IV SCH ×4 (06:14→23:16)
[2019-02-10] MEDS: IPRATRPIUM/ALBUTEROL 0.5/2.5MG 3 ML NEBU. NEB SCH ×4 (08:09→21:25)
[2019-02-10] MEDS ORDERED: CONTRAST GIVEN. MC PRN ×2 (08:30→17:00)
[2019-02-10] MEDS ORDERED: IOHEXOL 300 MG/ML 100ML VIAL. IV ONE ×2 (08:30→17:00)
[2019-02-10] MEDS: amLODIPine BESYLATE 10 MG TABLET PO SCH (09:05)
[2019-02-10] MEDS: POTASSIUM BICARB 20 MEQ EFFERVESCENT TABLET. PO SCH (09:05)
[2019-02-10] MEDS: SERTRALINE 50 MG TABLET. PO SCH (09:05)
[2019-02-10] MEDS: FUROSEMIDE 20 MG TABLET PO SCH (09:06)
[2019-02-10] MEDS: CARVEDILOL 12.5 MG TABLET. PO SCH ×2 (09:06→17:01)
[2019-02-10] MEDS: LANSOPRAZOLE 30 MG TAB.RAP.DR FT SCH (09:06)
[2019-02-10] MEDS: VANCOMYCIN 1.5 GM in IV NORMAL SALINE 500ML BAG 500 ML IV SCH ×2 (09:07→20:41)
--- NOTE | 2019-02-10 09:14 | PDOC ---
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-strict nothing by mouth and does bolus tube feedings at home History of being intubated distant past Hypoxemic respiratory failure-on 2-3 L when necessary nasal cannula at home but now needing anywhere between 10-14 L to maintain 90-92% sats Full code Allergies to codeine and Cipro Relative hypotension-he claims he runs low History of Present Illness History of Present Illness more awake - i cut back on some sedating meds yesterday CXR worse, so i ordered CT chest - read pending NO fevers - ID consulted too ON broad spectrum abx by pulmo since admission a bit emotional today, accompanied by another family member VS good, no fevers Bolus feeds on going PLAn: Await CT chest MAy transfer out of icu Chest tube still on left - possibly might be able to dc today O2 support, BIPAP vs VM Vitals Vitals Vital Signs Date Time Temp Pulse Resp B/P (MAP) Pulse Ox O2 Delivery O2 Flow Rate FiO2 02/10/19 08:09 97 BiPAP/CPAP 02/10/19 07:22 98.3 65 18 93/53 (66) 98.3 02/10/19 04:00 15.0 Physical Exam General: Alert, Oriented X3, Cooperative, No acute distress Heart: Regular rate, Normal S1, Normal S2 Lungs: Crackles Abdomen: Normal bowel sounds, Soft, No tenderness, No hepatosplenomegaly, No masses Extremities: No clubbing, No cyanosis, No edema, Normal pulses, No tenderness/swelling Skin: No rashes, No breakdown, No significant lesion Labs LABS Laboratory Tests Test 02/10/19 04:30 White Blood Count 8.9 x10^3/uL (4.0-11.0) Red Blood Count 3.48 x10^6/uL (4.30-5.70) Hemoglobin 10.7 g/dL (13.0-17.5) Hematocrit 32.4 % (39.0-53.0) Mean Corpuscular Volume 93 fL (79-100) Mean Corpuscular Hemoglobin 31 pg (25-35) Mean Corpuscular Hemoglobin Concent 33 g/dL (31-37) Red Cell Distribution Width 14.9 % (11.5-14.5) Platelet Count 116 x10^3/uL (140-400) Neutrophils (%) (Auto) 81 % (31-73) Lymphocytes (%) (Auto) 9 % (24-48) Monocytes (%) (Auto) 10 % (0-9) Eosinophils (%) (Auto) 0 % (0-3) Basophils (%) (Auto) 0 % (0-3) Neutrophils # (Auto) 7.2 x10^3/uL (1.8-7.7) Lymphocytes # (Auto) 0.8 x10^3/uL (1.0-4.8) Monocytes # (Auto) 0.9 x10^3/uL (0.0-1.1) Eosinophils # (Auto) 0.0 x10^3/uL (0.0-0.7) Basophils # (Auto) 0.0 x10^3/uL (0.0-0.2) Creatinine 0.6 mg/dL (0.7-1.3) Estimated GFR (Cockcroft-Gault) 134.4 MF-Rip-B-Type Natriuretic Peptide 1890 pg/mL (0-124) Procalcitonin 12.07 ng/mL (0.00-0.10) Review of Systems Review of Systems weak, soa, phlegm , some left sided rib CP (allergy to codeine), no nv,.d,abd pain Assessment and Plan Assessmemt and Plan Problems Medical Problems: (1) Acute hypoxemic respiratory failure Status: Acute (2) Aspiration pneumonia Status: Acute Comment Review of Relevant I have reviewed the following items chloe (where applicable) has been applied. Labs Laboratory Tests Test 02/09/19 07:15 02/10/19 04:30 Creatinine 0.6 mg/dL (0.7-1.3) 0.6 mg/dL (0.7-1.3) Estimated GFR (Cockcroft-Gault) 134.4 134.4 Procalcitonin 18.15 ng/mL (0.00-0.10) 12.07 ng/mL (0.00-0.10) Vancomycin Level Trough 13.5 mcg/mL (10.0-20.0) Vancomycin Last Dose Date 02/08/19 Vancomycin Last Dose Time 1999 White Blood Count 8.9 x10^3/uL (4.0-11.0) Red Blood Count 3.48 x10^6/uL (4.30-5.70) Hemoglobin 10.7 g/dL (13.0-17.5) Hematocrit 32.4 % (39.0-53.0) Mean Corpuscular Volume 93 fL (79-100) Mean Corpuscular Hemoglobin 31 pg (25-35) Mean Corpuscular Hemoglobin Concent 33 g/dL (31-37) Red Cell Distribution Width 14.9 % (11.5-14.5) Platelet Count 116 x10^3/uL (140-400) Neutrophils (%) (Auto) 81 % (31-73) Lymphocytes (%) (Auto) 9 % (24-48) Monocytes (%) (Auto) 10 % (0-9) Eosinophils (%) (Auto) 0 % (0-3) Basophils (%) (Auto) 0 % (0-3) Neutrophils # (Auto) 7.2 x10^3/uL (1.8-7.7) Lymphocytes # (Auto) 0.8 x10^3/uL (1.0-4.8) Monocytes # (Auto) 0.9 x10^3/uL (0.0-1.1) Eosinophils # (Auto) 0.0 x10^3/uL (0.0-0.7) Basophils # (Auto) 0.0 x10^3/uL (0.0-0.2) GJ-Clf-B-Type Natriuretic Peptide 1890 pg/mL (0-124) Laboratory Tests Test 02/10/19 04:30 White Blood Count 8.9 x10^3/uL (4.0-11.0) Red Blood Count 3.48 x10^6/uL (4.30-5.70) Hemoglobin 10.7 g/dL (13.0-17.5) Hematocrit 32.4 % (39.0-53.0) Mean Corpuscular Volume 93 fL (79-100) Mean Corpuscular Hemoglobin 31 pg (25-35) Mean Corpuscular Hemoglobin Concent 33 g/dL (31-37) Red Cell Distribution Width 14.9 % (11.5-14.5) Platelet Count 116 x10^3/uL (140-400) Neutrophils (%) (Auto) 81 % (31-73) Lymphocytes (%) (Auto) 9 % (24-48) Monocytes (%) (Auto) 10 % (0-9) Eosinophils (%) (Auto) 0 % (0-3) Basophils (%) (Auto) 0 % (0-3) Neutrophils # (Auto) 7.2 x10^3/uL (1.8-7.7) Lymphocytes # (Auto) 0.8 x10^3/uL (1.0-4.8) Monocytes # (Auto) 0.9 x10^3/uL (0.0-1.1) Eosinophils # (Auto) 0.0 x10^3/uL (0.0-0.7) Basophils # (Auto) 0.0 x10^3/uL (0.0-0.2) Creatinine 0.6 mg/dL (0.7-1.3) Estimated GFR (Cockcroft-Gault) 134.4 UG-Ucr-I-Type Natriuretic Peptide 1890 pg/mL (0-124) Procalcitonin 12.07 ng/mL (0.00-0.10) Medications Current Medications Acetaminophen (Tylenol) 650 mg PRN Q6HRS PRN PO Headaches, Temp > 101.5' Last administered on 02/10/19at 01:19; Start 02/07/19 at 18:00 Lorazepam (Ativan) 1 mg PRN Q6HRS PRN PO ANXIETY / AGITATION Last administered on 02/08/19at 13:55; Start 02/07/19 at 18:00; Stop 02/09/19 at 11:17; Status DC Ondansetron HCl (Zofran) 4 mg PRN Q6HRS PRN IV NAUSEA/VOMITING; Start 02/07/19 at 18:00 Calcium Carbonate/ Glycine (Tums) 500 mg PRN Q3HRS PRN PO HEARTBURN / GAS; St art 02/07/19 at 18:00 Zolpidem Tartrate (Ambien) 5 mg PRN QHS PRN PO INSOMNIA, MAY REPEAT IN 1HR Last administered on 02/08/19at 22:07; Start 02/07/19 at 18:00 Enoxaparin Sodium (Lovenox 40mg Syringe) 40 mg Q24H SQ Last administered on 02/09/19at 21:14; Start 02/07/19 at 21:00 Sodium Chloride (Normal Saline Flush) 3 ml QSHIFT PRN IV AFTER MEDS AND BLOOD DRAWS; Start 02/07/19 at 18:00 Fentanyl Citrate (Fentanyl 2ml Vial) 50 mcg PRN Q2HR PRN IV PAIN; Start 02/07/19 at 18:00; Stop 02/09/19 at 11:17; Status DC Tramadol HCl (Ultram) 50 mg PRN Q6HRS PRN PO MODERATE PAIN; Start 02/07/19 at 18:00 Pantoprazole Sodium (Protonix) 40 mg DAILYAC PO ; Start 02/08/19 at 07:30; Stop 02/09/19 at 10:09; Status DC Amlodipine Besylate (Norvasc) 10 mg DAILY PO Last administered on 02/09/19at 08:29; Start 02/08/19 at 09:00 Aspirin (Children'S Aspirin) 81 mg DAILY PO ; Start 02/08/19 at 09:00; Stop at 18:25; Status DC Carvedilol (Coreg) 12.5 mg BIDWMEALS PO Last administered on 02/09/19at 18:41; Start 02/07/19 at 18:30 Ferrous Sulfate (Feosol) 325 mg DAILYWBKFT PO ; Start 02/08/19 at 08:00; Stop 02/07/19 at 18:25; Status DC Furosemide (Lasix) 20 mg DAILY PO Last administered on 02/09/19at 08:29; Start 02/08/19 at 09:00 Levothyroxine Sodium (Synthroid) 175 mcg DAILY06 PO Last administered on 02/10/19at 06:14; Start 02/08/19 at 06:00 Lorazepam (Ativan) 1 mg BID PO Last administered on 02/09/19at 08:29; Start 02/07/19 at 21:00; Stop 02/09/19 at 11:18; Status DC Pilocarpine HCl (Salagen) 5 mg BID PO ; Start 02/07/19 at 21:00; Stop 02/07/19 at 18:36; Status DC Polyethylene Glycol (miraLAX PACKET) 17 gm DAILY PO Last administered on 02/09/19at 08:29; Start 02/08/19 at 09:00 Potassium Chloride (Klor-Con) 10 meq DAILY PO Last administered on 02/08/19 09:15; Start 02/08/19 at 09:00; Stop 02/09/19 at 08:21; Status DC Non-Formulary Medication (Atorvastatin Calcium ) 1 tab DAILY PO ; Start 02/08/19 at 09:00; Status UNV Sertraline HCl (Zoloft) 100 mg DAILY PO Last administered on 02/09/19 08:29; Start 02/08/19 at 09:00 Vancomycin HCl (Vanco Per Pharmacy) 1 each PRN DAILY PRN MC SEE COMMENTS Last administered on 02/09/19at 10:05; Start 02/07/19 at 18:00 Piperacillin Sod/ Tazobactam Sod (Zosyn Per Pharmacy) 1 each PRN DAILY PRN MC SEE COMMENTS; Start 02/07/19 at 18:00 Sodium Chloride 1,000 ml @ 100 mls/hr Q10H IV Last administered on 02/08/19 06:24; Start 02/07/19 at 18:30; Stop 02/08/19 at 08:40; Status DC Atorvastatin Calcium (Lipitor) 80 mg QHS PO Last administered on 02/09/19 21:14; Start 02/07/19 at 21:00 Vancomycin HCl 2 gm/Sodium Chloride 500 ml @ 250 mls/hr 1X ONCE IV Last administered on 02/07/19 20:18; Start 02/07/19 at 20:00; Stop 02/07/19 at 21:59; Status DC Piperacillin Sod/ Tazobactam Sod 3.375 gm/Dextrose 50 ml @ 100 mls/hr 1X ONCE IV Last administered on 02/07/19at 18:43; Start 02/07/19 at 18:30; Stop 02/07/19 at 18:59; Status DC Albuterol/ Ipratropium (Duoneb) 3 ml RTQID NEB Last administered on 02/10/19at 08:09; Start 02/07/19 at 20:00 Piperacillin Sod/ Tazobactam Sod 4.5 gm/Sodium Chloride 100 ml @ 200 mls/hr Q6HRS IV Last administered on 02/10/19 06:14; Start 02/08/19 at 06:00 Vancomycin HCl 1.25 gm/Sodium Chloride 250 ml @ 167 mls/hr Q12H IV Last administered on 02/09/19at 09:21; Start 02/08/19 at 08:00; Stop 02/09/19 at 14:00; Status DC Vancomycin HCl (Vancomycin Trough Level) 1 each 1X ONCE MC ; Start 02/09/19 at 07:30; Stop 02/09/19 at 07:31; Status Cancel Potassium Bicarbonate (Potassium Effervescent Tablet) 10 meq DAILY PO Last administered on 02/09/19at 08:29; Start 02/09/19 at 09:00 Vancomycin HCl 1.5 gm/Sodium Chloride 500 ml @ 250 mls/hr Q12H IV Last administered on 02/09/19at 21:14; Start 02/09/19 at 21:00 Vancomycin HCl (Vancomycin Trough Level) 1 each 1X ONCE MC ; Start 02/11/19 at 08:30; Stop 02/11/19 at 08:31 Lansoprazole (Prevacid) 30 mg DAILYAC FT Last administered on 02/09/19at 11:09; Start 02/09/19 at 10:30 Fentanyl Citrate (Fentanyl 2ml Vial) 25 mcg PRN Q2HR PRN IV PAIN; Start 02/09/19 at 11:30 Lorazepam (Ativan) 0.25 mg PRN Q6HRS PRN PO ANXIETY / AGITATION; Start 02/09/19 at 11:30; Stop 02/09/19 at 11:22; Status DC Lorazepam (Ativan) 0.25 mg PRN Q6HRS PRN PO ANXIETY / AGITATION Last administered on 02/09/19at 19:27; Start 02/09/19 at 11:30 Iohexol (Omnipaque 300 Mg/ml) 75 ml 1X ONCE IV ; Start 02/10/19 at 08:30; Stop 02/10/19 at 08:31; Status DC Info (CONTRAST GIVEN -- Rx MONITORING) 1 each PRN DAILY PRN MC SEE COMMENTS; Start 02/10/19 at 08:30; Stop 02/12/19 at 08:29 Active Scripts Active Reported Rosuvastatin Calcium 40 Mg Tablet 40 Mg PO HS Zolpidem Tartrate 10 Mg Tablet 1 Tab PO QHS Zoloft (Sertraline Hcl) 100 Mg Tablet 1 Tab PO DAILY Potassium Chloride 10 Meq Capsule.er 10 Meq PO DAILY Miralax (Polyethylene Glycol 3350) 17 Gm Powd.pack 1 Packet PO DAILY Lorazepam 1 Mg Tablet 1 Tab PO BID Levothyroxine Sodium 175 Mcg Tablet 1 Tab PO DAILY Furosemide 20 Mg Tablet 1 Tab PO DAILY Carvedilol (Carvedilol) 12.5 Mg Tablet 1 Tab PO BID Amlodipine Besylate 10 Mg Tablet 10 Mg PO DAILY Vitals/I & O Vital Sign - Last 24 Hours 02/09/19 02/09/19 02/09/19 02/09/19 09:26 10:21 11:30 12:03 Temp 97.7 97.7 Pulse 69 64 68 Resp 28 24 B/P (MAP) 81/41 (54) 95/48 (64) 94/47 (63) Pulse Ox 96 93 88 O2 Delivery High Flow Nasal Cannula High Flow Nasal Cannula High Flow Nasal Cannula High Flow Nasal Cannula O2 Flow Rate 14.0 14.0 14.0 14.0 02/09/19 02/09/19 02/09/19 02/09/19 12:20 12:47 12:47 13:45 Pulse 67 70 Resp B/P (MAP) 94/51 (65) 96/53 (67) Pulse Ox 92 92 O2 Delivery High Flow Nasal Cannula Nasal Cannula Nasal Cannula O2 Flow Rate 14.0 14.0 14.0 14.0 02/09/19 02/09/19 02/09/19 02/09/19 14:21 15:23 16:23 16:30 Temp 98.2 98.2 Pulse 70 73 Resp B/P (MAP) 86/51 (63) 105/52 (69) Pulse Ox 90 89 O2 Delivery Nasal Cannula Nasal Cannula High Flow Nasal Cannula O2 Flow Rate 14.0 14.0 14.0 14.0 02/09/19 02/09/19 02/09/19 02/09/19 16:30 17:22 18:41 18:44 Pulse 74 80 82 Resp 24 B/P (MAP) 108/53 (71) 117/55 117/55 (75) Pulse Ox 91 86 O2 Delivery Nasal Cannula High Flow Nasal Cannula High Flow Nasal Cannula O2 Flow Rate 14.0 14.0 14.0 02/09/19 02/09/19 02/09/19 02/09/19 19:00 19:29 19:35 20:00 Temp 98.5 98.5 Pulse 71 66 Resp 22 B/P (MAP) 116/62 (80) 98/50 (66) Pulse Ox 88 88 92 95 O2 Delivery NonRebreather Mask NonRebreather Mask BiPAP/CPAP BiPAP/CPAP O2 Flow Rate 15.0 02/09/19 02/09/19 02/09/19 02/09/19 20:00 20:00 21:00 21:45 Pulse 72 Resp 23 B/P (MAP) 116/68 (84) Pulse Ox 99 99 O2 Delivery Bi-pap BiPAP/CPAP O2 Flow Rate 15.0 02/09/19 02/09/19 02/10/19 02/10/19 22:00 23:00 00:00 00:00 Temp 98.7 98.7 Pulse 72 68 70 Resp 22 20 18 B/P (MAP) 109/54 (72) 108/54 (72) 114/65 (81) Pulse Ox 96 94 94 O2 Delivery BiPAP/CPAP BiPAP/CPAP BiPAP/CPAP Bi-pap O2 Flow Rate 14.0 02/10/19 02/10/19 02/10/19 02/10/19 00:00 00:47 01:00 02:00 Pulse 66 66 Resp 20 18 B/P (MAP) 105/64 (78) 101/68 (79) Pulse Ox 90 98 98 O2 Delivery BiPAP/CPAP BiPAP/CPAP BiPAP/CPAP O2 Flow Rate 15.0 02/10/19 02/10/19 02/10/19 02/10/19 03:00 03:23 04:00 04:00 Pulse 65 Resp 16 B/P (MAP) 105/53 (70) Pulse Ox 98 97 O2 Delivery BiPAP/CPAP BiPAP/CPAP Bi-pap O2 Flow Rate 15.0 02/10/19 02/10/19 02/10/19 02/10/19 04:00 05:00 05:12 06:00 Temp 98.3 98.3 Pulse 62 68 65 Resp 20 20 18 B/P (MAP) 107/55 (72) 105/55 (72) 108/55 (72) Pulse Ox 95 98 97 98 O2 Delivery BiPAP/CPAP BiPAP/CPAP BiPAP/CPAP BiPAP/CPAP 02/10/19 02/10/19 07:22 08:09 Temp 98.3 98.3 Pulse 65 Resp 18 B/P (MAP) 93/53 (66) Pulse Ox 98 97 O2 Delivery BiPAP/CPAP BiPAP/CPAP Intake and Output 02/09/19 02/09/19 02/10/19 14:59 22:59 06:59 Intake Total 948 ml 650 ml 700 ml Output Total 550 ml 300 ml 700 ml Balance 398 ml 350 ml 0 ml Nutrition Consultation Dietary Evaluation: Recommendations by RD: Increase Calorie Intake Comments: REC Jevity 1.5 bolus 8 cans/day, feed 4x/day (2 cans/feeding) w/min of 150 ml water flush w/each feeding Expected Outcomes/Goals: TF infusion to meet >75% est needs Malnutrition Findings: Weight Status: Appropriate MAYDA BROWNING MD Feb 10, 2019 09:14
--- NOTE | 2019-02-10 09:22 | RAD ---
CT CHEST W/CONTRAST Indication: Worsening chest x-ray despite treatment. Exposure: One or more of the following individualized dose reduction techniques were utilized for this examination: 1. Automated exposure control 2. Adjustment of the mA and/or kV according to patient size 3. Use of iterative reconstruction technique. Technique: Standard imaging obtained after intravenous contrast administration. Comparison: CTA chest Nov 08 2018. FINDINGS: Irregularity of the wall of the ascending aorta, likely due to pulsatility artifact. 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 This is stable since prior study. No evidence of aortic aneurysm or descending aortic dissection. Atherosclerotic aortic calcifications. Main central pulmonary arteries are grossly patent. Development of mildly enlarged mediastinal lymph nodes. For example, a prevascular node measures 1.5 cm short axis. A pretracheal node measures 1.8 cm short axis. Smaller hilar lymph nodes are seen bilaterally. No significant axillary lymph node enlargement. Thyroid is symmetric. No significant pericardial effusion. Heart size is enlarged. Severe dense consolidation/infiltrate of the entire right lower lobe and much of the right upper lobe and right middle lobe. Diffuse air bronchograms. Moderate patchy infiltrate/consolidation in the left lower lobe and to lesser extent left upper lobe. There is some irregular density within the left lower lobe tissue and to lesser extent the right lower lobe, concerning for aspirated contrast material, such as from prior radiographic procedure. This was also seen on the prior study. There is some irregularity and narrowing of the right mainstem bronchus. Small mural nodule in the left mainstem bronchus could represent a mucous plug. These findings were seen on the prior study. The trachea is grossly patent. Vertebral body height and alignment are intact. There is degenerative spondylosis. No aggressive bone destruction. Scans to the upper abdomen are limited by technique. There is mild diffuse hazy density within the peritoneal and retroperitoneal fat as well as the body wall suggesting edema. Percutaneous gastrostomy tube is in place. Large low-density lesion of the upper left kidney measures 8 cm, and 12 Hounsfield units, most compatible with a cyst. Much smaller lesion in the anterior kidney also most likely a cyst. Diverticulosis. These findings were also seen previously. IMPRESSION: 1. Severe nonspecific infiltrate/consolidation in both lungs, greater on the right. Findings are most concerning for infectious etiology and/or aspiration. Recommend continued follow-up imaging. 2. Irregularity and narrowing of the right mainstem bronchus, uncertain etiology, not seen on the prior study. Correlation with bronchoscopy may be beneficial. There is also a small nodule in the left mainstem bronchus, most likely mucous plug, although small endobronchial mass is possible. 3. Development of mild mediastinal and hilar lymph node enlargement. This is nonspecific and could be inflammatory or infectious, but neoplastic etiology is not excludable. Electronically signed by: Tristian Perez MD (02/10/2019 9:19 AM) [facility]
[2019-02-10] MEDS: VANCOMYCIN PER PHARMACY MC PRN ×2 (10:34→10:39)
[2019-02-10] MEDS: POLYETHYLENE GLYCOL 3350 17 GM PACKET. PO SCH (12:54)
--- NOTE | 2019-02-10 14:16 | PDOC ---
PULMONARY PROGRESS NOTES Subjective PT ABOUT THE SAME SOME COUGH NOT MORE SOA Vitals Vital Signs Date Time Temp Pulse Resp B/P (MAP) Pulse Ox O2 Delivery O2 Flow Rate FiO2 02/10/19 12:25 69 20 100/46 (64) 94 High Flow Nasal Cannula 12.0 02/10/19 11:20 98.3 98.3 ROS: No Nausea, No Chest Pain, No Abdominal Pain, No Increase Cough General: Alert HEENT: Other (NO JVD) Lungs: Crackles Cardiovascular: S1, S2 Abdomen: Soft, Non-tender Neuro Exam: Alert Extremities: No Edema Skin: Warm Labs Laboratory Tests Test 02/09/19 07:15 02/10/19 04:30 Creatinine 0.6 mg/dL (0.7-1.3) 0.6 mg/dL (0.7-1.3) Estimated GFR (Cockcroft-Gault) 134.4 134.4 Procalcitonin 18.15 ng/mL (0.00-0.10) 12.07 ng/mL (0.00-0.10) Vancomycin Level Trough 13.5 mcg/mL (10.0-20.0) Vancomycin Last Dose Date 02/08/19 Vancomycin Last Dose Time 2000 White Blood Count 8.9 x10^3/uL (4.0-11.0) Red Blood Count 3.48 x10^6/uL (4.30-5.70) Hemoglobin 10.7 g/dL (13.0-17.5) Hematocrit 32.4 % (39.0-53.0) Mean Corpuscular Volume 93 fL (79-100) Mean Corpuscular Hemoglobin 31 pg (25-35) Mean Corpuscular Hemoglobin Concent 33 g/dL (31-37) Red Cell Distribution Width 14.9 % (11.5-14.5) Platelet Count 116 x10^3/uL (140-400) Neutrophils (%) (Auto) 81 % (31-73) Lymphocytes (%) (Auto) 9 % (24-48) Monocytes (%) (Auto) 10 % (0-9) Eosinophils (%) (Auto) 0 % (0-3) Basophils (%) (Auto) 0 % (0-3) Neutrophils # (Auto) 7.2 x10^3/uL (1.8-7.7) Lymphocytes # (Auto) 0.8 x10^3/uL (1.0-4.8) Monocytes # (Auto) 0.9 x10^3/uL (0.0-1.1) Eosinophils # (Auto) 0.0 x10^3/uL (0.0-0.7) Basophils # (Auto) 0.0 x10^3/uL (0.0-0.2) FL-Ful-H-Type Natriuretic Peptide 1890 pg/mL (0-124) Laboratory Tests Test 02/10/19 04:30 White Blood Count 8.9 x10^3/uL (4.0-11.0) Red Blood Count 3.48 x10^6/uL (4.30-5.70) Hemoglobin 10.7 g/dL (13.0-17.5) Hematocrit 32.4 % (39.0-53.0) Mean Corpuscular Volume 93 fL (79-100) Mean Corpuscular Hemoglobin 31 pg (25-35) Mean Corpuscular Hemoglobin Concent 33 g/dL (31-37) Red Cell Distribution Width 14.9 % (11.5-14.5) Platelet Count 116 x10^3/uL (140-400) Neutrophils (%) (Auto) 81 % (31-73) Lymphocytes (%) (Auto) 9 % (24-48) Monocytes (%) (Auto) 10 % (0-9) Eosinophils (%) (Auto) 0 % (0-3) Basophils (%) (Auto) 0 % (0-3) Neutrophils # (Auto) 7.2 x10^3/uL (1.8-7.7) Lymphocytes # (Auto) 0.8 x10^3/uL (1.0-4.8) Monocytes # (Auto) 0.9 x10^3/uL (0.0-1.1) Eosinophils # (Auto) 0.0 x10^3/uL (0.0-0.7) Basophils # (Auto) 0.0 x10^3/uL (0.0-0.2) Creatinine 0.6 mg/dL (0.7-1.3) Estimated GFR (Cockcroft-Gault) 134.4 JD-Pcl-I-Type Natriuretic Peptide 1890 pg/mL (0-124) Procalcitonin 12.07 ng/mL (0.00-0.10) Medications Active Scripts Medications Dose Route/Sig Max Daily Dose Days Date Category Rosuvastatin Calcium 40 Mg Tablet 40 Mg PO HS 02/07/19 Reported Zolpidem Tartrate 10 Mg Tablet 1 Tab PO QHS 07/10/16 Reported Zoloft (Sertraline Hcl) 100 Mg Tablet 1 Tab PO DAILY 07/10/16 Reported Potassium Chloride 10 Meq Capsule.er 10 Meq PO DAILY 07/10/16 Reported Miralax (Polyethylene Glycol 3350) 17 Gm Powd.pack 1 Packet PO DAILY 07/10/16 Reported Lorazepam 1 Mg Tablet 1 Tab PO BID 07/10/16 Reported Levothyroxine Sodium 175 Mcg Tablet 1 Tab PO DAILY 07/10/16 Reported Furosemide 20 Mg Tablet 1 Tab PO DAILY 07/10/16 Reported Carvedilol (Carvedilol) 12.5 Mg Tablet 1 Tab PO BID 07/10/16 Reported Amlodipine Besylate 10 Mg Tablet 10 Mg PO DAILY 07/10/16 Reported Impression . IMPRESSION: 1. Acute on chronic hypoxemic respiratory failure. 2. Acute aspiration pneumonia. 3. Abnormal x-ray compatible with aspiration pneumonia. 4. History of tongue cancer, status post chemoradiation approximately 8 years ago. 5. Coronary artery disease with previous normal ejection fraction. 6. Anxiety and depression. 7. Underlying COPD. 8. Status post PEG tube placement. 9. Severe protein malnutrition, present upon admission. 10. Obstructive sleep apnea. CT CHEST IMPRESSION: 1. Severe nonspecific infiltrate/consolidation in both lungs, greater on the right. Findings are most concerning for infectious etiology and/or aspiration. Recommend continued follow-up imaging. 2. Irregularity and narrowing of the right mainstem bronchus, uncertain etiology, not seen on the prior study. Correlation with bronchoscopy may be beneficial. There is also a small nodule in the left mainstem bronchus, most likely mucous plug, although small endobronchial mass is possible. 3. Development of mild mediastinal and hilar lymph node enlargement. This is nonspecific and could be inflammatory or infectious, but neoplastic etiology is not excludable. Plan . REVIEWED THE CT CHEST APPEARS ALL RELATED TO ACUTE AND CHRONIC ASPIRATION HE HAD SOME CHANGES ON CT OF MAY NOW WORSE SPOKE WITH I RECOMMEND D/C BOLUS FEEDING, START CONTINUOS FEEDING WILL NEED A REPEAT CT IN 6-8 WEEKS ANTIBX DVT ANG GI PROPH D/W CCT 30 MINUTE REVIEWING THE DATA/LABS/CXR AND FORMULATING A DIET PT UP TO CHAIR IS UMANG HOYT MD Feb 10, 2019 14:16
--- NOTE | 2019-02-10 15:55 | PDOC ---
Infectious Disease Note Vital Sign Vital Signs Vital Signs Date Time Temp Pulse Resp B/P (MAP) Pulse Ox O2 Delivery O2 Flow Rate FiO2 02/10/19 15:20 98.6 70 20 100/50 (67) 94 High Flow Nasal Cannula 10.0 98.6 Labs Lab Laboratory Tests Test 02/10/19 04:30 White Blood Count 8.9 x10^3/uL (4.0-11.0) Red Blood Count 3.48 x10^6/uL (4.30-5.70) Hemoglobin 10.7 g/dL (13.0-17.5) Hematocrit 32.4 % (39.0-53.0) Mean Corpuscular Volume 93 fL (79-100) Mean Corpuscular Hemoglobin 31 pg (25-35) Mean Corpuscular Hemoglobin Concent 33 g/dL (31-37) Red Cell Distribution Width 14.9 % (11.5-14.5) Platelet Count 116 x10^3/uL (140-400) Neutrophils (%) (Auto) 81 % (31-73) Lymphocytes (%) (Auto) 9 % (24-48) Monocytes (%) (Auto) 10 % (0-9) Eosinophils (%) (Auto) 0 % (0-3) Basophils (%) (Auto) 0 % (0-3) Neutrophils # (Auto) 7.2 x10^3/uL (1.8-7.7) Lymphocytes # (Auto) 0.8 x10^3/uL (1.0-4.8) Monocytes # (Auto) 0.9 x10^3/uL (0.0-1.1) Eosinophils # (Auto) 0.0 x10^3/uL (0.0-0.7) Basophils # (Auto) 0.0 x10^3/uL (0.0-0.2) Creatinine 0.6 mg/dL (0.7-1.3) Estimated GFR (Cockcroft-Gault) 134.4 PB-Dss-S-Type Natriuretic Peptide 1890 pg/mL (0-124) Procalcitonin 12.07 ng/mL (0.00-0.10) Micro Chest CT 1. Severe nonspecific infiltrate/consolidation in both lungs, greater on the right. Findings are most concerning for infectious etiology and/or aspiration. Recommend continued follow-up imaging. 2. Irregularity and narrowing of the right mainstem bronchus, uncertain etiology, not seen on the prior study. Correlation with bronchoscopy may be beneficial. There is also a small nodule in the left mainstem bronchus, most likely mucous plug, although small endobronchial mass is possible. 3. Development of mild mediastinal and hilar lymph node enlargement. This is nonspecific and could be inflammatory or infectious, but neoplastic etiology is not excludable. Objective Assessment Aspiration pneumonia -OP Augmentin 3 weeks ago Dysphagia, maintained on tube feeds Cipro allergy/intolerance w/ renal failure Anemia h/o tongue cancer s/p chemoradiation, 2008 Obstructive sleep apnea, CPAP h/o Klebsiella, MSSA & Group B strep in sputum Plan Plan of Care Continue Zosyn Continue vanc for now Monitor renal function closely Sputum culture Maintain aspiration precautions Thank you [id number] Patient seen and examined. Chart reviewed in detail. Case discussed with [employer]. Agree with above plan. ADAN SALEH APRN Feb 10, 2019 15:55 BERNADETTE WOODS MD Feb 10, 2019 21:33
--- NOTE | 2019-02-10 17:33 | CARD ---
MR#: [id number] Date of Study: 02/10/2019 Ordering Physician: MAYDA BROWNING, Referring Physician: MAYDA BROWNING Tech: Kanwal Aleman [facility] APPROVED REPORT EXAM: LIMITED Two-dimensional and M-mode echocardiogram. Other Information Quality : AverageHR: 70bpm Rhythm : NSR INDICATION Follow up LVEF 2D DIMENSIONS RVDd2.9 (2.9-3.5cm)Left Atrium(2D)4.2 (1.6-4.0cm) IVSd1.3 (0.7-1.1cm)Aortic Root(2D)3.7 (2.0-3.7cm) LVDd4.8 (3.9-5.9cm)PWd1.1 (0.7-1.1cm) LVDs3.3 (2.5-4.0cm)FS (%) 31.9 % SV64.5 mlLVEF(%)59.8 (>50%) M-Mode DIMENSIONS Left Atrium(MM)4.20 (2.5-4.0cm) LEFT VENTRICLE The left ventricle is normal size. There is borderline to mild concentric left ventricular hypertroph y. The left ventricular systolic function is normal and the ejection fraction is within normal range. The Ejection Fraction is 55-60%. There is normal LV segmental wall motion. Transmitral Doppler flow pattern is abnormal. RIGHT VENTRICLE The right ventricle is normal size. There is normal right ventricular wall thickness. The right ventr icular systolic function is normal. ATRIA The left atrium is mildly dilated. The right atrium size is normal. The interatrial septum is intact with no evidence for an atrial septal defect or patent foramen ovale as noted on 2-D or Doppler imagi ng. AORTIC VALVE The aortic valve is normal in structure and function. The aortic valve is trileaflet. Doppler and Col or Flow revealed no significant aortic regurgitation. There is no significant aortic valvular stenosi s. MITRAL VALVE The mitral valve is normal in structure and function. There is no evidence of mitral valve prolapse. There is no mitral valve stenosis. Doppler and Color Flow revealed no mitral valve regurgitation note d. TRICUSPID VALVE The tricuspid valve is normal in structure and function. Doppler and Color Flow revealed trace tricus pid valve regurgitation. There is no tricuspid valve prolapse or vegetation. There is no tricuspid va lve stenosis. PULMONIC VALVE The pulmonic valve is not well visualized. GREAT VESSELS The aortic root is normal in size. The ascending aorta is normal in size. The IVC was not visualized. PERICARDIAL EFFUSION There is no evidence of significant pericardial effusion. Critical Notification Critical Value: No <Conclusion> The left ventricle is normal size. The left ventricular systolic function is normal and the ejection fraction is within normal range. The Ejection Fraction is 55-60%. There is borderline to mild concentric left ventricular hypertrophy. There is no significant aortic valvular stenosis. Doppler and Color Flow revealed no significant aortic regurgitation. Doppler and Color Flow revealed no mitral valve regurgitation noted. Doppler and Color Flow revealed trace tricuspid valve regurgitation. Signed by : Anupam Hernandez MD Electronically Approved : 02/10/2019 17:32:39
--- NOTE | 2019-02-10 17:59 | CONS ---
DATE OF CONSULTATION: 02/10/2019 Darren Blanco, nurse practitioner dictating for Dr. Poncho Drew, Infectious Disease. REFERRING PHYSICIAN: Dr. Pierson. REASON FOR CONSULTATION: Worsening infiltrate. HISTORY OF PRESENT ILLNESS: This patient is a 68-year-old male with a history of tongue cancer status post chemoradiation in 2008 and maintained on tube feedings. Two days ago after a bolus feed, he felt too tired to stay up and instead went to sleep, lying flat. He woke up with reflux and about an hour later had trouble breathing. He said he could not catch his breath. His oxygen saturations dropped to 75%. He has home oxygen as needed and applied 4 liters with minimal improvement. He was initially evaluated at [facility]. He was afebrile with a normal white blood cell count, lactic acid 1.7. Chest x-ray showed consolidative infiltrate within the right mid and lower lung zone. Stable left lung base infiltrate. He was dosed with Unasyn before transferring down to [place]. The patient says he is feeling better, less work of breathing. He is requiring 10 liters of supplemental oxygen. He denies headache, nasal/sinus congestion, sore throat or chest pain. He has a cough with sputum production. He feels his ears are a little stuffy. He denies fevers, chills or sweats. He says about 3 weeks ago, he developed some chills, muscle cramps and low oxygen saturation. He was treated with a 10-day course of Augmentin. He says he was last hospitalized about 7-8 months ago. PAST MEDICAL HISTORY: History of MSSA, group B strep and Klebsiella in sputum. Tongue cancer, status post chemoradiation in 2008. Dysphagia maintained on tube feedings. Congestive heart failure; heart attack; coronary artery disease; peripheral vascular disease; hyperlipidemia; hypertension; COPD; sleep apnea, on CPAP; gastroesophageal reflux disease; herpes; benign prostatic hyperplasia; carpal tunnel syndrome; hypothyroidism; depression; anxiety; anemia. PAST SURGICAL HISTORY: Austin-Osei button placement, carpal tunnel release, tonsillectomy, radical neck dissection in 2007. FAMILY HISTORY: Positive for IA, colon cancer, COPD, anxiety and depression. SOCIAL HISTORY: The patient is and lives at home. 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 Former smoker. ALLERGIES: CIPROFLOXACIN CAUSING RENAL FAILURE. CODEINE. MEDICATIONS: Vancomycin, Zosyn. Previously on Unasyn. Other medications are available and have been reviewed on the AUG. REVIEW OF SYSTEMS: Per HPI, otherwise all other review of systems is negative. PHYSICAL EXAMINATION: VITAL SIGNS: Temperature is 98.6, blood pressure 100/50, heart rate 70, respiratory rate 20, pulse oximetry is 94% on 10 liters oxygen. BMI 23. GENERAL: The patient is sitting in the chair, alert and watching TV. HEENT: Pupils equally round, reactive. Normal conjunctivae. Oropharynx pink and moist. No lesions seen. NECK: Supple. LUNGS: Diminished aeration in the bases, nonlabored. HEART: S1, S2 regular. ABDOMEN: Nondistended, soft, nontender with bowel sounds present. Austin-Osei button without signs of complications. EXTREMITIES: No gross edema or cyanosis. SKIN: Warm to touch. No signs of rash. NEUROLOGIC: Alert and oriented x 3. Peripheral IV looks okay. LABORATORY DATA: Today's WBC 8.9, hemoglobin 10.7, platelets 116,000. Creatinine 0.6. Electrolytes are unremarkable. BNP 1890. Procalcitonin 12.07 from 34.61 on admission. Albumin 2.4. Vancomycin trough 13.5 on 02/09. Blood cultures from 02/07 ([facility]) is negative to date. Chest CT showed severe nonspecific infiltrate/consolidation in both lungs, greater on the right. Irregularity and narrowing of the right main stem bronchus uncertain etiology. Small nodule in the left main stem bronchus. Development of mild mediastinal and hilar lymph node enlargement. IMPRESSION: 1. Aspiration pneumonia. 2. Dysphagia maintained on tube feedings. 3. Cipro allergy/intolerance with renal failure. 4. Anemia. 5. History of tongue cancer status post chemoradiation in 2008. 6. Obstructive sleep apnea. 7. History of Klebsiella, methicillin-susceptible Staphylococcus aureus, and group B Streptococcus in sputum. PLAN: The patient is clinically improving. Continue Zosyn as well as vancomycin for now. Monitor renal function closely. We will order a sputum culture. Maintain aspiration precautions. Thank you, Dr. Pierson, for asking us to participate in this patient's care. Should you have further questions or concerns, please call. VERRA WEKULLO, MD DR: Meenu JOB#: [id number] / [id number]
[2019-02-10] MEDS: ENOXAPARIN 40 MG/0.4 ML SYRINGE. SQ SCH (20:49)
[2019-02-10] MEDS: ATORVASTATIN CALCIUM 40 MG TABLET. PO SCH (23:08)
[2019-02-10] MEDS: LORazepam 0.5 MG TABLET PO PRN (23:08)
[2019-02-10] MEDS: ZOLPIDEM 5 MG TABLET. PO PRN (23:08)
[2019-02-11 03:00] VITALS: BP 110/71
[2019-02-11] MEDS: PIPERACILLIN/TAZOBACTAM 4.5 GM in IV NORMAL SALINE 100ML 100 ML IV SCH ×3 (06:08→17:43)
[2019-02-11] MEDS: LEVOTHYROXINE 175 MCG TABLET PO SCH (06:08)
[2019-02-11 07:00] VITALS: BP 137/71
--- NOTE | 2019-02-11 07:54 | NUR ---
Critical Lab: WBC 1.5 Robert Pierson @ 0754 Addendum: 02/11/19 at 1037 by DEJUAN GOLD RN RN disregard: Lab reported lab on wrong pt.
[2019-02-11] MEDS: IPRATRPIUM/ALBUTEROL 0.5/2.5MG 3 ML NEBU. NEB SCH ×4 (08:20→19:38)
[2019-02-11] MEDS: POLYETHYLENE GLYCOL 3350 17 GM PACKET. PO SCH (09:05)
[2019-02-11] MEDS: POTASSIUM BICARB 20 MEQ EFFERVESCENT TABLET. PO SCH (09:06)
[2019-02-11] MEDS: SERTRALINE 50 MG TABLET. PO SCH (09:06)
[2019-02-11] MEDS: amLODIPine BESYLATE 10 MG TABLET PO SCH (09:06)
[2019-02-11] MEDS: FUROSEMIDE 20 MG TABLET PO SCH (09:06)
[2019-02-11] MEDS: LANSOPRAZOLE 30 MG TAB.RAP.DR FT SCH (09:07)
[2019-02-11] MEDS: CARVEDILOL 12.5 MG TABLET. PO SCH ×2 (09:08→17:00)
[2019-02-11] MEDS: VANCOMYCIN 1.5 GM in IV NORMAL SALINE 500ML BAG 500 ML IV SCH (09:09)
[2019-02-11 09:38] LABS: CREATININE 0.5 mg/dL (0.7-1.3); GFR 165.9
[2019-02-11 09:44] LABS: VANC TR 13.2 mcg/mL (10.0-20.0)
[2019-02-11] MEDS: VANCOMYCIN PER PHARMACY MC PRN ×2 (10:26→10:32)
--- NOTE | 2019-02-11 10:33 | PDOC ---
Infectious Disease Note Subjective Subjective says is feeling little better, still sob ROS ROS no n/v/d/sob Vital Sign Vital Signs Vital Signs Date Time Temp Pulse Resp B/P (MAP) Pulse Ox O2 Delivery O2 Flow Rate FiO2 02/11/19 09:10 82 120/60 02/11/19 08:20 92 NonRebreather Mask 15.0 02/11/19 07:00 97.9 18 97.9 Physical Exam PHYSICAL EXAM GENERAL: The patient is sitting in the chair, alert and watching TV. HEENT: Pupils equally round, reactive. Normal conjunctivae. Oropharynx pink and moist. No lesions seen. NECK: Supple. LUNGS: Diminished aeration in the bases, nonlabored. HEART: S1, S2 regular. ABDOMEN: Nondistended, soft, nontender with bowel sounds present. Austin-Osei button without signs of complications. EXTREMITIES: No gross edema or cyanosis. SKIN: Warm to touch. No signs of rash. NEUROLOGIC: Alert and oriented x 3. Labs Lab Laboratory Tests Test 02/11/19 08:30 Creatinine 0.5 mg/dL (0.7-1.3) Estimated GFR (Cockcroft-Gault) 165.9 Vancomycin Level Trough 13.2 mcg/mL (10.0-20.0) Vancomycin Last Dose Date 02/10/19 Vancomycin Last Dose Time 2100 Objective Assessment 1. Aspiration pneumonia. 2. Dysphagia maintained on tube feedings. 3. Cipro allergy/intolerance with renal failure. 4. Anemia. 5. History of tongue cancer status post chemoradiation in 2008. 6. Obstructive sleep apnea. 7. History of Klebsiella, methicillin-susceptible Staphylococcus aureus, and group B Streptococcus in sputum. Plan Plan of Care Continue Zosyn Continue vanc for now Monitor renal function closely Sputum culture Maintain aspiration precautions CLIFF REN MD Feb 11, 2019 10:33
--- NOTE | 2019-02-11 10:42 | NUR ---
Pharmacy Vancomycin Dosing Note S: Consulted to monitor and dose vancomycin started 02/07/19. O: ESSENCE HOLT is a 68 year old M with Pneumonia Other Antibiotics: ZOSYN 4.5 GM Q6H LABS: Last BUN: 19 Last Creatinine: 0.5 Creatinine Clearance: 73 mL/min Last WBC: 8.9 Last Procalcitonin: 12.07 Tmax (past 24 hours): 98.6 Microbiology: - I/O: 1430/1800 Drug Levels: Last Trough level: 13.2 on 02/11/19 at 0830 Last dose given 02/11/19 at 0909 Vancomycin Dosing: Dosing Weight: Actual Target Trough: 15-20 A: Based on: trough P: 1. Increase Vancomycin slightly to 1750 mg IV q12h 2. Follow up Trough level to be ordered as needed 3. Pharmacy will continue to monitor, follow and adjust therapy as needed. Nayely Osborne RPH, 02/11/19 [id number]
[2019-02-11 10:57] VITALS: BP 134/68
--- NOTE | 2019-02-11 11:23 | PDOC ---
PULMONARY PROGRESS NOTES Subjective PT AT TIMES DESATURATED WITH CHANGE IN POSITION COUGH AT TIME IS PRODUCTIVE Vitals Vital Signs Date Time Temp Pulse Resp B/P (MAP) Pulse Ox O2 Delivery O2 Flow Rate FiO2 02/11/19 10:57 97.9 80 18 134/68 (90) 94 Venturi Mask 10.0 97.9 ROS: No Nausea, No Chest Pain, No Abdominal Pain, No Increase Cough General: Alert HEENT: Other (NO JVD) Lungs: Crackles Cardiovascular: S1, S2 Abdomen: Soft, Non-tender Neuro Exam: Alert Extremities: No Edema Skin: Warm Labs Laboratory Tests Test 02/10/19 04:30 02/11/19 08:30 White Blood Count 8.9 x10^3/uL (4.0-11.0) Red Blood Count 3.48 x10^6/uL (4.30-5.70) Hemoglobin 10.7 g/dL (13.0-17.5) Hematocrit 32.4 % (39.0-53.0) Mean Corpuscular Volume 93 fL (79-100) Mean Corpuscular Hemoglobin 31 pg (25-35) Mean Corpuscular Hemoglobin Concent 33 g/dL (31-37) Red Cell Distribution Width 14.9 % (11.5-14.5) Platelet Count 116 x10^3/uL (140-400) Neutrophils (%) (Auto) 81 % (31-73) Lymphocytes (%) (Auto) 9 % (24-48) Monocytes (%) (Auto) 10 % (0-9) Eosinophils (%) (Auto) 0 % (0-3) Basophils (%) (Auto) 0 % (0-3) Neutrophils # (Auto) 7.2 x10^3/uL (1.8-7.7) Lymphocytes # (Auto) 0.8 x10^3/uL (1.0-4.8) Monocytes # (Auto) 0.9 x10^3/uL (0.0-1.1) Eosinophils # (Auto) 0.0 x10^3/uL (0.0-0.7) Basophils # (Auto) 0.0 x10^3/uL (0.0-0.2) Creatinine 0.6 mg/dL (0.7-1.3) 0.5 mg/dL (0.7-1.3) Estimated GFR (Cockcroft-Gault) 134.4 165.9 QX-Tkl-M-Type Natriuretic Peptide 1890 pg/mL (0-124) Procalcitonin 12.07 ng/mL (0.00-0.10) Vancomycin Level Trough 13.2 mcg/mL (10.0-20.0) Vancomycin Last Dose Date 02/10/19 Vancomycin Last Dose Time 2100 Laboratory Tests Test 02/11/19 08:30 Creatinine 0.5 mg/dL (0.7-1.3) Estimated GFR (Cockcroft-Gault) 165.9 Vancomycin Level Trough 13.2 mcg/mL (10.0-20.0) Vancomycin Last Dose Date 02/10/19 Vancomycin Last Dose Time 2100 Medications Active Scripts Medications Dose Route/Sig Max Daily Dose Days Date Category Rosuvastatin Calcium 40 Mg Tablet 40 Mg PO HS 02/07/19 Reported Zolpidem Tartrate 10 Mg Tablet 1 Tab PO QHS 07/10/16 Reported Zoloft (Sertraline Hcl) 100 Mg Tablet 1 Tab PO DAILY 07/10/16 Reported Potassium Chloride 10 Meq Capsule.er 10 Meq PO DAILY 07/10/16 Reported Miralax (Polyethylene Glycol 3350) 17 Gm Powd.pack 1 Packet PO DAILY 07/10/16 Reported Lorazepam 1 Mg Tablet 1 Tab PO BID 07/10/16 Reported Levothyroxine Sodium 175 Mcg Tablet 1 Tab PO DAILY 07/10/16 Reported Furosemide 20 Mg Tablet 1 Tab PO DAILY 07/10/16 Reported Carvedilol (Carvedilol) 12.5 Mg Tablet 1 Tab PO BID 07/10/16 Reported Amlodipine Besylate 10 Mg Tablet 10 Mg PO DAILY 07/10/16 Reported Impression . IMPRESSION: 1. Acute on chronic hypoxemic respiratory failure. 2. Acute aspiration pneumonia. 3. Abnormal x-ray compatible with aspiration pneumonia. 4. History of tongue cancer, status post chemoradiation approximately 8 years ago. 5. Coronary artery disease with previous normal ejection fraction. 6. Anxiety and depression. 7. Underlying COPD. 8. Status post PEG tube placement. 9. Severe protein malnutrition, present upon admission. 10. Obstructive sleep apnea. 11. DYSPHAGIA/ESOPHAGEAL DILATATION CT CHEST IMPRESSION: 1. Severe nonspecific infiltrate/consolidation in both lungs, greater on the right. Findings are most concerning for infectious etiology and/or aspiration. Recommend continued follow-up imaging. 2. Irregularity and narrowing of the right mainstem bronchus, uncertain etiology, not seen on the prior study. Correlation with bronchoscopy may be beneficial. There is also a small nodule in the left mainstem bronchus, most likely mucous plug, although small endobronchial mass is possible. 3. Development of mild mediastinal and hilar lymph node enlargement. This is nonspecific and could be inflammatory or infectious, but neoplastic etiology is not excludable. Plan . IS FRUSTRATED AT CURRENT SITUATION I REASSURED HER THAT WE ARE DOING ALL WE CAN WILL ADD FLUTTER VALVE CONSULT PALLIATIVE CARE IF 02 NEEDS DECREASE WILL CONSIDER A BRONCH IN FUTURE WILL NEED A PICC LINE REVIEWED THE CT CHEST APPEARS ALL RELATED TO ACUTE AND CHRONIC ASPIRATION HE HAD SOME CHANGES ON CT OF MAY NOW WORSE SPOKE WITH I RECOMMEND D/C BOLUS FEEDING, START CONTINUOS FEEDING WILL NEED A REPEAT CT IN 6-8 WEEKS ANTIBX DVT ANG GI PROPH D/W CCT 30 MINUTE REVIEWING THE DATA/LABS/CXR AND FORMULATING A DIET UMANG HOYT MD Feb 11, 2019 11:23
--- NOTE | 2019-02-11 12:08 | PDOC ---
[employer] PROGRESS NOTE Chief Complaint Chief Complaint Respiratory Distress Aspiration pneumonia, right middle and right lower lung lobe consolidation CAP CHF History of Present Illness History of Present Illness 02/11/19 Pt sitting and breathing on 100% rebreather; sat-ing at 95% DW RN DW DW Ansley TAWANA Respiratory therapist Nurse reports that overnight he tried O2 by nasal canula, but O2 dropped to 87% Respiratory therapist tried high flow Nasal canula Vitals/I&O Vitals/I&O: Vital Signs Date Time Temp Pulse Resp B/P (MAP) Pulse Ox O2 Delivery O2 Flow Rate FiO2 02/11/19 11:54 92 High Flow Nasal Cannula 12.0 02/11/19 10:57 97.9 80 18 134/68 (90) 97.9 I & O 02/10/19 02/10/19 02/11/19 15:00 23:00 07:00 Intake Total 700 ml 730 ml Output Total 600 ml 700 ml 500 ml Balance 100 ml 30 ml -500 ml Physical Exam General: Alert, Oriented X3, Cooperative, No acute distress Heart: Regular rate, Normal S1, Normal S2 Lungs: Crackles Abdomen: Normal bowel sounds, Soft, No tenderness, No hepatosplenomegaly, No masses Extremities: No clubbing, No cyanosis, No edema, Normal pulses, No tenderness/swelling Skin: No rashes, No breakdown, No significant lesion Labs Labs: Laboratory Tests Test 02/11/19 08:30 Creatinine 0.5 mg/dL (0.7-1.3) Estimated GFR (Cockcroft-Gault) 165.9 Vancomycin Level Trough 13.2 mcg/mL (10.0-20.0) Vancomycin Last Dose Date 02/10/19 Vancomycin Last Dose Time 2100 Review of Systems Review of Systems: Co SOB No co changes in vision Assessment and Plan Assessmemt and Plan Problems Medical Problems: (1) Acute hypoxemic respiratory failure Status: Acute (2) Aspiration pneumonia Status: Acute Assessment Respiratory Distress Aspiration pneumonia CAP CHF Plan IV Zosyn IV Vancomycin IV fluids O2 nasal canula if sufficient; otherwise, 100% rebreather Consult palliative care nurse PT/OT DVT Prophylaxis Full Code Comment Review of Relevant I have reviewed the following items chloe (where applicable) has been applied. Medications: Current Medications Medications (Trade) Dose Ordered Sig/Liliam Route PRN Reason Start Time Stop Time Status Last Admin Dose Admin Vancomycin HCl (Vancomycin Trough Level) 1 each 1X ONCE MC 02/11/19 08:30 02/11/19 08:31 DC 02/11/19 09:10 Iohexol (Omnipaque 300 Mg/ml) 75 ml 1X ONCE IV 02/10/19 17:00 02/10/19 17:01 DC 02/10/19 17:28 MILLIE RÍOS III DO Feb 11, 2019 12:08
--- NOTE | 2019-02-11 14:02 | NUR ---
Pt on 10 lt via NC sat @ 86%. Changed pt back to NRB mask tapering from 10 lt up to 15 lt. Pt still sat @ 86%. Pt sitting at the edge of the bed, sat improved to 89%. RT called for PRN breathing tx. Will cont. to monitor.
[2019-02-11] MEDS ORDERED: IPRATRPIUM/ALBUTEROL 0.5/2.5MG 3 ML NEBU. NEB ONE (14:15)
[2019-02-11 15:00] VITALS: BP 129/64
[2019-02-11] MEDS ORDERED: LORazepam 1 MG TABLET PO SCH (18:00)
--- NOTE | 2019-02-11 18:46 | NUR ---
Pt refused PICC line & Cont. tube feedings. Pt education refused.
[2019-02-11 19:00] VITALS: BP 105/56
[2019-02-11] MEDS: LORazepam 1 MG TABLET PO SCH (20:58)
[2019-02-11] MEDS: ATORVASTATIN CALCIUM 40 MG TABLET. PO SCH (20:58)
[2019-02-11] MEDS: VANCOMYCIN 1.75 GM in IV NORMAL SALINE 500ML BAG 500 ML IV SCH (20:59)
[2019-02-11] MEDS: ENOXAPARIN 40 MG/0.4 ML SYRINGE. SQ SCH (20:59)
[2019-02-11] MEDS: ZOLPIDEM 5 MG TABLET. PO PRN (21:01)
[2019-02-11 23:00] VITALS: BP 118/57
[2019-02-12] MEDS: PIPERACILLIN/TAZOBACTAM 4.5 GM in IV NORMAL SALINE 100ML 100 ML IV SCH ×4 (00:04→18:00)
[2019-02-12 03:00] VITALS: BP 123/62
[2019-02-12] MEDS: LEVOTHYROXINE 175 MCG TABLET PO SCH (06:13)
[2019-02-12 07:00] VITALS: BP 129/66
[2019-02-12] MEDS: IPRATRPIUM/ALBUTEROL 0.5/2.5MG 3 ML NEBU. NEB SCH ×4 (08:13→20:39)
--- NOTE | 2019-02-12 08:55 | NUR ---
SW following pt. Chart reviewed and Pt does not have PT/OT needs. ID following pt and pt is on IV abx. will continue to follow pending dc needs.
[2019-02-12 08:58] LABS: BASO % 0 % (0-3); EOS # 0.1 x10^3/uL (0.0-0.7); EOS % 1 % (0-3); HEMATOCRIT 36.9 % (39.0-53.0); HEMOGLOBIN 12.3 g/dL (13.0-17.5); LYMPH # 0.6 x10^3/uL (1.0-4.8); LYMPH % 7 % (24-48); MEAN CORPUSCULAR HEMOGLOBIN 31 pg (25-35); MEAN CORPUSCULAR HGB CONC 33 g/dL (31-37); MEAN CORPUSCULAR VOLUME 93 fL (79-100); MONO # 0.9 x10^3/uL (0.0-1.1); MONO % 10 % (0-9); NEUT # 7.8 x10^3/uL (1.8-7.7); NEUT % 82 % (31-73); PLATELET COUNT 161 x10^3/uL (140-400); RED BLOOD COUNT 3.98 x10^6/uL (4.30-5.70); RED CELL DISTRIBUTION WIDTH 14.7 % (11.5-14.5); WHITE BLOOD COUNT 9.5 x10^3/uL (4.0-11.0)
[2019-02-12 09:06] LABS: CALCIUM 8.9 mg/dL (8.5-10.1); CREATININE 0.5 mg/dL (0.7-1.3); GFR 165.9; POTASSIUM 3.3 mmol/L (3.5-5.1)
[2019-02-12] MEDS: POLYETHYLENE GLYCOL 3350 17 GM PACKET. PO SCH (09:41)
[2019-02-12] MEDS: VANCOMYCIN 1.75 GM in IV NORMAL SALINE 500ML BAG 500 ML IV SCH ×2 (09:41→20:56)
[2019-02-12] MEDS: POTASSIUM BICARB 20 MEQ EFFERVESCENT TABLET. PO SCH (09:43)
[2019-02-12] MEDS: SERTRALINE 50 MG TABLET. PO SCH (09:45)
[2019-02-12] MEDS: LANSOPRAZOLE 30 MG TAB.RAP.DR FT SCH (09:45)
[2019-02-12] MEDS: FUROSEMIDE 20 MG TABLET PO SCH (09:46)
[2019-02-12] MEDS: amLODIPine BESYLATE 10 MG TABLET PO SCH (09:46)
[2019-02-12] MEDS: CARVEDILOL 12.5 MG TABLET. PO SCH ×2 (09:48→17:00)
--- NOTE | 2019-02-12 10:40 | PDOC ---
Infectious Disease Note Subjective Subjective says is feeling little better, still sob ROS ROS no n/v/d/ Vital Sign Vital Signs Vital Signs Date Time Temp Pulse Resp B/P (MAP) Pulse Ox O2 Delivery O2 Flow Rate FiO2 02/12/19 09:48 82 126/66 02/12/19 08:16 93 High Flow Nasal Cannula 15.0 02/12/19 07:00 97.7 18 97.7 Physical Exam PHYSICAL EXAM GENERAL: The patient is sitting in the chair, alert and watching TV. HEENT: Pupils equally round, reactive. Normal conjunctivae. Oropharynx pink and moist. No lesions seen. NECK: Supple. LUNGS: Diminished aeration in the bases, nonlabored. HEART: S1, S2 regular. ABDOMEN: Nondistended, soft, nontender with bowel sounds present. Austin-Osei button without signs of complications. EXTREMITIES: No gross edema or cyanosis. SKIN: Warm to touch. No signs of rash. NEUROLOGIC: Alert and oriented x 3. Labs Lab Laboratory Tests Test 02/12/19 07:25 White Blood Count 9.5 x10^3/uL (4.0-11.0) Red Blood Count 3.98 x10^6/uL (4.30-5.70) Hemoglobin 12.3 g/dL (13.0-17.5) Hematocrit 36.9 % (39.0-53.0) Mean Corpuscular Volume 93 fL (79-100) Mean Corpuscular Hemoglobin 31 pg (25-35) Mean Corpuscular Hemoglobin Concent 33 g/dL (31-37) Red Cell Distribution Width 14.7 % (11.5-14.5) Platelet Count 161 x10^3/uL (140-400) Neutrophils (%) (Auto) 82 % (31-73) Lymphocytes (%) (Auto) 7 % (24-48) Monocytes (%) (Auto) 10 % (0-9) Eosinophils (%) (Auto) 1 % (0-3) Basophils (%) (Auto) 0 % (0-3) Neutrophils # (Auto) 7.8 x10^3/uL (1.8-7.7) Lymphocytes # (Auto) 0.6 x10^3/uL (1.0-4.8) Monocytes # (Auto) 0.9 x10^3/uL (0.0-1.1) Eosinophils # (Auto) 0.1 x10^3/uL (0.0-0.7) Basophils # (Auto) 0.0 x10^3/uL (0.0-0.2) Sodium Level 141 mmol/L (136-145) Potassium Level 3.3 mmol/L (3.5-5.1) Chloride Level 100 mmol/L (98-107) Carbon Dioxide Level 40 mmol/L (21-32) Anion Gap 1 (6-14) Blood Urea Nitrogen 12 mg/dL (8-26) Creatinine 0.5 mg/dL (0.7-1.3) Estimated GFR (Cockcroft-Gault) 165.9 Glucose Level 121 mg/dL (70-99) Calcium Level 8.9 mg/dL (8.5-10.1) Objective Assessment 1. Aspiration pneumonia. 2. Dysphagia maintained on tube feedings. 3. Cipro allergy/intolerance with renal failure. 4. Anemia. 5. History of tongue cancer status post chemoradiation in 2008. 6. Obstructive sleep apnea. 7. History of Klebsiella, methicillin-susceptible Staphylococcus aureus, and group B Streptococcus in sputum. Plan Plan of Care Continue Zosyn Continue vanc for now Monitor renal function closely Sputum culture Maintain aspiration precautions d/w and CLIFF Donahue MD Feb 12, 2019 10:40
[2019-02-12 11:00] VITALS: BP 126/66
--- NOTE | 2019-02-12 11:11 | PDOC ---
PULMONARY PROGRESS NOTES Subjective REMAINS ON 15 LITRES CANULA Vitals Vital Signs Date Time Temp Pulse Resp B/P (MAP) Pulse Ox O2 Delivery O2 Flow Rate FiO2 02/12/19 09:48 82 126/66 02/12/19 08:16 93 High Flow Nasal Cannula 15.0 02/12/19 07:00 97.7 18 97.7 ROS: No Nausea, No Chest Pain, No Abdominal Pain, No Increase Cough General: Alert HEENT: Other (NO JVD) Lungs: Crackles (right lung) Cardiovascular: S1, S2 Abdomen: Soft, Non-tender Neuro Exam: Alert Extremities: No Edema Skin: Warm Labs Laboratory Tests Test 02/11/19 08:30 02/12/19 07:25 Creatinine 0.5 mg/dL (0.7-1.3) 0.5 mg/dL (0.7-1.3) Estimated GFR (Cockcroft-Gault) 165.9 165.9 Vancomycin Level Trough 13.2 mcg/mL (10.0-20.0) Vancomycin Last Dose Date 02/10/19 Vancomycin Last Dose Time 2100 White Blood Count 9.5 x10^3/uL (4.0-11.0) Red Blood Count 3.98 x10^6/uL (4.30-5.70) Hemoglobin 12.3 g/dL (13.0-17.5) Hematocrit 36.9 % (39.0-53.0) Mean Corpuscular Volume 93 fL (79-100) Mean Corpuscular Hemoglobin 31 pg (25-35) Mean Corpuscular Hemoglobin Concent 33 g/dL (31-37) Red Cell Distribution Width 14.7 % (11.5-14.5) Platelet Count 161 x10^3/uL (140-400) Neutrophils (%) (Auto) 82 % (31-73) Lymphocytes (%) (Auto) 7 % (24-48) Monocytes (%) (Auto) 10 % (0-9) Eosinophils (%) (Auto) 1 % (0-3) Basophils (%) (Auto) 0 % (0-3) Neutrophils # (Auto) 7.8 x10^3/uL (1.8-7.7) Lymphocytes # (Auto) 0.6 x10^3/uL (1.0-4.8) Monocytes # (Auto) 0.9 x10^3/uL (0.0-1.1) Eosinophils # (Auto) 0.1 x10^3/uL (0.0-0.7) Basophils # (Auto) 0.0 x10^3/uL (0.0-0.2) Sodium Level 141 mmol/L (136-145) Potassium Level 3.3 mmol/L (3.5-5.1) Chloride Level 100 mmol/L (98-107) Carbon Dioxide Level 40 mmol/L (21-32) Anion Gap 1 (6-14) Blood Urea Nitrogen 12 mg/dL (8-26) Glucose Level 121 mg/dL (70-99) Calcium Level 8.9 mg/dL (8.5-10.1) Laboratory Tests Test 02/12/19 07:25 White Blood Count 9.5 x10^3/uL (4.0-11.0) Red Blood Count 3.98 x10^6/uL (4.30-5.70) Hemoglobin 12.3 g/dL (13.0-17.5) Hematocrit 36.9 % (39.0-53.0) Mean Corpuscular Volume 93 fL (79-100) Mean Corpuscular Hemoglobin 31 pg (25-35) Mean Corpuscular Hemoglobin Concent 33 g/dL (31-37) Red Cell Distribution Width 14.7 % (11.5-14.5) Platelet Count 161 x10^3/uL (140-400) Neutrophils (%) (Auto) 82 % (31-73) Lymphocytes (%) (Auto) 7 % (24-48) Monocytes (%) (Auto) 10 % (0-9) Eosinophils (%) (Auto) 1 % (0-3) Basophils (%) (Auto) 0 % (0-3) Neutrophils # (Auto) 7.8 x10^3/uL (1.8-7.7) Lymphocytes # (Auto) 0.6 x10^3/uL (1.0-4.8) Monocytes # (Auto) 0.9 x10^3/uL (0.0-1.1) Eosinophils # (Auto) 0.1 x10^3/uL (0.0-0.7) Basophils # (Auto) 0.0 x10^3/uL (0.0-0.2) Sodium Level 141 mmol/L (136-145) Potassium Level 3.3 mmol/L (3.5-5.1) Chloride Level 100 mmol/L (98-107) Carbon Dioxide Level 40 mmol/L (21-32) Anion Gap 1 (6-14) Blood Urea Nitrogen 12 mg/dL (8-26) Creatinine 0.5 mg/dL (0.7-1.3) Estimated GFR (Cockcroft-Gault) 165.9 Glucose Level 121 mg/dL (70-99) Calcium Level 8.9 mg/dL (8.5-10.1) Medications Active Scripts Medications Dose Route/Sig Max Daily Dose Days Date Category Rosuvastatin Calcium 40 Mg Tablet 40 Mg PO HS 02/07/19 Reported Zolpidem Tartrate 10 Mg Tablet 1 Tab PO QHS 07/10/16 Reported Zoloft (Sertraline Hcl) 100 Mg Tablet 1 Tab PO DAILY 07/10/16 Reported Potassium Chloride 10 Meq Capsule.er 10 Meq PO DAILY 07/10/16 Reported Miralax (Polyethylene Glycol 3350) 17 Gm Powd.pack 1 Packet PO DAILY 07/10/16 Reported Lorazepam 1 Mg Tablet 1 Tab PO BID 07/10/16 Reported Levothyroxine Sodium 175 Mcg Tablet 1 Tab PO DAILY 07/10/16 Reported Furosemide 20 Mg Tablet 1 Tab PO DAILY 07/10/16 Reported Carvedilol (Carvedilol) 12.5 Mg Tablet 1 Tab PO BID 07/10/16 Reported Amlodipine Besylate 10 Mg Tablet 10 Mg PO DAILY 07/10/16 Reported Comments cxr 02/12 no sig change Impression . IMPRESSION: 1. Acute on chronic hypoxemic respiratory failure. 2. Acute aspiration pneumonia. 3. Abnormal x-ray compatible / Ct chest with extensive consolidation of entire right lung and LLL due to aspiration pneumonia. 4. History of tongue cancer, status post chemoradiation approximately 8 years ago. 5. Coronary artery disease with previous normal ejection fraction. 6. Anxiety and depression. 7. Underlying COPD. 8. Status post PEG tube placement. 9. Severe protein malnutrition, present upon admission. 10. Obstructive sleep apnea. 11. DYSPHAGIA/ESOPHAGEAL DILATATION CT CHEST IMPRESSION: 1. Severe nonspecific infiltrate/consolidation in both lungs, greater on the right. Findings are most concerning for infectious etiology and/or aspiration. Recommend continued follow-up imaging. 2. Irregularity and narrowing of the right mainstem bronchus, uncertain etiology, not seen on the prior study. Correlation with bronchoscopy may be beneficial. There is also a small nodule in the left mainstem bronchus, most likely mucous plug, although small endobronchial mass is possible. 3. Development of mild mediastinal and hilar lymph node enlargement. This is nonspecific and could be inflammatory or infectious, but neoplastic etiology is not excludable. Plan . D/W IN DETAIL/ EXPLAINED TO HER THAT IT WILL TAKE A LONG TIME FOR HIM TO RECOVER FROM THIS EXTENSIVE PNEUMONIA WILL NOT TOLERATE BRONCH FLUTTER VALVE IF 02 NEEDS DECREASE WILL CONSIDER A BRONCH IN FUTURE F/U CXR NEEDED HIGH FLOW O2 REVIEWED THE CT CHEST APPEARS ALL RELATED TO ACUTE AND CHRONIC ASPIRATION CONTINUOS FEEDING WILL NEED A REPEAT CT IN 6-8 WEEKS CONSIDER LTAC EVAL BS ABX PER ID D/W TAJ FOX MD Feb 12, 2019 11:11
--- NOTE | 2019-02-12 11:34 | PDOC ---
[facility] PROGRESS NOTE Chief Complaint Chief Complaint Respiratory Distress Aspiration pneumonia, right middle and right lower lung lobe consolidation CAP CHF History of Present Illness History of Present Illness 02/12/19 Pt seen and examined at bedside Pt currently on NC 10.0 L and sating at 95% DW RN Pt will be meeting with palliative care team later today 02/11/19 Pt sitting and breathing on 100% rebreather; sat-ing at 95% DW RN DW DW [place] DW Respiratory therapist Nurse reports that overnight he tried O2 by nasal canula, but O2 dropped to 87% Respiratory therapist tried high flow Nasal canula Vitals/I&O Vitals/I&O: Vital Signs Date Time Temp Pulse Resp B/P (MAP) Pulse Ox O2 Delivery O2 Flow Rate FiO2 02/12/19 09:48 82 126/66 02/12/19 08:16 93 High Flow Nasal Cannula 15.0 02/12/19 07:00 97.7 18 97.7 I & O 02/11/19 02/11/19 02/12/19 14:59 22:59 06:59 Intake Total 700 ml Output Total 201 ml Balance 499 ml Physical Exam Physical Exam: GENERAL: The patient is sitting in the chair, alert and watching TV. HEENT: Pupils equally round, reactive. Normal conjunctivae. Oropharynx pink and moist. No lesions seen. NECK: Supple. LUNGS: Diminished aeration in the bases, nonlabored. HEART: S1, S2 regular. ABDOMEN: Nondistended, soft, nontender with bowel sounds present. Austin-Osei button without signs of complications. EXTREMITIES: No gross edema or cyanosis. SKIN: Warm to touch. No signs of rash. NEUROLOGIC: Alert and oriented x 3. General: Alert, Oriented X3, Cooperative, No acute distress Heart: Regular rate, Normal S1, Normal S2 Lungs: Crackles (right lung) Abdomen: Normal bowel sounds, Soft, No tenderness, No hepatosplenomegaly, No masses Extremities: No clubbing, No cyanosis, No edema, Normal pulses, No tenderness/swelling Skin: No rashes, No breakdown, No significant lesion Labs Labs: Laboratory Tests Test 02/12/19 07:25 White Blood Count 9.5 x10^3/uL (4.0-11.0) Red Blood Count 3.98 x10^6/uL (4.30-5.70) Hemoglobin 12.3 g/dL (13.0-17.5) Hematocrit 36.9 % (39.0-53.0) Mean Corpuscular Volume 93 fL (79-100) Mean Corpuscular Hemoglobin 31 pg (25-35) Mean Corpuscular Hemoglobin Concent 33 g/dL (31-37) Red Cell Distribution Width 14.7 % (11.5-14.5) Platelet Count 161 x10^3/uL (140-400) Neutrophils (%) (Auto) 82 % (31-73) Lymphocytes (%) (Auto) 7 % (24-48) Monocytes (%) (Auto) 10 % (0-9) Eosinophils (%) (Auto) 1 % (0-3) Basophils (%) (Auto) 0 % (0-3) Neutrophils # (Auto) 7.8 x10^3/uL (1.8-7.7) Lymphocytes # (Auto) 0.6 x10^3/uL (1.0-4.8) Monocytes # (Auto) 0.9 x10^3/uL (0.0-1.1) Eosinophils # (Auto) 0.1 x10^3/uL (0.0-0.7) Basophils # (Auto) 0.0 x10^3/uL (0.0-0.2) Sodium Level 141 mmol/L (136-145) Potassium Level 3.3 mmol/L (3.5-5.1) Chloride Level 100 mmol/L (98-107) Carbon Dioxide Level 40 mmol/L (21-32) Anion Gap 1 (6-14) Blood Urea Nitrogen 12 mg/dL (8-26) Creatinine 0.5 mg/dL (0.7-1.3) Estimated GFR (Cockcroft-Gault) 165.9 Glucose Level 121 mg/dL (70-99) Calcium Level 8.9 mg/dL (8.5-10.1) Review of Systems Review of Systems: co SOB co weakness Assessment and Plan Assessmemt and Plan Problems Medical Problems: (1) Acute hypoxemic respiratory failure Status: Acute (2) Aspiration pneumonia Status: Acute Assessment Respiratory Distress Aspiration pneumonia CAP CHF Plan IV Abx: Zosyn and vancomycin IV fluids Continue O2 nasal canula if sufficient; otherwise, 100% rebreather PT/OT DVT Prophylaxis Full Code Appreciate subspeciality input Comment Review of Relevant I have reviewed the following items chloe (where applicable) has been applied. Medications: Current Medications Medications (Trade) Dose Ordered Sig/Liliam Route PRN Reason Start Time Stop Time Status Last Admin Dose Admin Vancomycin HCl 1.75 gm/Sodium Chloride 500 ml @ 250 mls/hr Q12H IV 02/11/19 21:00 02/12/19 09:48 Albuterol/ Ipratropium (Duoneb) 3 ml 1X ONCE NEB 02/11/19 14:15 02/11/19 14:16 DC 02/11/19 15:08 Zolpidem Tartrate (Ambien) 5 mg PRN QHS PRN PO INSOMNIA, MAY REPEAT IN 2HR 02/11/19 18:00 02/11/19 21:02 Lorazepam (Ativan) 1 mg HS PO 02/11/19 21:00 02/11/19 21:02 MILLIE RÍOS III DO Feb 12, 2019 11:34
[2019-02-12] MEDS: VANCOMYCIN PER PHARMACY MC PRN (14:57)
[2019-02-12 15:00] VITALS: BP 106/51
--- NOTE | 2019-02-12 16:30 | RAD ---
Single view of the chest. 02/12/2019 10:09 AM Indication: Pneumonia Comparison: Chest radiograph February 09, 2019 Findings: No pneumothorax is identified. Increasing left-sided infiltrate is noted in the interim. Dense right-sided infiltrates are also slightly increased. Heart size appears unchanged. Bony thorax is grossly intact. IMPRESSION: Some interval increase in bilateral pulmonary infiltrates in the interim Electronically signed by: Patricio Howard MD (02/12/2019 4:27 PM) [id number]
--- NOTE | 2019-02-12 17:18 | PDOC2 ---
PALLIATIVE CARE Palliative Care Note Palliative Care Consult requested by Dr. Richardson to address goals of care. Medical Assessment per medical record; Respiratory Distress Aspiration pneumonia CAP CHF Met with patient and ; Deepa. They have children from previous marriages. Patient is awake and alert. Is able to discuss his medical condition accurately. Feeding tube in place Discussed options for care; Continue current aggressive treatment vs comfort care vs limitations to aggressive care. Patient would like to continue with antibiotics and oxygen therapy. Tube feedings. Requests DNR/DNI. Outside the Hospital DNR/DNI form signed by patient Social / Work Hx. Worked at the [employer]; Important to patient. Has good support from family Plan: DNR. DNI. Continue current treatment plan,. Above reviewed with Alexi CARDOSO. Will obtain order to change code status. CALVIN RAMIREZ Feb 12, 2019 17:17
[2019-02-12 19:00] VITALS: BP 106/57
[2019-02-12] MEDS: ATORVASTATIN CALCIUM 40 MG TABLET. PO SCH (20:55)
[2019-02-12] MEDS: LORazepam 1 MG TABLET PO SCH (20:55)
[2019-02-12] MEDS: ENOXAPARIN 40 MG/0.4 ML SYRINGE. SQ SCH (20:56)
[2019-02-12] MEDS: ZOLPIDEM 5 MG TABLET. PO PRN (22:42)
[2019-02-12 23:00] VITALS: BP 106/51
[2019-02-13] MEDS: PIPERACILLIN/TAZOBACTAM 4.5 GM in IV NORMAL SALINE 100ML 100 ML IV SCH ×3 (00:04→12:00)
[2019-02-13] MEDS: ZOLPIDEM 5 MG TABLET. PO PRN (00:57)
[2019-02-13 03:00] VITALS: BP 98/59
[2019-02-13 04:46] LABS: BASO % 0 % (0-3); EOS # 0.1 x10^3/uL (0.0-0.7); EOS % 1 % (0-3); HEMOGLOBIN 11.7 g/dL (13.0-17.5); LYMPH # 0.3 x10^3/uL (1.0-4.8); LYMPH % 3 % (24-48); MEAN CORPUSCULAR HEMOGLOBIN 30 pg (25-35); MEAN CORPUSCULAR HGB CONC 32 g/dL (31-37); MEAN CORPUSCULAR VOLUME 93 fL (79-100); MONO # 1.1 x10^3/uL (0.0-1.1); MONO % 10 % (0-9); NEUT # 9.6 x10^3/uL (1.8-7.7); NEUT % 87 % (31-73); PLATELET COUNT 161 x10^3/uL (140-400); RED BLOOD COUNT 3.86 x10^6/uL (4.30-5.70); RED CELL DISTRIBUTION WIDTH 14.5 % (11.5-14.5); WHITE BLOOD COUNT 11.1 x10^3/uL (4.0-11.0)
[2019-02-13 05:35] LABS: CALCIUM 8.7 mg/dL (8.5-10.1); CREATININE 0.6 mg/dL (0.7-1.3); GFR 134.4; POTASSIUM 3.7 mmol/L (3.5-5.1)
[2019-02-13] MEDS: LEVOTHYROXINE 175 MCG TABLET PO SCH (06:23)
[2019-02-13 07:00] VITALS: BP 117/55
[2019-02-13] MEDS: IPRATRPIUM/ALBUTEROL 0.5/2.5MG 3 ML NEBU. NEB SCH ×3 (07:13→15:42)
[2019-02-13] MEDS: LANSOPRAZOLE 30 MG TAB.RAP.DR FT SCH (07:30)
[2019-02-13 07:56] LABS: % BANDS 22 % (0-9); % EOS 1 % (0-5); % LYMPHS 3 % (24-48); % MONOS 7 % (0-10); % SEGS 67 % (35-66); PLT ESTIMATE ADEQUATE (ADEQUATE)
[2019-02-13] MEDS: CARVEDILOL 12.5 MG TABLET. PO SCH (08:00)
[2019-02-13] MEDS: FUROSEMIDE 20 MG TABLET PO SCH (09:00)
[2019-02-13] MEDS: SERTRALINE 50 MG TABLET. PO SCH (09:00)
[2019-02-13] MEDS: POTASSIUM BICARB 20 MEQ EFFERVESCENT TABLET. PO SCH (09:00)
[2019-02-13] MEDS: amLODIPine BESYLATE 10 MG TABLET PO SCH (09:00)
[2019-02-13] MEDS: POLYETHYLENE GLYCOL 3350 17 GM PACKET. PO SCH (09:00)
--- NOTE | 2019-02-13 09:17 | PDOC ---
PROGRESS NOTES Chief Complaint Chief Complaint Respiratory Distress Aspiration pneumonia, right middle and right lower lung lobe consolidation CAP CHF History of Present Illness History of Present Illness Mr Olivo is a 68 yo M w/ PMHx tongue cancer status post chemoradiation in 2008 and maintained on tube feedings. Prior to admission after a bolus feed, he felt too tired to stay up and instead went to sleep, lying flat. He woke up with reflux and about an hour later had trouble breathing. He said he could not catch his breath. His oxygen saturations dropped to 75%. He has home oxygen as needed and applied 4 liters with minimal improvement. He was initially evaluated at [facility] Emergency Room. He was afebrile with a normal white blood cell count, lactic acid 1.7. Chest x-ray showed consolidative infiltrate within the right mid and lower lung zone. Stable left lung base infiltrate. He was dosed with Unasyn before transferring down to [place]. CXR worsened yesterday, was on humidified mask, seen with O2 saturations 98%. He does not feel much better. Have discussed with he and his spouse bedside that his pulmonary recovery may be prolonged and that slow TF rather than bolus would be helpful. He feels more short of breath. No CP or abdominal pain. Wishes to eat right now. Plan: Will get repeat CXR, ABG Have d/w Pulmonology to make LTAC referral based on his comorbidities he would do better to recover in LTAC environment given his pulmonay status and recurrent aspirations. 02/12/19 Pt seen and examined at bedside Pt currently on NC 10.0 L and sating at 95% TAWANA RN Pt will be meeting with palliative care team later today 02/11/19 Pt sitting and breathing on 100% rebreather; sat-ing at 95% DW RN DW TAWANA GILLIAM Respiratory therapist Nurse reports that overnight he tried O2 by nasal canula, but O2 dropped to 87% Respiratory therapist tried high flow Nasal canula Vitals Vitals Vital Signs Date Time Temp Pulse Resp B/P (MAP) Pulse Ox O2 Delivery O2 Flow Rate FiO2 02/13/19 07:13 88 NonRebreather Mask 15.0 02/13/19 07:00 97.7 80 20 117/55 (75) 97.7 Physical Exam Physical Exam GENERAL: The patient is sitting in the chair, alert and watching TV. HEENT: Pupils equally round, reactive. Normal conjunctivae. Oropharynx pink and moist. No lesions seen. NECK: Supple. LUNGS: Diminished aeration in the bases, nonlabored. HEART: S1, S2 regular. ABDOMEN: Nondistended, soft, nontender with bowel sounds present. Austin-Osei button without signs of complications. EXTREMITIES: No gross edema or cyanosis. SKIN: Warm to touch. No signs of rash. NEUROLOGIC: Alert and oriented x 3. General: Alert, Oriented X3, Cooperative, No acute distress Heart: Regular rate, Normal S1, Normal S2 Lungs: Crackles (right lung) Abdomen: Normal bowel sounds, Soft, No tenderness, No hepatosplenomegaly, No masses Extremities: No clubbing, No cyanosis, No edema, Normal pulses, No tenderness/swelling Skin: No rashes, No breakdown, No significant lesion Labs LABS Laboratory Tests Test 02/13/19 04:30 02/13/19 08:14 White Blood Count 11.1 x10^3/uL (4.0-11.0) Red Blood Count 3.86 x10^6/uL (4.30-5.70) Hemoglobin 11.7 g/dL (13.0-17.5) Hematocrit 36.0 % (39.0-53.0) Mean Corpuscular Volume 93 fL (79-100) Mean Corpuscular Hemoglobin 30 pg (25-35) Mean Corpuscular Hemoglobin Concent 32 g/dL (31-37) Red Cell Distribution Width 14.5 % (11.5-14.5) Platelet Count 161 x10^3/uL (140-400) Neutrophils (%) (Auto) 87 % (31-73) Lymphocytes (%) (Auto) 3 % (24-48) Monocytes (%) (Auto) 10 % (0-9) Eosinophils (%) (Auto) 1 % (0-3) Basophils (%) (Auto) 0 % (0-3) Neutrophils # (Auto) 9.6 x10^3/uL (1.8-7.7) Lymphocytes # (Auto) 0.3 x10^3/uL (1.0-4.8) Monocytes # (Auto) 1.1 x10^3/uL (0.0-1.1) Eosinophils # (Auto) 0.1 x10^3/uL (0.0-0.7) Basophils # (Auto) 0.0 x10^3/uL (0.0-0.2) Segmented Neutrophils % 67 % (35-66) Band Neutrophils % 22 % (0-9) Lymphocytes % 3 % (24-48) Monocytes % 7 % (0-10) Eosinophils % 1 % (0-5) Platelet Estimate Adequate (ADEQUATE) Sodium Level 141 mmol/L (136-145) Potassium Level 3.7 mmol/L (3.5-5.1) Chloride Level 100 mmol/L (98-107) Carbon Dioxide Level 41 mmol/L (21-32) Anion Gap 0 (6-14) Blood Urea Nitrogen 15 mg/dL (8-26) Creatinine 0.6 mg/dL (0.7-1.3) Estimated GFR (Cockcroft-Gault) 134.4 Glucose Level 176 mg/dL (70-99) Calcium Level 8.7 mg/dL (8.5-10.1) Glucose (Fingerstick) 134 mg/dL (70-99) Assessment and Plan Assessmemt and Plan Problems Medical Problems: (1) Acute hypoxemic respiratory failure Status: Acute (2) Aspiration pneumonia Status: Acute Comment Review of Relevant I have reviewed the following items chloe (where applicable) has been applied. Labs Laboratory Tests Test 02/12/19 07:25 02/13/19 04:30 02/13/19 08:14 White Blood Count 9.5 x10^3/uL (4.0-11.0) 11.1 x10^3/uL (4.0-11.0) Red Blood Count 3.98 x10^6/uL (4.30-5.70) 3.86 x10^6/uL (4.30-5.70) Hemoglobin 12.3 g/dL (13.0-17.5) 11.7 g/dL (13.0-17.5) Hematocrit 36.9 % (39.0-53.0) 36.0 % (39.0-53.0) Mean Corpuscular Volume 93 fL (79-100) 93 fL (79-100) Mean Corpuscular Hemoglobin 31 pg (25-35) 30 pg (25-35) Mean Corpuscular Hemoglobin Concent 33 g/dL (31-37) 32 g/dL (31-37) Red Cell Distribution Width 14.7 % (11.5-14.5) 14.5 % (11.5-14.5) Platelet Count 161 x10^3/uL (140-400) 161 x10^3/uL (140-400) Neutrophils (%) (Auto) 82 % (31-73) 87 % (31-73) Lymphocytes (%) (Auto) 7 % (24-48) 3 % (24-48) Monocytes (%) (Auto) 10 % (0-9) 10 % (0-9) Eosinophils (%) (Auto) 1 % (0-3) 1 % (0-3) Basophils (%) (Auto) 0 % (0-3) 0 % (0-3) Neutrophils # (Auto) 7.8 x10^3/uL (1.8-7.7) 9.6 x10^3/uL (1.8-7.7) Lymphocytes # (Auto) 0.6 x10^3/uL (1.0-4.8) 0.3 x10^3/uL (1.0-4.8) Monocytes # (Auto) 0.9 x10^3/uL (0.0-1.1) 1.1 x10^3/uL (0.0-1.1) Eosinophils # (Auto) 0.1 x10^3/uL (0.0-0.7) 0.1 x10^3/uL (0.0-0.7) Basophils # (Auto) 0.0 x10^3/uL (0.0-0.2) 0.0 x10^3/uL (0.0-0.2) Sodium Level 141 mmol/L (136-145) 141 mmol/L (136-145) Potassium Level 3.3 mmol/L (3.5-5.1) 3.7 mmol/L (3.5-5.1) Chloride Level 100 mmol/L (98-107) 100 mmol/L (98-107) Carbon Dioxide Level 40 mmol/L (21-32) 41 mmol/L (21-32) Anion Gap 1 (6-14) 0 (6-14) Blood Urea Nitrogen 12 mg/dL (8-26) 15 mg/dL (8-26) Creatinine 0.5 mg/dL (0.7-1.3) 0.6 mg/dL (0.7-1.3) Estimated GFR (Cockcroft-Gault) 165.9 134.4 Glucose Level 121 mg/dL (70-99) 176 mg/dL (70-99) Calcium Level 8.9 mg/dL (8.5-10.1) 8.7 mg/dL (8.5-10.1) Segmented Neutrophils % 67 % (35-66) Band Neutrophils % 22 % (0-9) Lymphocytes % 3 % (24-48) Monocytes % 7 % (0-10) Eosinophils % 1 % (0-5) Platelet Estimate Adequate (ADEQUATE) Glucose (Fingerstick) 134 mg/dL (70-99) Laboratory Tests Test 02/13/19 04:30 02/13/19 08:14 White Blood Count 11.1 x10^3/uL (4.0-11.0) Red Blood Count 3.86 x10^6/uL (4.30-5.70) Hemoglobin 11.7 g/dL (13.0-17.5) Hematocrit 36.0 % (39.0-53.0) Mean Corpuscular Volume 93 fL (79-100) Mean Corpuscular Hemoglobin 30 pg (25-35) Mean Corpuscular Hemoglobin Concent 32 g/dL (31-37) Red Cell Distribution Width 14.5 % (11.5-14.5) Platelet Count 161 x10^3/uL (140-400) Neutrophils (%) (Auto) 87 % (31-73) Lymphocytes (%) (Auto) 3 % (24-48) Monocytes (%) (Auto) 10 % (0-9) Eosinophils (%) (Auto) 1 % (0-3) Basophils (%) (Auto) 0 % (0-3) Neutrophils # (Auto) 9.6 x10^3/uL (1.8-7.7) Lymphocytes # (Auto) 0.3 x10^3/uL (1.0-4.8) Monocytes # (Auto) 1.1 x10^3/uL (0.0-1.1) Eosinophils # (Auto) 0.1 x10^3/uL (0.0-0.7) Basophils # (Auto) 0.0 x10^3/uL (0.0-0.2) Segmented Neutrophils % 67 % (35-66) Band Neutrophils % 22 % (0-9) Lymphocytes % 3 % (24-48) Monocytes % 7 % (0-10) Eosinophils % 1 % (0-5) Platelet Estimate Adequate (ADEQUATE) Sodium Level 141 mmol/L (136-145) Potassium Level 3.7 mmol/L (3.5-5.1) Chloride Level 100 mmol/L (98-107) Carbon Dioxide Level 41 mmol/L (21-32) Anion Gap 0 (6-14) Blood Urea Nitrogen 15 mg/dL (8-26) Creatinine 0.6 mg/dL (0.7-1.3) Estimated GFR (Cockcroft-Gault) 134.4 Glucose Level 176 mg/dL (70-99) Calcium Level 8.7 mg/dL (8.5-10.1) Glucose (Fingerstick) 134 mg/dL (70-99) Microbiology 02/10/19 - Final, Resulted 02/10/19 - Final, Resulted 02/10/19 - Final, Resulted 02/10/19 Gram Stain Evaluation - Final, Resulted 02/10/19 Sputum Culture, Resulted Pending Medications Current Medications Acetaminophen (Tylenol) 650 mg PRN Q6HRS PRN PO Headaches, Temp > 101.5' Last a dministered on 02/10/19at 01:19; Start 02/07/19 at 18:00 Lorazepam (Ativan) 1 mg PRN Q6HRS PRN PO ANXIETY / AGITATION Last administered on 02/08/19at 13:55; Start 02/07/19 at 18:00; Stop 02/09/19 at 11:17; Status DC Ondansetron HCl (Zofran) 4 mg PRN Q6HRS PRN IV NAUSEA/VOMITING; Start 02/07/19 at 18:00 Calcium Carbonate/ Glycine (Tums) 500 mg PRN Q3HRS PRN PO HEARTBURN / GAS; Sta rt 02/07/19 at 18:00 Zolpidem Tartrate (Ambien) 5 mg PRN QHS PRN PO INSOMNIA, MAY REPEAT IN 1HR Last administered on 02/10/19at 23:16; Start 02/07/19 at 18:00; Stop 02/11/19 at 18:00; Status DC Enoxaparin Sodium (Lovenox 40mg Syringe) 40 mg Q24H SQ Last administered on 02/12/19at 21:02; Start 02/07/19 at 21:00 Sodium Chloride (Normal Saline Flush) 3 ml QSHIFT PRN IV AFTER MEDS AND BLOOD DRAWS; Start 02/07/19 at 18:00 Fentanyl Citrate (Fentanyl 2ml Vial) 50 mcg PRN Q2HR PRN IV PAIN; Start 02/07/19 at 18:00; Stop 02/09/19 at 11:17; Status DC Tramadol HCl (Ultram) 50 mg PRN Q6HRS PRN PO MODERATE PAIN; Start 02/07/19 at 18:00 Pantoprazole Sodium (Protonix) 40 mg DAILYAC PO ; Start 02/08/19 at 07:30; Stop 02/09/19 at 10:09; Status DC Amlodipine Besylate (Norvasc) 10 mg DAILY PO Last administered on 02/12/19at 09:48; Start 02/08/19 at 09:00 Aspirin (Children'S Aspirin) 81 mg DAILY PO ; Start 02/08/19 at 09:00; Stop 02/07/19 at 18:25; Status DC Carvedilol (Coreg) 12.5 mg BIDWMEALS PO Last administered on 02/12/19at 09:48; Start 02/07/19 at 18:30 Ferrous Sulfate (Feosol) 325 mg DAILYWBKFT PO ; Start 02/08/19 at 08:00; Stop 02/07/19 at 18:25; Status DC Furosemide (Lasix) 20 mg DAILY PO Last administered on 02/12/19at 09:48; Start 02/08/19 at 09:00 Levothyroxine Sodium (Synthroid) 175 mcg DAILY06 PO Last administered on 02/13/19at 06:24; Start 02/08/19 at 06:00 Lorazepam (Ativan) 1 mg BID PO Last administered on 02/09/19at 08:29; Start 02/07/19 at 21:00; Stop 02/09/19 at 11:18; Status DC Pilocarpine HCl (Salagen) 5 mg BID PO ; Start 02/07/19 at 21:00; Stop 02/07/19 at 18:36; Status DC Polyethylene Glycol (miraLAX PACKET) 17 gm DAILY PO Last administered on 02/12/19 09:48; Start 02/08/19 at 09:00 Potassium Chloride (Klor-Con) 10 meq DAILY PO Last administered on 02/08/19 09:15; Start 02/08/19 at 09:00; Stop 02/09/19 at 08:21; Status DC Non-Formulary Medication (Atorvastatin Calcium ) 1 tab DAILY PO ; Start 02/08/19 at 09:00; Status UNV Sertraline HCl (Zoloft) 100 mg DAILY PO Last administered on 02/12/19 09:48; Start 02/08/19 at 09:00 Vancomycin HCl (Vanco Per Pharmacy) 1 each PRN DAILY PRN MC SEE COMMENTS Last administered on 02/12/19 14:57; Start 02/07/19 at 18:00 Piperacillin Sod/ Tazobactam Sod (Zosyn Per Pharmacy) 1 each PRN DAILY PRN MC SEE COMMENTS; Start 02/07/19 at 18:00 Sodium Chloride 1,000 ml @ 100 mls/hr Q10H IV Last administered on 02/08/19 06:24; Start 02/07/19 at 18:30; Stop 02/08/19 at 08:40; Status DC Atorvastatin Calcium (Lipitor) 80 mg QHS PO Last administered on 02/12/19 21:02; Start 02/07/19 at 21:00 Vancomycin HCl 2 gm/Sodium Chloride 500 ml @ 250 mls/hr 1X ONCE IV Last administered on 02/07/19 20:18; Start 02/07/19 at 20:00; Stop 02/07/19 at 21:59; Status DC Piperacillin Sod/ Tazobactam Sod 3.375 gm/Dextrose 50 ml @ 100 mls/hr 1X ONCE IV Last administered on 02/07/19 18:43; Start 02/07/19 at 18:30; Stop 02/07/19 at 18:59; Status DC Albuterol/ Ipratropium (Duoneb) 3 ml RTQID NEB Last administered on 02/13/19 07:13; Start 02/07/19 at 20:00 Piperacillin Sod/ Tazobactam Sod 4.5 gm/Sodium Chloride 100 ml @ 200 mls/hr Q6HRS IV Last administered on 02/13/19at 06:24; Start 02/08/19 at 06:00 Vancomycin HCl 1.25 gm/Sodium Chloride 250 ml @ 167 mls/hr Q12H IV Last administered on 02/09/19at 09:21; Start 02/08/19 at 08:00; Stop 02/09/19 at 14:00; Status DC Vancomycin HCl (Vancomycin Trough Level) 1 each 1X ONCE MC ; Start 02/09/19 at 07:30; Stop 02/09/19 at 07:31; Status Cancel Potassium Bicarbonate (Potassium Effervescent Tablet) 10 meq DAILY PO Last administered on 02/12/19at 09:48; Start 02/09/19 at 09:00 Vancomycin HCl 1.5 gm/Sodium Chloride 500 ml @ 250 mls/hr Q12H IV Last administered on 02/11/19at 09:10; Start 02/09/19 at 21:00; Stop 02/11/19 at 12:00; Status DC Vancomycin HCl (Vancomycin Trough Level) 1 each 1X ONCE MC Last administered on 02/11/19at 09:10; Start 02/11/19 at 08:30; Stop 02/11/19 at 08:31; Status DC Lansoprazole (Prevacid) 30 mg DAILYAC FT Last administered on 02/12/19at 09:48; Start 02/09/19 at 10:30 Fentanyl Citrate (Fentanyl 2ml Vial) 25 mcg PRN Q2HR PRN IV PAIN; Start 02/09/19 at 11:30 Lorazepam (Ativan) 0.25 mg PRN Q6HRS PRN PO ANXIETY / AGITATION; Start 02/09/19 at 11:30; Stop 02/09/19 at 11:22; Status DC Lorazepam (Ativan) 0.25 mg PRN Q6HRS PRN PO ANXIETY / AGITATION Last administered on 02/10/19at 23:16; Start 02/09/19 at 11:30; Stop 02/11/19 at 18:00; Status DC Iohexol (Omnipaque 300 Mg/ml) 75 ml 1X ONCE IV ; Start 02/10/19 at 08:30; Stop 02/10/19 at 08:31; Status DC Info (CONTRAST GIVEN -- Rx MONITORING) 1 each PRN DAILY PRN MC SEE COMMENTS; Start 02/10/19 at 08:30; Stop 02/10/19 at 16:48; Status DC Iohexol (Omnipaque 300 Mg/ml) 75 ml 1X ONCE IV Last administered on 02/10/19at 17:28; Start 02/10/19 at 17:00; Stop 02/10/19 at 17:01; Status DC Info (CONTRAST GIVEN -- Rx MONITORING) 1 each PRN DAILY PRN MC SEE COMMENTS; Start 02/10/19 at 17:00; Stop 02/12/19 at 16:59; Status DC Vancomycin HCl 1.75 gm/Sodium Chloride 500 ml @ 250 mls/hr Q12H IV Last administered on 02/12/19at 21:02; Start 02/11/19 at 21:00 Albuterol/ Ipratropium (Duoneb) 3 ml 1X ONCE NEB Last administered on 02/11/19at 15:08; Start 02/11/19 at 14:15; Stop 02/11/19 at 14:16; Status DC Lorazepam (Ativan) 1 mg HS PO ; Start 02/11/19 at 18:00; Status Cancel Zolpidem Tartrate (Ambien) 5 mg PRN QHS PRN PO INSOMNIA, MAY REPEAT IN 2HR Last administered on 02/13/19at 00:57; Start 02/11/19 at 18:00 Lorazepam (Ativan) 1 mg HS PO Last administered on 02/12/19at 21:02; Start 02/11/19 at 21:00 Active Scripts Active Reported Rosuvastatin Calcium 40 Mg Tablet 40 Mg PO HS Zolpidem Tartrate 10 Mg Tablet 1 Tab PO QHS Zoloft (Sertraline Hcl) 100 Mg Tablet 1 Tab PO DAILY Potassium Chloride 10 Meq Capsule.er 10 Meq PO DAILY Miralax (Polyethylene Glycol 3350) 17 Gm Powd.pack 1 Packet PO DAILY Lorazepam 1 Mg Tablet 1 Tab PO BID Levothyroxine Sodium 175 Mcg Tablet 1 Tab PO DAILY Furosemide 20 Mg Tablet 1 Tab PO DAILY Carvedilol (Carvedilol) 12.5 Mg Tablet 1 Tab PO BID Amlodipine Besylate 10 Mg Tablet 10 Mg PO DAILY Vitals/I & O Vital Sign - Last 24 Hours 02/12/19 02/12/19 02/12/19 02/12/19 09:48 09:48 11:00 12:00 Temp 97.8 97.8 Pulse 82 82 74 Resp 20 B/P (MAP) 126/66 126/66 126/66 (86) Pulse Ox 91 91 O2 Delivery Nasal Cannula High Flow Nasal Cannula O2 Flow Rate 10.0 15.0 02/12/19 02/12/19 02/12/19 02/12/19 15:00 16:26 18:52 19:00 Temp 97.9 98.1 97.9 98.1 Pulse 70 56 72 Resp 19 19 B/P (MAP) 106/51 (69) 110/59 106/57 (73) Pulse Ox 88 90 O2 Delivery Nasal Cannula High Flow Nasal Cannula Nasal Cannula O2 Flow Rate 10.0 15.0 10.0 02/12/19 02/12/19 02/12/19 02/13/19 20:00 20:40 23:00 03:00 Pulse 76 75 Resp 20 22 B/P (MAP) 106/51 (69) 98/59 (72) Pulse Ox 85 85 O2 Delivery Nasal Cannula High Flow Nasal Cannula Nasal Cannula NonRebreather Mask O2 Flow Rate 12.0 15.0 10.0 10.0 02/13/19 02/13/19 07:00 07:13 Temp 97.7 97.7 Pulse 80 Resp 20 B/P (MAP) 117/55 (75) Pulse Ox 90 88 O2 Delivery Nasal Cannula NonRebreather Mask O2 Flow Rate 15.0 15.0 Intake and Output 02/12/19 02/12/19 02/13/19 15:00 23:00 07:00 Intake Total 600 ml 500 ml Balance 600 ml 500 ml Nutrition Consultation Dietary Evaluation: Recommendations by RD: Increase Calorie Intake Comments: REC Jevity 1.5 bolus 8 cans/day, feed 4x/day (2 cans/feeding) w/min of 150 ml water flush w/each feeding Expected Outcomes/Goals: TF infusion to meet >75% est needs Malnutrition Findings: Weight Status: Appropriate JAIR VO MD Feb 13, 2019 09:17
--- NOTE | 2019-02-13 09:47 | NUR ---
SW following pt. Discussed with RN and Physician, Pt will benefit from LTAC eval. SW phoned and faxed referral to [facility]. Pt acceptance and admission pending. Will continue to follow.
--- NOTE | 2019-02-13 10:00 | RAD ---
Single view of the chest. 02/13/2019 9:22 AM Indication: Infiltrates. Increasing hypoxia. Comparison: Chest radiograph yesterday Findings: There is mild interval worsening of bilateral infiltrates, now more dense in the left upper lung, and throughout the right lung. Component of right-sided volume loss may be present as indicated by rightward mediastinal shift. No acute osseous changes in the interim. No pneumothorax. IMPRESSION: Interval worsening of bilateral infiltrates as described. Electronically signed by: Patricio Howard MD (02/13/2019 9:57 AM) [id number]
[2019-02-13 10:22] LABS: BASE EXCESS ABG 12 mmol/L (-3-3); HCO3 ABG 41 mmol/L (21-28); PO2 ABG 52 mmHg (65-108); SAT O2 ABG 87 % (92-99)
[2019-02-13 10:24] LABS: FIO2 ABG 100; PCO2 ABG 83 mmHg (35-46)
[2019-02-13 11:00] VITALS: BP 115/67
--- NOTE | 2019-02-13 11:34 | SNU/HH DC ---
DISCHARGE ORDERS DISCHARGE INFORMATION: DISCHARGE DATE: Feb 13, 2019 FINAL DIAGNOSIS Problems Medical Problems: (1) Acute hypoxemic respiratory failure Status: Acute (2) Aspiration pneumonia Status: Acute CONDITION ON DISCHARGE: Stable CODE STATUS: Code Status: DNR/DNI LTAC: ADMIT TO LTAC: Yes POST DISCHARGE ORDERS: ACTIVITY ORDERS: No restrictions, Resume previous activity, Activity as tolerated WEIGHT BEARING STATUS: No restrictions, As tolerated DIET AFTER DISCHARGE: Tube feeds 10cc/hr jevity, 100cc q4 hrs free water bolus CHECKS AFTER DISCHARGE: CHECKS AFTER DISCHARGE: Check blood press - daily, Check your Temp as needed FOLLOW-UP: PHYSICIAN FOLLOW-UP: Pulmonology, ID TREATMENT/EQUIPMENT ORDERS: INFUSION EQUIPMENT NEEDED: Feeding Tube RESPIRATORY EQUIPMENT NEEDED: BiPAP Physical Therapy For: Evalulation/Treatment Occupational Therapy For: Evaluation/Treatment Speech Language Pathology For: Evaluation/Treatment DISCHARGE MEDICATIONS: Home Meds Reported Medications Rosuvastatin Calcium (Rosuvastatin Calcium) 40 Mg Tablet, 40 MG PO HS for cholesterol, TAB 02/07/19 Zolpidem Tartrate (ZOLPIDEM TARTRATE) 10 Mg Tablet, 1 TAB PO QHS, #30 TAB 2 Refills 07/10/16 Sertraline Hcl (ZOLOFT) 100 Mg Tablet, 1 TAB PO DAILY, #30 TAB 5 Refills 07/10/16 Potassium Chloride (POTASSIUM CHLORIDE) 10 Meq Capsule.er, 10 MEQ PO DAILY, TAB.SR 07/10/16 Polyethylene Glycol 3350 (MIRALAX) 17 Gm Powd.pack, 1 PACKET PO DAILY, #30 PACKET 3 Refills 07/10/16 Lorazepam (LORAZEPAM) 1 Mg Tablet, 1 TAB PO BID, #60 TAB 07/10/16 Levothyroxine Sodium (LEVOTHYROXINE SODIUM) 175 Mcg Tablet, 1 TAB PO DAILY, #30 TAB 5 Refills 07/10/16 Furosemide (FUROSEMIDE) 20 Mg Tablet, 1 TAB PO DAILY, #90 TAB 1 Refill 07/10/16 Carvedilol (CARVEDILOL ) 12.5 Mg Tablet, 1 TAB PO BID, #180 TAB 1 Refill 07/10/16 Amlodipine Besylate (AMLODIPINE BESYLATE) 10 Mg Tablet, 10 MG PO DAILY, TAB 07/10/16 Discontinued Reported Medications Acyclovir (ACYCLOVIR) 200 Mg Capsule, 1 CAP PO 5XDAY, #25 CAP 07/10/16 Pilocarpine Hcl (PILOCARPINE HCL) 5 Mg Tablet, 5 MG PO BID 07/10/16 Ferrous Sulfate (FERROUS SULFATE) 325 Mg Tablet, 1 TAB PO DAILY, #30 TAB 3 Refills 07/10/16 Atorvastatin Calcium (ATORVASTATIN CALCIUM) 80 Mg Tablet, 1 TAB PO DAILY, #30 TAB 5 Refills 07/10/16 Aspirin (ASPIRIN) 81 Mg Tab.chew, 1 TAB PO DAILY, #30 TAB 3 Refills 07/10/16 JAIR VO MD Feb 13, 2019 11:34
--- NOTE | 2019-02-13 11:44 | PDOC ---
Infectious Disease Note Subjective Subjective on bipap ROS ROS no n/v/d/ Vital Sign Vital Signs Vital Signs Date Time Temp Pulse Resp B/P (MAP) Pulse Ox O2 Delivery O2 Flow Rate FiO2 02/13/19 11:06 90 BiPAP/CPAP 02/13/19 07:13 15.0 02/13/19 07:00 97.7 80 20 117/55 (75) 97.7 Physical Exam PHYSICAL EXAM GENERAL: The patient is sitting in the chair, alert and watching TV. HEENT: Pupils equally round, reactive. Normal conjunctivae. Oropharynx pink and moist. No lesions seen. NECK: Supple. LUNGS: Diminished aeration in the bases, nonlabored. HEART: S1, S2 regular. ABDOMEN: Nondistended, soft, nontender with bowel sounds present. Austin-Osei button without signs of complications. EXTREMITIES: No gross edema or cyanosis. SKIN: Warm to touch. No signs of rash. NEUROLOGIC: Alert and oriented x 3. Labs Lab Laboratory Tests Test 02/13/19 04:30 02/13/19 08:14 02/13/19 10:00 White Blood Count 11.1 x10^3/uL (4.0-11.0) Red Blood Count 3.86 x10^6/uL (4.30-5.70) Hemoglobin 11.7 g/dL (13.0-17.5) Hematocrit 36.0 % (39.0-53.0) Mean Corpuscular Volume 93 fL (79-100) Mean Corpuscular Hemoglobin 30 pg (25-35) Mean Corpuscular Hemoglobin Concent 32 g/dL (31-37) Red Cell Distribution Width 14.5 % (11.5-14.5) Platelet Count 161 x10^3/uL (140-400) Neutrophils (%) (Auto) 87 % (31-73) Lymphocytes (%) (Auto) 3 % (24-48) Monocytes (%) (Auto) 10 % (0-9) Eosinophils (%) (Auto) 1 % (0-3) Basophils (%) (Auto) 0 % (0-3) Neutrophils # (Auto) 9.6 x10^3/uL (1.8-7.7) Lymphocytes # (Auto) 0.3 x10^3/uL (1.0-4.8) Monocytes # (Auto) 1.1 x10^3/uL (0.0-1.1) Eosinophils # (Auto) 0.1 x10^3/uL (0.0-0.7) Basophils # (Auto) 0.0 x10^3/uL (0.0-0.2) Segmented Neutrophils % 67 % (35-66) Band Neutrophils % 22 % (0-9) Lymphocytes % 3 % (24-48) Monocytes % 7 % (0-10) Eosinophils % 1 % (0-5) Platelet Estimate Adequate (ADEQUATE) Sodium Level 141 mmol/L (136-145) Potassium Level 3.7 mmol/L (3.5-5.1) Chloride Level 100 mmol/L (98-107) Carbon Dioxide Level 41 mmol/L (21-32) Anion Gap 0 (6-14) Blood Urea Nitrogen 15 mg/dL (8-26) Creatinine 0.6 mg/dL (0.7-1.3) Estimated GFR (Cockcroft-Gault) 134.4 Glucose Level 176 mg/dL (70-99) Calcium Level 8.7 mg/dL (8.5-10.1) Glucose (Fingerstick) 134 mg/dL (70-99) O2 Saturation 87 % (92-99) Arterial Blood pH 7.32 (7.35-7.45) Arterial Blood pCO2 at Patient Temp 83 mmHg (35-46) Arterial Blood pO2 at Patient Temp 52 mmHg (65-108) Arterial Blood HCO3 41 mmol/L (21-28) Arterial Blood Base Excess 12 mmol/L (-3-3) FiO2 100 Micro Microbiology 02/10/19 - Final, Resulted 02/10/19 - Final, Resulted 02/10/19 - Final, Resulted 02/10/19 Gram Stain Evaluation - Final, Resulted 02/10/19 Sputum Culture, Resulted Pending Objective Assessment 1. Aspiration pneumonia. 2. Dysphagia maintained on tube feedings. 3. Cipro allergy/intolerance with renal failure. 4. Anemia. 5. History of tongue cancer status post chemoradiation in 2008. 6. Obstructive sleep apnea. 7. History of Klebsiella, methicillin-susceptible Staphylococcus aureus, and group B Streptococcus in sputum. Plan Plan of Care Continue Zosyn change vanc to zyvox Monitor renal function closely Sputum culture Maintain aspiration precautions d/w and CLIFF Donahue MD Feb 13, 2019 11:44
--- NOTE | 2019-02-13 12:08 | PDOC ---
PULMONARY PROGRESS NOTES Subjective REMAINS ON 15 LITRES CANULA LOW SATS TODAY Vitals Vital Signs Date Time Temp Pulse Resp B/P (MAP) Pulse Ox O2 Delivery O2 Flow Rate FiO2 02/13/19 11:06 90 BiPAP/CPAP 02/13/19 07:13 15.0 02/13/19 07:00 97.7 80 20 117/55 (75) 97.7 ROS: No Nausea, No Chest Pain, No Abdominal Pain, No Increase Cough General: Alert HEENT: Other (NO JVD) Lungs: Crackles (right lung) Cardiovascular: S1, S2 Abdomen: Soft, Non-tender Neuro Exam: Alert Extremities: No Edema Skin: Warm Labs Laboratory Tests Test 02/12/19 07:25 02/13/19 04:30 02/13/19 08:14 02/13/19 10:00 White Blood Count 9.5 x10^3/uL (4.0-11.0) 11.1 x10^3/uL (4.0-11.0) Red Blood Count 3.98 x10^6/uL (4.30-5.70) 3.86 x10^6/uL (4.30-5.70) Hemoglobin 12.3 g/dL (13.0-17.5) 11.7 g/dL (13.0-17.5) Hematocrit 36.9 % (39.0-53.0) 36.0 % (39.0-53.0) Mean Corpuscular Volume 93 fL (79-100) 93 fL (79-100) Mean Corpuscular Hemoglobin 31 pg (25-35) 30 pg (25-35) Mean Corpuscular Hemoglobin Concent 33 g/dL (31-37) 32 g/dL (31-37) Red Cell Distribution Width 14.7 % (11.5-14.5) 14.5 % (11.5-14.5) Platelet Count 161 x10^3/uL (140-400) 161 x10^3/uL (140-400) Neutrophils (%) (Auto) 82 % (31-73) 87 % (31-73) Lymphocytes (%) (Auto) 7 % (24-48) 3 % (24-48) Monocytes (%) (Auto) 10 % (0-9) 10 % (0-9) Eosinophils (%) (Auto) 1 % (0-3) 1 % (0-3) Basophils (%) (Auto) 0 % (0-3) 0 % (0-3) Neutrophils # (Auto) 7.8 x10^3/uL (1.8-7.7) 9.6 x10^3/uL (1.8-7.7) Lymphocytes # (Auto) 0.6 x10^3/uL (1.0-4.8) 0.3 x10^3/uL (1.0-4.8) Monocytes # (Auto) 0.9 x10^3/uL (0.0-1.1) 1.1 x10^3/uL (0.0-1.1) Eosinophils # (Auto) 0.1 x10^3/uL (0.0-0.7) 0.1 x10^3/uL (0.0-0.7) Basophils # (Auto) 0.0 x10^3/uL (0.0-0.2) 0.0 x10^3/uL (0.0-0.2) Sodium Level 141 mmol/L (136-145) 141 mmol/L (136-145) Potassium Level 3.3 mmol/L (3.5-5.1) 3.7 mmol/L (3.5-5.1) Chloride Level 100 mmol/L (98-107) 100 mmol/L (98-107) Carbon Dioxide Level 40 mmol/L (21-32) 41 mmol/L (21-32) Anion Gap 1 (6-14) 0 (6-14) Blood Urea Nitrogen 12 mg/dL (8-26) 15 mg/dL (8-26) Creatinine 0.5 mg/dL (0.7-1.3) 0.6 mg/dL (0.7-1.3) Estimated GFR (Cockcroft-Gault) 165.9 134.4 Glucose Level 121 mg/dL (70-99) 176 mg/dL (70-99) Calcium Level 8.9 mg/dL (8.5-10.1) 8.7 mg/dL (8.5-10.1) Segmented Neutrophils % 67 % (35-66) Band Neutrophils % 22 % (0-9) Lymphocytes % 3 % (24-48) Monocytes % 7 % (0-10) Eosinophils % 1 % (0-5) Platelet Estimate Adequate (ADEQUATE) Glucose (Fingerstick) 134 mg/dL (70-99) O2 Saturation 87 % (92-99) Arterial Blood pH 7.32 (7.35-7.45) Arterial Blood pCO2 at Patient Temp 83 mmHg (35-46) Arterial Blood pO2 at Patient Temp 52 mmHg (65-108) Arterial Blood HCO3 41 mmol/L (21-28) Arterial Blood Base Excess 12 mmol/L (-3-3) FiO2 100 Laboratory Tests Test 02/13/19 04:30 02/13/19 08:14 02/13/19 10:00 White Blood Count 11.1 x10^3/uL (4.0-11.0) Red Blood Count 3.86 x10^6/uL (4.30-5.70) Hemoglobin 11.7 g/dL (13.0-17.5) Hematocrit 36.0 % (39.0-53.0) Mean Corpuscular Volume 93 fL (79-100) Mean Corpuscular Hemoglobin 30 pg (25-35) Mean Corpuscular Hemoglobin Concent 32 g/dL (31-37) Red Cell Distribution Width 14.5 % (11.5-14.5) Platelet Count 161 x10^3/uL (140-400) Neutrophils (%) (Auto) 87 % (31-73) Lymphocytes (%) (Auto) 3 % (24-48) Monocytes (%) (Auto) 10 % (0-9) Eosinophils (%) (Auto) 1 % (0-3) Basophils (%) (Auto) 0 % (0-3) Neutrophils # (Auto) 9.6 x10^3/uL (1.8-7.7) Lymphocytes # (Auto) 0.3 x10^3/uL (1.0-4.8) Monocytes # (Auto) 1.1 x10^3/uL (0.0-1.1) Eosinophils # (Auto) 0.1 x10^3/uL (0.0-0.7) Basophils # (Auto) 0.0 x10^3/uL (0.0-0.2) Segmented Neutrophils % 67 % (35-66) Band Neutrophils % 22 % (0-9) Lymphocytes % 3 % (24-48) Monocytes % 7 % (0-10) Eosinophils % 1 % (0-5) Platelet Estimate Adequate (ADEQUATE) Sodium Level 141 mmol/L (136-145) Potassium Level 3.7 mmol/L (3.5-5.1) Chloride Level 100 mmol/L (98-107) Carbon Dioxide Level 41 mmol/L (21-32) Anion Gap 0 (6-14) Blood Urea Nitrogen 15 mg/dL (8-26) Creatinine 0.6 mg/dL (0.7-1.3) Estimated GFR (Cockcroft-Gault) 134.4 Glucose Level 176 mg/dL (70-99) Calcium Level 8.7 mg/dL (8.5-10.1) Glucose (Fingerstick) 134 mg/dL (70-99) O2 Saturation 87 % (92-99) Arterial Blood pH 7.32 (7.35-7.45) Arterial Blood pCO2 at Patient Temp 83 mmHg (35-46) Arterial Blood pO2 at Patient Temp 52 mmHg (65-108) Arterial Blood HCO3 41 mmol/L (21-28) Arterial Blood Base Excess 12 mmol/L (-3-3) FiO2 100 Medications Active Scripts Medications Dose Route/Sig Max Daily Dose Days Date Category Rosuvastatin Calcium 40 Mg Tablet 40 Mg PO HS 02/07/19 Reported Zolpidem Tartrate 10 Mg Tablet 1 Tab PO QHS 07/10/16 Reported Zoloft (Sertraline Hcl) 100 Mg Tablet 1 Tab PO DAILY 07/10/16 Reported Potassium Chloride 10 Meq Capsule.er 10 Meq PO DAILY 07/10/16 Reported Miralax (Polyethylene Glycol 3350) 17 Gm Powd.pack 1 Packet PO DAILY 07/10/16 Reported Lorazepam 1 Mg Tablet 1 Tab PO BID 07/10/16 Reported Levothyroxine Sodium 175 Mcg Tablet 1 Tab PO DAILY 07/10/16 Reported Furosemide 20 Mg Tablet 1 Tab PO DAILY 07/10/16 Reported Carvedilol (Carvedilol) 12.5 Mg Tablet 1 Tab PO BID 07/10/16 Reported Amlodipine Besylate 10 Mg Tablet 10 Mg PO DAILY 07/10/16 Reported Comments cxr 02/12 no sig change Impression . IMPRESSION: 1. Acute on chronic hypoxemic respiratory failure. with worsening hypercapnia today 2. Acute aspiration pneumonia. 3. Abnormal x-ray compatible / Ct chest with extensive consolidation of entire right lung and LLL due to aspiration pneumonia. 4. History of tongue cancer, status post chemoradiation approximately 8 years ago. 5. Coronary artery disease with previous normal ejection fraction. 6. Anxiety and depression. 7. Underlying COPD. 8. Status post PEG tube placement. 9. Severe protein malnutrition, present upon admission. 10. Obstructive sleep apnea. 11. DYSPHAGIA/ESOPHAGEAL DILATATION CT CHEST IMPRESSION: 1. Severe nonspecific infiltrate/consolidation in both lungs, greater on the right. Findings are most concerning for infectious etiology and/or aspiration. Recommend continued follow-up imaging. 2. Irregularity and narrowing of the right mainstem bronchus, uncertain etiology, not seen on the prior study. Correlation with bronchoscopy may be beneficial. There is also a small nodule in the left mainstem bronchus, most likely mucous plug, although small endobronchial mass is possible. 3. Development of mild mediastinal and hilar lymph node enlargement. This is nonspecific and could be inflammatory or infectious, but neoplastic etiology is not excludable. Plan . D/W IN DETAIL/ EXPLAINED TO HER THAT IT WILL TAKE A LONG TIME FOR HIM TO RECOVER FROM THIS EXTENSIVE PNEUMONIA PLACE ON BIPAP WILL NOT TOLERATE BRONCH FLUTTER VALVE IF 02 NEEDS DECREASE WILL CONSIDER A BRONCH IN FUTURE F/U CXR 02/12 WITH NO CHANGE REVIEWED THE CT CHEST APPEARS ALL RELATED TO ACUTE AND CHRONIC ASPIRATION CONTINUOS FEEDING WILL NEED A REPEAT CT IN 6-8 WEEKS CONSIDER LTAC EVAL BS ABX PER ID D/W DR REN/ TAJ IRWIN MD Feb 13, 2019 12:08
--- NOTE | 2019-02-13 12:48 | NUR ---
ERAN following pt. Pt has been accepted at [facility]. Orders faxed and pt will transport via [facility] at [phone]. ERAN left a voice mail to pt's regarding plans. RN notified.
[2019-02-13 15:00] VITALS: BP 126/63
--- NOTE | 2019-02-13 22:37 | PDOC3 ---
Discharge Summary Visit Information Date of Admission: Feb 07, 2019 Date of Discharge: Feb 13, 2019 Admitting Diagnosis: Acute hypoxemic respiratory failure Final Diagnosis Problems Medical Problems: (1) Acute hypoxemic respiratory failure Status: Acute (2) Aspiration pneumonia Status: Acute Brief Hospital Course Allergies Allergies Coded Allergies Type Severity Reaction Last Updated Verified ciprofloxacin Allergy Intermediate 07/12/16 Yes codeine Adverse Reaction Intermediate Nausea 07/12/16 Yes Vital Signs Vital Signs Date Time Temp Pulse Resp B/P (MAP) Pulse Ox O2 Delivery O2 Flow Rate FiO2 02/13/19 15:42 90 BiPAP/CPAP 02/13/19 15:00 98.3 71 126/63 (84) 98.3 02/13/19 11:00 23 15.0 Lab Results Laboratory Tests Test 02/12/19 07:25 02/13/19 04:30 02/13/19 08:14 02/13/19 10:00 White Blood Count 9.5 x10^3/uL (4.0-11.0) 11.1 x10^3/uL (4.0-11.0) Red Blood Count 3.98 x10^6/uL (4.30-5.70) 3.86 x10^6/uL (4.30-5.70) Hemoglobin 12.3 g/dL (13.0-17.5) 11.7 g/dL (13.0-17.5) Hematocrit 36.9 % (39.0-53.0) 36.0 % (39.0-53.0) Mean Corpuscular Volume 93 fL (79-100) 93 fL (79-100) Mean Corpuscular Hemoglobin 31 pg (25-35) 30 pg (25-35) Mean Corpuscular Hemoglobin Concent 33 g/dL (31-37) 32 g/dL (31-37) Red Cell Distribution Width 14.7 % (11.5-14.5) 14.5 % (11.5-14.5) Platelet Count 161 x10^3/uL (140-400) 161 x10^3/uL (140-400) Neutrophils (%) (Auto) 82 % (31-73) 87 % (31-73) Lymphocytes (%) (Auto) 7 % (24-48) 3 % (24-48) Monocytes (%) (Auto) 10 % (0-9) 10 % (0-9) Eosinophils (%) (Auto) 1 % (0-3) 1 % (0-3) Basophils (%) (Auto) 0 % (0-3) 0 % (0-3) Neutrophils # (Auto) 7.8 x10^3/uL (1.8-7.7) 9.6 x10^3/uL (1.8-7.7) Lymphocytes # (Auto) 0.6 x10^3/uL (1.0-4.8) 0.3 x10^3/uL (1.0-4.8) Monocytes # (Auto) 0.9 x10^3/uL (0.0-1.1) 1.1 x10^3/uL (0.0-1.1) Eosinophils # (Auto) 0.1 x10^3/uL (0.0-0.7) 0.1 x10^3/uL (0.0-0.7) Basophils # (Auto) 0.0 x10^3/uL (0.0-0.2) 0.0 x10^3/uL (0.0-0.2) Sodium Level 141 mmol/L (136-145) 141 mmol/L (136-145) Potassium Level 3.3 mmol/L (3.5-5.1) 3.7 mmol/L (3.5-5.1) Chloride Level 100 mmol/L (98-107) 100 mmol/L (98-107) Carbon Dioxide Level 40 mmol/L (21-32) 41 mmol/L (21-32) Anion Gap 1 (6-14) 0 (6-14) Blood Urea Nitrogen 12 mg/dL (8-26) 15 mg/dL (8-26) Creatinine 0.5 mg/dL (0.7-1.3) 0.6 mg/dL (0.7-1.3) Estimated GFR (Cockcroft-Gault) 165.9 134.4 Glucose Level 121 mg/dL (70-99) 176 mg/dL (70-99) Calcium Level 8.9 mg/dL (8.5-10.1) 8.7 mg/dL (8.5-10.1) Segmented Neutrophils % 67 % (35-66) Band Neutrophils % 22 % (0-9) Lymphocytes % 3 % (24-48) Monocytes % 7 % (0-10) Eosinophils % 1 % (0-5) Platelet Estimate Adequate (ADEQUATE) Glucose (Fingerstick) 134 mg/dL (70-99) O2 Saturation 87 % (92-99) Arterial Blood pH 7.32 (7.35-7.45) Arterial Blood pCO2 at Patient Temp 83 mmHg (35-46) Arterial Blood pO2 at Patient Temp 52 mmHg (65-108) Arterial Blood HCO3 41 mmol/L (21-28) Arterial Blood Base Excess 12 mmol/L (-3-3) FiO2 100 Laboratory Tests Test 02/13/19 04:30 02/13/19 08:14 02/13/19 10:00 White Blood Count 11.1 x10^3/uL (4.0-11.0) Red Blood Count 3.86 x10^6/uL (4.30-5.70) Hemoglobin 11.7 g/dL (13.0-17.5) Hematocrit 36.0 % (39.0-53.0) Mean Corpuscular Volume 93 fL (79-100) Mean Corpuscular Hemoglobin 30 pg (25-35) Mean Corpuscular Hemoglobin Concent 32 g/dL (31-37) Red Cell Distribution Width 14.5 % (11.5-14.5) Platelet Count 161 x10^3/uL (140-400) Neutrophils (%) (Auto) 87 % (31-73) Lymphocytes (%) (Auto) 3 % (24-48) Monocytes (%) (Auto) 10 % (0-9) Eosinophils (%) (Auto) 1 % (0-3) Basophils (%) (Auto) 0 % (0-3) Neutrophils # (Auto) 9.6 x10^3/uL (1.8-7.7) Lymphocytes # (Auto) 0.3 x10^3/uL (1.0-4.8) Monocytes # (Auto) 1.1 x10^3/uL (0.0-1.1) Eosinophils # (Auto) 0.1 x10^3/uL (0.0-0.7) Basophils # (Auto) 0.0 x10^3/uL (0.0-0.2) Segmented Neutrophils % 67 % (35-66) Band Neutrophils % 22 % (0-9) Lymphocytes % 3 % (24-48) Monocytes % 7 % (0-10) Eosinophils % 1 % (0-5) Platelet Estimate Adequate (ADEQUATE) Sodium Level 141 mmol/L (136-145) Potassium Level 3.7 mmol/L (3.5-5.1) Chloride Level 100 mmol/L (98-107) Carbon Dioxide Level 41 mmol/L (21-32) Anion Gap 0 (6-14) Blood Urea Nitrogen 15 mg/dL (8-26) Creatinine 0.6 mg/dL (0.7-1.3) Estimated GFR (Cockcroft-Gault) 134.4 Glucose Level 176 mg/dL (70-99) Calcium Level 8.7 mg/dL (8.5-10.1) Glucose (Fingerstick) 134 mg/dL (70-99) O2 Saturation 87 % (92-99) Arterial Blood pH 7.32 (7.35-7.45) Arterial Blood pCO2 at Patient Temp 83 mmHg (35-46) Arterial Blood pO2 at Patient Temp 52 mmHg (65-108) Arterial Blood HCO3 41 mmol/L (21-28) Arterial Blood Base Excess 12 mmol/L (-3-3) FiO2 100 Brief Hospital Course Mr Olivo is a 68 yo M w/ PMHx tongue cancer status post chemoradiation in 2008 and maintained on tube feedings. Prior to admission after a bolus feed, he felt too tired to stay up and instead went to sleep, lying flat. He woke up with reflux and about an hour later had trouble breathing. He said he could not catch his breath. His oxygen saturations dropped to 75%. He has home oxygen as needed and applied 4 liters with minimal improvement. He was initially evaluated at [place]. He was afebrile with a normal white blood cell count, lactic acid 1.7. Chest x-ray showed consolidative infiltrate within the right mid and lower lung zone. Stable left lung base infiltrate. He was dosed with Unasyn before transferring down to [place]. Seen by pulmonology and ID. CT chest was performed. CT CHEST IMPRESSION: 1. Severe nonspecific infiltrate/consolidation in both lungs, greater on the right. Findings are most concerning for infectious etiology and/or aspiration. Recommend continued follow-up imaging. 2. Irregularity and narrowing of the right mainstem bronchus, uncertain etiology, not seen on the prior study. Correlation with bronchoscopy may be beneficial. There is also a small nodule in the left mainstem bronchus, most likely mucous plug, although small endobronchial mass is possible. 3. Development of mild mediastinal and hilar lymph node enlargement. This is nonspecific and could be inflammatory or infectious, but neoplastic etiology is not excludable. He was started on empiric HCAP treatment with vancomycin and zosyn, changed to zyvox and zosyn. CXR worsened 02/12/19 was on humidified mask 12-15 liters, seen with O2 saturatio ns 98%. He does not feel much better. Have discussed with he and his spouse bedside that his pulmonary recovery may be prolonged and that slow TF rather than bolus would be helpful. He feels more short of breath. No CP or abdominal pain. Wishes to eat right now. ABG shows 7.32/80/55, placed on BIPAP temporarily as he will have his nightly bipap as well. Assessment: Acute on chronic hypoxemic respiratory failure. with worsening hypercapnia today Acute aspiration pneumonia. Abnormal x-ray compatible / Ct chest with extensive consolidation of entire right lung and LLL due to aspiration pneumonia. History of tongue cancer, status post chemoradiation approximately 8 years ago. Coronary artery disease with previous normal ejection fraction. Anxiety and depression. Underlying COPD. Severe protein calorie malnutrition, present upon admission. Obstructive sleep apnea. DYSPHAGIA/ESOPHAGEAL DILATATION - Status post PEG tube placement. Plan: Will get repeat CXR, ABG on LTAC admit D/W IN DETAIL/ EXPLAINED TO HER THAT IT WILL TAKE A LONG TIME FOR HIM TO RECOVER FROM THIS EXTENSIVE PNEUMONIA PLACE ON BIPAP WILL NOT TOLERATE BRONCH currently but IF 02 NEEDS DECREASE WILL CONSIDER A BRONCH IN FUTURE FLUTTER VALVEREVIEWED THE CT CHEST APPEARS ALL RELATED TO ACUTE AND CHRONIC ASPIRATION CONTINUOS FEEDING WILL NEED A REPEAT CT IN 6-8 WEEKS Have d/w Pulmonology he would do better to recover in LTAC environment given his pulmonay status and recurrent aspirations. Discharge Information Condition at Discharge: Stable Follow Up: Weeks (1) Disposition/Orders: D/C to Another Facility ([facility]) Scheduled Amlodipine Besylate (Amlodipine Besylate) 10 Mg Tablet, 10 MG PO DAILY, (Reported) Entered as Reported by: ALYSSA MARADIAGA on 07/10/16548 Last Action: Continued on 02/07/191758 by MAYDA BROWNING Carvedilol (Carvedilol ) 12.5 Mg Tablet, 1 TAB PO BID, #180 Ref 1 (Reported) Entered as Reported by: ALYSSA MARADIAGA on 07/10/16548 Last Action: Continued on 02/07/191758 by MAYDA BROWNING Furosemide (Furosemide) 20 Mg Tablet, 1 TAB PO DAILY, #90 Ref 1 (Reported) Entered as Reported by: ALYSSA MARADIAGA on 07/10/16548 Last Action: Continued on 02/07/191758 by MAYDA BROWNING Levothyroxine Sodium (Levothyroxine Sodium) 175 Mcg Tablet, 1 TAB PO DAILY, #30 Ref 5 (Reported) Entered as Reported by: ALYSSA MARADIAGA on 07/10/16548 Last Action: Continued on 02/07/191758 by MAYDA BROWNING Lorazepam (Lorazepam) 1 Mg Tablet, 1 TAB PO BID, #60 (Reported) Entered as Reported by: ALYSSA MARADIAGA on 07/10/16548 Last Action: Continued on 02/07/191758 by MAYDA BROWNING Polyethylene Glycol 3350 (Miralax) 17 Gm Powd.pack, 1 PACKET PO DAILY, #30 Ref 3 (Reported) Entered as Reported by: ALYSSA MARADIAGA on 07/10/16548 Last Action: Continued on 02/07/191758 by MAYDA BROWNING Potassium Chloride (Potassium Chloride) 10 Meq Capsule.er, 10 MEQ PO DAILY, (Reported) Entered as Reported by: ALYSSA MARADIAGA on 07/10/16548 Last Action: Continued on 02/07/191758 by MAYDA BROWNING Rosuvastatin Calcium (Rosuvastatin Calcium) 40 Mg Tablet, 40 MG PO HS for cholesterol, (Reported) Entered as Reported by: Josefina Guzman on 02/07/191810 Last Action: Converted on 02/07/191821 by MAYDA BROWNING Sertraline Hcl (Zoloft) 100 Mg Tablet, 1 TAB PO DAILY, #30 Ref 5 (Reported) Entered as Reported by: ALYSSA MARADIAGA on 07/10/16548 Last Action: Converted on 02/07/191758 by MAYDA BROWNING Zolpidem Tartrate (Zolpidem Tartrate) 10 Mg Tablet, 1 TAB PO QHS, #30 Ref 2 (Reported) Entered as Reported by: ALYSSA MARADIAGA on 07/10/16548 Last Action: HELD on 02/07/191758 by MAYDA BROWNING Discontinued Medications Acyclovir (Acyclovir) 200 Mg Capsule, 1 CAP PO 5XDAY, #25 (Reported) Entered as Reported by: ALYSSA MARADIAGA on 07/10/16548 Last Action: Discontinued on 02/07/191809 by Josefina Guzman Aspirin (Aspirin) 81 Mg Tab.chew, 1 TAB PO DAILY, #30 Ref 3 (Reported) Entered as Reported by: ALYSSA MARADIAGA on 07/10/16548 Last Action: Discontinued on 02/07/191810 by Josefina Guzman Atorvastatin Calcium (Atorvastatin Calcium) 80 Mg Tablet, 1 TAB PO DAILY, #30 Ref 5 (Reported) Entered as Reported by: ALYSSA MARADIAGA on 07/10/16548 Last Action: Discontinued on 02/07/191810 by Josefina Guzman Ferrous Sulfate (Ferrous Sulfate) 325 Mg Tablet, 1 TAB PO DAILY, #30 Ref 3 (Reported) Entered as Reported by: ALYSSA MARADIAGA on 07/10/16548 Last Action: Discontinued on 02/07/191809 by Josefina Guzman Pilocarpine Hcl (Pilocarpine Hcl) 5 Mg Tablet, 5 MG PO BID, (Reported) Entered as Reported by: ALYSSA MARDAIAGA on 07/10/16548 Last Action: Discontinued on 02/07/191809 by JAIR Kumar MD Feb 13, 2019 22:37
== END 2019-02-13 16:30 | DRG 177 ==
LOC: 1 WEST ICU 17:20 → 5 SOUTH 02-10 18:39
PROVIDERS: ADMIT Internal Medicine; ATTEND Internal Medicine
PROC: 5A09357 Assistance with Respiratory Ventilation, Less than 24 Consecutive Hours, Continuous Positive Airway Pressure (ICD-10-PCS; principal; 2019-02-07)
PROC: 5A09357 Assistance with Respiratory Ventilation, Less than 24 Consecutive Hours, Continuous Positive Airway Pressure (ICD-10-PCS; 2019-02-08)
PROC: 5A09357 Assistance with Respiratory Ventilation, Less than 24 Consecutive Hours, Continuous Positive Airway Pressure (ICD-10-PCS; 2019-02-09)
PROC: 5A09357 Assistance with Respiratory Ventilation, Less than 24 Consecutive Hours, Continuous Positive Airway Pressure (ICD-10-PCS; 2019-02-10)
PROC: 5A09357 Assistance with Respiratory Ventilation, Less than 24 Consecutive Hours, Continuous Positive Airway Pressure (ICD-10-PCS; 2019-02-12)
DX: J69.0 Pneumonitis due to inhalation of food and vomit (principal); J96.21 Acute and chronic respiratory failure with hypoxia; E43 Unspecified severe protein-calorie malnutrition; J96.22 Acute and chronic respiratory failure with hypercapnia; I11.0 Hypertensive heart disease with heart failure; I50.9 Heart failure, unspecified; C32.9 Malignant neoplasm of larynx, unspecified; I95.9 Hypotension, unspecified; G47.33 Obstructive sleep apnea (adult) (pediatric); J44.9 Chronic obstructive pulmonary disease, unspecified; F32.9 Major depressive disorder, single episode, unspecified; F41.9 Anxiety disorder, unspecified; E78.5 Hyperlipidemia, unspecified; I73.9 Peripheral vascular disease, unspecified; E03.9 Hypothyroidism, unspecified; K21.9 Gastro-esophageal reflux disease without esophagitis; R13.10 Dysphagia, unspecified; N40.0 Benign prostatic hyperplasia without lower urinary tract symptoms; N19 Unspecified kidney failure; I25.10 Atherosclerotic heart disease of native coronary artery without angina pectoris; D64.9 Anemia, unspecified; Z66 Do not resuscitate; Z68.26 Body mass index [BMI] 26.0-26.9, adult; Z93.1 Gastrostomy status; Z88.5 Allergy status to narcotic agent; Z88.1 Allergy status to other antibiotic agents; Z87.891 Personal history of nicotine dependence; Z85.810 Personal history of malignant neoplasm of tongue; Z92.21 Personal history of antineoplastic chemotherapy; Z92.3 Personal history of irradiation; Z99.81 Dependence on supplemental oxygen; I25.2 Old myocardial infarction; Z86.19 Personal history of other infectious and parasitic diseases; Z82.5 Family history of asthma and other chronic lower respiratory diseases; Z80.0 Family history of malignant neoplasm of digestive organs
CPT/HCPCS: 36415; 36600; 71045; 71260; 80048; 80053; 80202; 82565; 82805; 82962; 83880; 84145; 85007; 85025; 85610; 87070; 87205; 93308; 94640; 94660; 94667; 94760; J1650; J2543; J3370; J7030; J7040; J7050; J7620; Q9967; 97530; 97535; G0378